=== PATIENT | male | born 1950 | race Caucasian/White ===

== ENCOUNTER → 2016-04-24 | Outpatient (CLI) | payer BC ==
[~2016-04-24] MED LIST: ACET-1257 PO; ASCO100061 PO; B-CO-25 PO; BACL1TAB PO; BACLOFEN PUMP SQ; CALC500C70 PO; CHOL1000 PO; DIME1CAP2 PO; DOCU100C PO; LEVO-366 PO; LRS10 PO; MISO200T PO; OMEG10007 PO; ONDA4TAB10 SL; SACC250C11 PO; SERT50TA PO; SODI1ENE RE; SULF800T23 PO
[2016-04-24 17:08] LABS: BASO % 0.9 %; BASO ABS # 0.08 K/uL (0-0.2); COMPLETE YES; EOS % 1.9 %; HEMATOCRIT 47.1 % (42-52); IG% 0.1 %; LYMPH % 24.4 %; LYMPH ABS # 2.23 K/uL (1.2-3.4); MEAN CELL VOLUME 92.7 fL (80-100); MEAN CORPUSCULAR HEMOGLOBIN 32.1 pg (25-34); MEAN CORPUSCULAR HGB CONC 34.6 g/dl (32-36); MEAN PLATELET VOLUME 11.2 fL (7.4-10.4); MONO % 8.5 %; NEUT % 64.2 %; PLATELET COUNT 341 K/uL (130-400); RED BLOOD COUNT 5.08 M/uL (4.7-6.1); WHITE BLOOD COUNT 9.15 K/uL (4.8-10.8)
[2016-04-24 17:16] LABS: ALT/SGPT 32 U/L (12-78); AST/SGOT 10 U/L (15-37); BLOOD UREA NITROGEN 18 mg/dl (7-18); BUN/CREATININE RATIO 24.8 (10-20); CALCIUM 9.3 mg/dl (8.5-10.1); CARBON DIOXIDE 29 mmol/L (21-32); CHLORIDE 99 mmol/L (98-107); CREATININE 0.72 mg/dl (0.60-1.40); GLUCOSE 82 mg/dl (70-99); POTASSIUM 4.2 mmol/L (3.5-5.1); SODIUM 138 mmol/L (136-145)
[2016-04-24 17:19] LABS: ALKALINE PHOSPHATASE 65 U/L (45-117)
== END | disposition home or self-care (01) ==
LOC: C.LABBC 12:41
PROVIDERS: ATTEND Psychiatry & Neurology Neurology
DX: G35 Multiple sclerosis (principal)

== ENCOUNTER → 2016-07-03 | Outpatient (CLI) | payer BC ==
[~2016-07-03] MED LIST changes: +AMX500 PO; +CIPR1TAB10 PO
[2016-07-03 11:33] LABS: ALT/SGPT 38 U/L (12-78); BLOOD UREA NITROGEN 11 mg/dl (7-18); BUN/CREATININE RATIO 13.8 (10-20); CALCIUM 9.5 mg/dl (8.5-10.1); CARBON DIOXIDE 34 mmol/L (21-32); CHLORIDE 101 mmol/L (98-107); GLUCOSE 91 mg/dl (70-99); POTASSIUM 4.5 mmol/L (3.5-5.1); SODIUM 139 mmol/L (136-145)
[2016-07-03 11:44] LABS: ALB/GLOB RATIO 0.9 (0.9-2); ALKALINE PHOSPHATASE 76 U/L (45-117); AST/SGOT 14 U/L (15-37)
[2016-07-06 20:01] LABS: JCV ANTIBODY POSITIVE; JCV INDEX 0.45
--- NOTE | 2016-07-09 08:38 | CODING QUERY MEDICAL NECESSITY ---
SUPPORTING DIAGNOSIS NEEDED Dr. Thomson, A supporting diagnosis is required for the test/procedure performed on this patient in order for us to be reimbursed by the patient's insurance. Please provide a supporting diagnosis for the following test/procedure listed below next to the test name along with your signature. *If there is no additional diagnosis for this patient that would support the following test/procedure please document that below next to the test/procedure. Test(s)/Procedure(s) that require a supporting diagnosis: * ([id number]) B12 VITAMIN LEVEL DIAGNOSIS: DATE OF SERVICE: 07/03/16 Provider Signature: Date: Thank you Mario Alberto Crouch [facility] Information Management Once completed, please kindly fax back to [phone] For questions please call [phone]
== END | disposition home or self-care (01) ==
LOC: C.LAB 09:16
PROVIDERS: ATTEND Psychiatry & Neurology Neurology
DX: G35 Multiple sclerosis (principal); E55.9 Vitamin D deficiency, unspecified; R41.3 Other amnesia

== ENCOUNTER → 2016-07-28 | Outpatient (CLI) | payer BC ==
[~2016-07-28] MED LIST changes: -LRS10 PO
[2016-07-28 15:00] LABS: URINE APPEARANCE CLEAR (CLEAR); URINE BILIRUBIN NEG (NEG); URINE COLOR YELLOW; URINE EPITHELIAL CELL AUTO >30 /lpf (0-5); URINE NITRITE NEG (NEG); URINE PH 6.5 (4.5-7.5); URINE SPECIFIC GRAVITY 1.008 (1.000-1.030); UROBILINOGEN NEG (NEG)
[2016-07-28 15:08] LABS: MANUAL MICROSCOPIC REQUIRED? NO; REVIEW REQ? YES
== END | disposition home or self-care (01) ==
LOC: C.LABSPEC 14:22
PROVIDERS: ATTEND Internal Medicine
DX: N39.0 Urinary tract infection, site not specified (principal)

== ENCOUNTER → 2016-07-30 | Outpatient (CLI) | payer BC | END | disposition home or self-care (01) | LOC: C.LABSPEC 12:24 | PROVIDERS: ATTEND Internal Medicine | DX: N39.0 Urinary tract infection, site not specified (principal) ==

== ENCOUNTER → 2016-08-01 | Outpatient (CLI) | payer BC ==
--- NOTE | 2016-08-01 14:47 | DIAGNOSTIC IMAGING REPORT ---
RENAL ULTRASOUND HISTORY: NEUROGENIC BLADDER COMPARISON: None. FINDINGS: Right kidney: Maximum dimension 9.2 cm. No evidence for hydronephrosis. Normal corticomedullary differentiation and cortical thickness. Left kidney: Maximum dimension 9.3 cm. No evidence for hydronephrosis. Normal corticomedullary differentiation and cortical thickness. Bladder: No bladder wall thickening. The bilateral ureteral jets were identified. IMPRESSION: Negative study Electronically signed by: Pelon Carballo M.D. 08/01/2016 2:46 PM Dictated Date/Time: 08/01/2016 2:45 PM
--- NOTE | 2016-08-01 15:08 | DIAGNOSTIC IMAGING REPORT ---
LUMBAR SPINE 2 OR 3 VIEWS CLINICAL HISTORY: NEUROGENIC BLADDER COMPARISON STUDY: 04/30/2010 FINDINGS: Bio stimulator and/or infusion catheter with the superior margin of proximal level of T9. There is been interval placement of an electrode in the left mid sacrum at approximately S2 level. No attached lead is identified. IMPRESSION: Electrode placed overlying the left S2 segment. Pre-existing intrathecal infusion device in the low thoracic region. Electronically signed by: Pelon Carballo M.D. 08/01/2016 3:06 PM Dictated Date/Time: 08/01/2016 3:02 PM
== END | disposition home or self-care (01) ==
LOC: C.ULTR 13:51
PROVIDERS: ATTEND Urology
DX: M79.5 Residual foreign body in soft tissue (principal); N31.9 Neuromuscular dysfunction of bladder, unspecified; R33.9 Retention of urine, unspecified

== ENCOUNTER → 2016-08-04 | Outpatient (CLI) | payer BC | END | disposition home or self-care (01) | LOC: C.LABSPEC 12:36 | PROVIDERS: ATTEND Internal Medicine | DX: N39.0 Urinary tract infection, site not specified (principal) ==

== ENCOUNTER → 2016-08-22 | Outpatient (CLI) | payer BC | LOC: C.LABSPEC 14:17 | PROVIDERS: ATTEND Internal Medicine | DX: N39.0 Urinary tract infection, site not specified (principal) ==

== ENCOUNTER 2016-09-02 09:28 | Day surgery (SDC) | payer BC ==
--- NOTE | 2016-06-30 09:08 | History and Physical ---
History & Physical Date of Service Jun 30, 2016. History & Physical Plan of care discussed with Dr. Solis CHIEF COMPLAINT: Chronic intractable lower extremity spasticity HISTORY OF PRESENT ILLNESS: Mr. Villegas is a 65 year old white male that is well known to the [facility] with a history of multiple sclerosis. Gradually throughout the disease he started to experience increased lower extremity spasticity which has caused the patient to remain wheelchair bound. Patient had the intrathecal Baclofen pump implanted in 2010 which does provide moderate improvement of the lower extremity spasticity. PAST MEDICAL HISTORY: 1. History of pressure ulcers 2. Multiple sclerosis 3. Gastroesophageal reflux disease 4. Neurogenic bladder PAST SURGICAL HISTORY: 1. Bladder stimulator implantation and removal, leads left in place 2. Intrathecal baclofen pump implantation 2010 3. Vasectomy SOCIAL HISTORY: Patient is . His is his primary branch service specialist. He does have 1 son from his previous marriage. No smoking, alcohol, or illicit substance abuse. ALLERGIES: No known drug allergies MEDICATIONS: 1. Tylenol 500 mg every 4 hours as needed 2. Ascorbic acid 1000 mg daily 3. Baclofen 5 mg PO as needed 4. Calcium/vitamin D 1 tablet every 2 days 5. Dimethyl fumarate 240 mg twice daily 6. Colace 400 mg daily 7. Fish oil 1 capsule daily 8. Sertraline 50 mg daily 9. Fleets enema typically 3 times weekly REVIEW OF SYSTEMS: Denies any constitutional, cardiac, pulmonary, neurological, GI, , extremity, endocrine, neuro, ENT, dermatological, or musculoskeletal complaints other than stated in HPI PHYSICAL EXAMINATION: VITAL SIGNS: Per admission GENERAL: Mr. Villegas is a 65 year old white male that appears older than his stated age. He appears frail. Speech and cognition is intact. Mood and affect is appropriate. HEAD: Normocephalic; atraumatic. EYES: Pupils are round, equal, and reactive to light; EOM intact. ENT: No external ear discharge or lesions. No rhinorrhea or epistaxis. No mucosal lesions. NECK: Full ROM; trachea is midline. CHEST: Regular chest respiration and excursion. ABDOMEN: Active bowel sounds throughout; non-tender to palpation. No peritoneal signs. Pump is located in the right lower quadrant. EXTREMITIES: There is atrophy of the bilateral lower extremities. There is moderate spasticity of the lower extremities. No ashlee spasms noted. BACK: No midline or facet tenderness. No SI joint tenderness. NEURO: CN II-XII grossly intact with no focal deficits noted. AAO x 3. SKIN: No lesions, erythema, or rashes noted. ASSESSMENT: Chronic intractable lower extremity spasticity secondary to multiple sclerosis TREATMENT: Mr. Villegas is a 65 year old white male that reports adequate lower extremity spasticity relief with the use of the intrathecal Baclofen pump. As the pump is estimated at 6 months, it is recommended that the intrathecal pump be replaced. Risks and benefits were reviewed with the patient. Procedure was explained and the patient would like to proceed with the pump replacement. The surgery is tentatively planned on 07/08/16.
[2016-07-03 09:43] VITALS: BMI 21.0
--- NOTE | 2016-07-03 10:28 | PAT Medication Instructions ---
Service Date Jul 03, 2016. Current Home Medication List Acetaminophen (Tylenol Extra Strength), 500 MG PO Q4H PRN for FEVER, PAIN Ascorbic Acid (Ascorbic Acid), 1,000 MG PO QAM B-Complex W/ Folic Acid (Super B Complex Maxi), 1 TAB PO QAM Baclofen (Lioresal), 0.5 TAB PO TID PRN for prn Calcium/Vitamin D (Os-Wild 500 Plus D), 1 TAB PO Q2D Cholecalciferol (Vitamin D3), 5,000 UNITS PO QAM Dimethyl Fumarate (Tecfidera), 240 MG PO BID Docusate Sodium (Stool Softener), 200 MG PO BID Fish Oil ([place]-3), 1 CAP PO BID Misoprostol (Cytotec), 100 MCG PO BID Saccharomyces Boulardii (Probiotic), 1 CAP PO QAM Sertraline (Zoloft), 1 TAB PO QAM Sodium Phosphates (Fleet Enema Six Pack), 1 RE THREE TIMES WEEKLY [Baclofen Pump], SQ CONTINOUS Medication Instructions For Your Scheduled Surgery Baclofen Pump SQ CONTINOUS (continue as usual) - Hold the following medications starting today (07/03/16) Fish Oil ([place]-3), 1 CAP PO BID - Hold the following medications the morning of surgery: Sodium Phosphates (Fleet Enema Six Pack), 1 RE THREE TIMES WEEKLY Saccharomyces Boulardii (Probiotic), 1 CAP PO QAM Docusate Sodium (Stool Softener), 200 MG PO BID Cholecalciferol (Vitamin D3), 5,000 UNITS PO QAM Calcium/Vitamin D (Os-Wild 500 Plus D), 1 TAB PO Q2D Baclofen (Lioresal), 0.5 TAB PO TID PRN for prn Ascorbic Acid (Ascorbic Acid), 1,000 MG PO QAM B-Complex W/ Folic Acid (Super B Complex Maxi), 1 TAB PO QAM Misoprostol (Cytotec), 100 MCG PO BID - Take the following medications the morning of surgery with a sip of water: Sertraline (Zoloft), 1 TAB PO QAM Dimethyl Fumarate (Tecfidera), 240 MG PO BID Acetaminophen (Tylenol Extra Strength), 500 MG PO Q4H PRN for FEVER, PAIN ( if needed) - Take the following medications as scheduled the night before surgery: Sodium Phosphates (Fleet Enema Six Pack), 1 RE THREE TIMES WEEKLY Docusate Sodium (Stool Softener), 200 MG PO BID Baclofen (Lioresal), 0.5 TAB PO TID PRN for prn Dimethyl Fumarate (Tecfidera), 240 MG PO BID Misoprostol (Cytotec), 100 MCG PO BID Acetaminophen (Tylenol Extra Strength), 500 MG PO Q4H PRN for FEVER, PAIN If you have any questions please call us at [phone] or [phone] ( Maira) or [phone]
[2016-07-03 11:26] LABS: BASO % 0.7 %; BASO ABS # 0.07 K/uL (0-0.2); COMPLETE YES; EOS % 1.6 %; HEMATOCRIT 46.1 % (42-52); IG% 0.1 %; LYMPH ABS # 1.75 K/uL (1.2-3.4); MEAN CELL VOLUME 92.4 fL (80-100); MEAN CORPUSCULAR HEMOGLOBIN 33.3 pg (25-34); MEAN PLATELET VOLUME 10.7 fL (7.4-10.4); MONO % 8.7 %; NEUT % 70.9 %; PLATELET COUNT 301 K/uL (130-400); RED BLOOD COUNT 4.99 M/uL (4.7-6.1); WHITE BLOOD COUNT 9.74 K/uL (4.8-10.8)
[2016-07-03 11:31] LABS: URINE APPEARANCE CLOUDY (CLEAR); URINE BILIRUBIN NEG (NEG); URINE COLOR YELLOW; URINE NITRITE POS (NEG); URINE PH 6.5 (4.5-7.5); URINE SPECIFIC GRAVITY 1.014 (1.000-1.030); UROBILINOGEN NEG (NEG)
[2016-07-03 11:39] LABS: MANUAL MICROSCOPIC REQUIRED? NO; REVIEW REQ? YES
[2016-07-03 11:40] LABS: URINE EPITHELIAL CELL AUTO 0-5 /lpf (0-5)
[~2016-09-02] VITALS: Ht 182.9 cm; Wt 70.5 kg
[~2016-09-02 09:28] MED LIST changes: -AMX500 PO; +CEFAZOLIN 2000 MG/60 ML D5W 50 ML IV SCH; +CEFAZOLIN 2000 MG/60 ML D5W IV SCH; -CIPR1TAB10 PO; +LACTATED RINGER'S 1000ML 1,000 ML IV SCH; -LEVO-366 PO; -ONDA4TAB10 SL; -SULF800T23 PO
[2016-09-02] MEDS ORDERED: MIDAZOLAM HCL 1 MG/ML 2ML VIAL ONE (09:40)
[2016-09-02] MEDS ORDERED: FENTANYL CITRATE INJ 50 MCG/1 ML 2 ML VIAL ONE (09:40)
[2016-09-02 10:15] VITALS: BP 122/60; PULSE 56; TEMP 36.7; O2SAT 99; Ht 182.9 cm; Wt 70.5 kg
[2016-09-02] MEDS ORDERED: LIDOCAINE HCL 2% 2 ML VIAL (20MG/ML) ONE (10:24)
[2016-09-02] MEDS ORDERED: PROPOFOL IV EMULSION 10 MG/ML 20 ML VIAL IV ONE ×2 (10:24→12:28)
--- NOTE | 2016-09-02 11:11 | History and Physical ---
History & Physical Date of Service Sep 02, 2016. History & Physical Plan of care discussed with Dr. Solis CHIEF COMPLAINT: Chronic intractable lower extremity spasticity HISTORY OF PRESENT ILLNESS: Mr. Villegas is a 66 year old white male that is well known to the [facility] with a history of multiple sclerosis. Gradually throughout the disease he started to experience increased lower extremity spasticity which has caused the patient to remain wheelchair bound. Patient had the intrathecal Baclofen pump implanted in 2010 which does provide moderate improvement of the lower extremity spasticity. PAST MEDICAL HISTORY: 1. History of pressure ulcers 2. Multiple sclerosis 3. Gastroesophageal reflux disease 4. Neurogenic bladder PAST SURGICAL HISTORY: 1. Bladder stimulator implantation and removal, leads left in place 2. Intrathecal baclofen pump implantation 2010 3. Vasectomy SOCIAL HISTORY: Patient is . His is his primary regional service manager. He does have 1 son from his previous marriage. No smoking, alcohol, or illicit substance abuse. ALLERGIES: No known drug allergies MEDICATIONS: 1. Tylenol 500 mg every 4 hours as needed 2. Ascorbic acid 1000 mg daily 3. Baclofen 5 mg PO as needed 4. Calcium/vitamin D 1 tablet every 2 days 5. Dimethyl fumarate 240 mg twice daily 6. Colace 400 mg daily 7. Fish oil 1 capsule daily 8. Sertraline 50 mg daily 9. Fleets enema typically 3 times weekly REVIEW OF SYSTEMS: Denies any constitutional, cardiac, pulmonary, neurological, GI, , extremity, endocrine, neuro, ENT, dermatological, or musculoskeletal complaints other than stated in HPI PHYSICAL EXAMINATION: VITAL SIGNS: Per admission GENERAL: Mr. Villegas is a 66 year old white male that appears older than his stated age. He appears frail. Speech and cognition is intact. Mood and affect is appropriate. HEAD: Normocephalic; atraumatic. EYES: Pupils are round, equal, and reactive to light; EOM intact. ENT: No external ear discharge or lesions. No rhinorrhea or epistaxis. No mucosal lesions. NECK: Full ROM; trachea is midline. CHEST: Regular chest respiration and excursion. ABDOMEN: Active bowel sounds throughout; non-tender to palpation. No peritoneal signs. Pump is located in the right lower quadrant. EXTREMITIES: There is atrophy of the bilateral lower extremities. There is moderate spasticity of the lower extremities. No ashlee spasms noted. BACK: No midline or facet tenderness. No SI joint tenderness. NEURO: CN II-XII grossly intact with no focal deficits noted. AAO x 3. SKIN: No lesions, erythema, or rashes noted. ASSESSMENT: Chronic intractable lower extremity spasticity secondary to multiple sclerosis TREATMENT: Mr. Villegas is a 66 year old white male that reports adequate lower extremity spasticity relief with the use of the intrathecal Baclofen pump. As the pump is about to , it is recommended that the intrathecal pump be replaced. Risks and benefits were reviewed with the patient. Procedure was explained and the patient would like to proceed with the pump replacement. The surgery is tentatively planned on 09/02/16
[2016-09-02] MEDS ORDERED: ONDANSETRON INJ 2 MG/ML 2 ML VIAL IV PRN (11:45)
[2016-09-02] MEDS ORDERED: HYDROCODONE/ACETAMOPHEN 5/325MG TAB PO PRN (11:45)
[2016-09-02] MEDS ORDERED: ATROPINE SULFATE 0.1 MG/ML 5ML SYR IV PRN (11:45)
[2016-09-02] MEDS ORDERED: LABETALOL HCL IV 5 MG/ML 20ML IV PRN (11:45)
[2016-09-02] MEDS ORDERED: LIDO 2%/EPINEPHRINE 1:100000 20 ML VIAL INFIL ONE (11:45)
[2016-09-02] MEDS ORDERED: BUPIVACAINE/EPINEPHRINE 0.25% 1:200,000 30 ML VIAL ONE (11:45)
[2016-09-02] MEDS ORDERED: HYDROmorphone INJ 2 MG/ML SYR/VIAL IV PRN (11:45)
[2016-09-02] MEDS ORDERED: BACITRACIN 50000 UNIT VIAL ONE (11:46)
--- NOTE | 2016-09-02 11:47 | Discharge Instructions ---
Discharge Instructions Date of Service Sep 02, 2016. Visit Reason for Visit: Multiple Sclerosis with Bilateral Lower Extremity Discharge Discharge Diagnosis / Problem: Spasticity Discharge Goals Goal(s): Decrease discomfort, Improve function Medications Stopped Medications Name(s): None Activity Recommendations Activity Recommendations: no repetitive bending, no repetitive reaching over head, no showers for 3 days Lifting Limitations: no more than 5 pounds Exercise/Sports Limitations: gradually increase as tolerated May Resume Sexual Activity: when tolerated Driving or Machine Use: resume 3 days after discharge Anesthesia . Post Anesthesia Instructions: If you have had General Anesthesia or IV Sedation: * Do not drive today. * Resume driving when surgeon permits. * Do not make important decisions or sign legal documents today. * Call surgeon for: * Temperature elevations greater than 101 degrees F. * Uncontrollable pain. * Excessive bleeding. * Persistent nausea and vomiting. * Medication intolerance (nausea, vomiting or rash). * For nausea and vomiting use only clear liquids such as: tea, soda, bouillon until nausea subsides, then gradually increase diet as tolerated. * If you have any concerns or questions, call your surgeon's office. If physician is unavailable and it is an emergency, call 911 or go to the nearest emergency room. . Instructions Instructions / Follow-Up . * Change dressings daily. Apply sterile dry gauze. * Call [facility] [phone] or go to the nearest emergency room if he experience high fevers, new back pain, new neurological symptoms such as numbness or weakness in the lower extremity or new bowel bladder incontinence. Also of call if he experience a headache that is positional. * Wear abdominal binder. * No showers for 3 days. * Resume normal activity. No repetitive bending, twisting or reaching overhead for 2 weeks. Do not lift more than 5 pounds for 2 weeks. . Follow-Up Follow-Up: 1 week in office for wound check Diet Recommendations Home Diet: resume previous diet Procedures Procedures Performed: Replacement intrathecal pump Pending Studies Studies pending at discharge: no Medical Emergencies . Who to Call and When: Medical Emergencies: If at any time you feel your situation is an emergency, please call 911 immediately. . Non-Emergent Contact Non-Emergency issues call your: Pain Management provider Call Non-Emergent contact if: temperature is above 101.5, your pain is not controlled, your pain is worsening, your pain is unusual for you, wound has increased drainage, wound has increased redness, wound has increased pain . . "Provider Documentation" section prepared by Ramon Solis. .
[2016-09-02] MEDS ORDERED: EpHEDrine SULFATE 50MG/5ML SYR ONE (12:28)
[2016-09-02] MEDS ORDERED: LARYING-O-JET KIT (LTA) ONE ×2 (12:28)
[2016-09-02] MEDS ORDERED: METOCLOPRAMIDE HCL INJ 5 MG/ML 2 ML VIAL ONE (12:28)
[2016-09-02] MEDS ORDERED: ONDANSETRON INJ 2 MG/ML 2 ML VIAL ONE (12:28)
--- NOTE | 2016-09-02 13:59 | [facility] Operative Report ---
Operative Report Operative Date Sep 02, 2016. Pre-Operative Diagnosis End of life intrathecal Baclofen pump Post-Operative Diagnosis same Surgeon Dr. Ramon Pardo Capacity Planning Manager Surgeon(s) Brenda Bright PA-c Estimated Blood Loss 10 ML Findings see below Specimens A: Explanted Intrathecal Baclofen pump Drains none Anesthesia General Complication(s) None Disposition Recovery Room / PACU Description of Procedure INTRATHECAL PUMP REPLACEMENT PROCEDURE PERFORMED: Intrathecal pump replacement PREOPERATIVE DIAGNOSIS: End of life intrathecal pump POSTOPERATIVE DIAGNOSIS: Same. COMPLICATIONS: None. SURGEON: Dr. Arvin Solis. ANESTHESIA: General. MATERIAL FORWARDED TO THE LAB: Explanted pump. EBL: 10 ml IMPLANTED PUMP SIZE: 20 mL. MEDICATIONS PLACED IN THE PUMP: Baclofen 1,500 mcg/ml INDICATIONS: The patient had an end of life pump with less than 1 month prior to system failure, thus requiring replacement. The patient was explained the risks, benefits, alternatives of the procedure and agreed to proceed as above. Informed consent was obtained and witnessed. A time out was performed after the patient was brought into the Operating Room. Antibiotics were given. The patient was then induced with general anesthesia without complications and was placed in the supine. The skin was prepped with drraprep and betadiene and draped in sterile fashion. The existing pump was identified and using a scalpel , electro cautery, and blunt dissection, the existing pump was exposed. The four retaining sutures were removed and the old pump was explanted. The catheter was disconnected from the old pump and free flowing CSF was noted. The new pump was opened and prepared according to [employer] standards and was filled with 20 mL of new medication of same type and concentration. The pump catheter was secured to the new pump and secured. The catheter access port was accessed and revealed free flowing CSF. Next, the pocket was irrigated with sterile normal saline with bacitracin. Hemostasis was checked. The new pump was placed into the pocket in the 12 O'clock position. The intrathecal pump was anchored in the pocket with 4-0 Prolene sutures. Both wounds were irrigated with bacitracin-containing normal saline. Both wounds were closed in similar fashion using continuous 0 V lock suture for deeper layer and running 3-0 V lock suture for subcuticular layer. Prineo to the skin. 4 x 4 gauze and pressure dressing was applied to both sites. Abdominal binder was placed. At the conclusion of the procedure, the pump was re-interrogated and reprogrammed to deliver baclofen 319.5 mcg per day. The patient was allowed to emerge from general anesthesia and transported to the recovery room in stable condition uneventfully. The patient will follow up at [facility] pain clinic within 7 days for a wound check and then plan to have the amee removed at day 14. I attest to the content of the Intraoperative Record and any orders documented therein. Any exceptions are noted below.
--- NOTE | 2016-09-02 14:15 | Anesthesiology Progress Note ---
Anesthesia Post Op Note Date & Time Sep 02, 2016 at 14:15 Vital Signs Pain Intensity: 0 Vital Signs Past 12 Hours Date Time Temp Pulse Resp B/P (MAP) Pulse Ox O2 Delivery O2 Flow Rate FiO2 09/02/16 13:39 36.5 86 16 114/70 96 Mask 10 09/02/16 10:15 36.7 56 18 122/60 (80) 99 Room Air Notes Mental Status: alert / awake / arousable, participated in evaluation Pt Amnestic to Procedure: Yes Nausea / Vomiting: adequately controlled Pain: adequately controlled Airway Patency, RR, SpO2: stable & adequate BP & HR: stable & adequate Hydration State: stable & adequate Anesthetic Complications: no major complications apparent
[2016-09-02 14:41] VITALS: BP 133/86; PULSE 87; TEMP 36.4; O2SAT 94
[2016-09-02 15:00] VITALS: BP 115/73; PULSE 80; O2SAT 96
[2016-09-02 15:30] VITALS: BP 117/70; PULSE 80; O2SAT 96
[2016-09-02 16:30] VITALS: BP 121/62; PULSE 76; TEMP 36.4; O2SAT 95
[2017-02-27] MEDS ORDERED: AMX500 PO (07:46)
[2017-02-27] MEDS ORDERED: CIPR1TAB10 PO (07:46)
== END 2016-09-02 16:50 | disposition home or self-care (01) ==
LOC: C.ACU 09:28
PROVIDERS: ATTEND Anesthesiology
DX: Z45.89 Encounter for adjustment and management of other implanted devices (principal); G35 Multiple sclerosis; K21.9 Gastro-esophageal reflux disease without esophagitis; N31.9 Neuromuscular dysfunction of bladder, unspecified; Z79.899 Other long term (current) drug therapy

== ENCOUNTER 2016-09-15 10:38 | Emergency (ER) | payer BC ==
[~2016-09-15] VITALS: Ht 182.9 cm; Wt 70.0 kg
[~2016-09-15 10:38] MED LIST changes: -CEFAZOLIN 2000 MG/60 ML D5W 50 ML IV SCH; -CEFAZOLIN 2000 MG/60 ML D5W IV SCH; -LACTATED RINGER'S 1000ML 1,000 ML IV SCH
[2016-09-15 11:04] VITALS: TEMP 36.5; Ht 182.9 cm; Wt 70.0 kg
[2016-09-15] MEDS ORDERED: SODIUM CHLORIDE 0.9% 1000ML 1,000 ML IV STA (12:08)
[2016-09-15] MEDS ORDERED: ONDANSETRON 8 MG/54 ML D5W IV STA (12:08)
[2016-09-15 12:28] LABS: BASO % 0.9 %; BASO ABS # 0.07 K/uL (0-0.2); COMPLETE YES; EOS % 2.3 %; HEMATOCRIT 47.5 % (42-52); IG% 0.2 %; LYMPH % 21.7 %; LYMPH ABS # 1.78 K/uL (1.2-3.4); MEAN CELL VOLUME 93.7 fL (80-100); MEAN CORPUSCULAR HEMOGLOBIN 32.3 pg (25-34); MEAN CORPUSCULAR HGB CONC 34.5 g/dl (32-36); MEAN PLATELET VOLUME 10.8 fL (7.4-10.4); MONO % 6.6 %; NEUT % 68.3 %; PLATELET COUNT 372 K/uL (130-400); RED BLOOD COUNT 5.07 M/uL (4.7-6.1); WHITE BLOOD COUNT 8.21 K/uL (4.8-10.8)
[2016-09-15 12:30] LABS: ALT/SGPT 30 U/L (12-78); AST/SGOT 13 U/L (15-37); BLOOD UREA NITROGEN 11 mg/dl (7-18); BUN/CREATININE RATIO 15.2 (10-20); CALCIUM 8.9 mg/dl (8.5-10.1); CARBON DIOXIDE 32 mmol/L (21-32); CHLORIDE 104 mmol/L (98-107); CREATININE 0.73 mg/dl (0.60-1.40); GLUCOSE 90 mg/dl (70-99); MAGNESIUM 2.4 mg/dl (1.8-2.4); POTASSIUM 4.6 mmol/L (3.5-5.1); SODIUM 141 mmol/L (136-145)
[2016-09-15 12:39] LABS: ALKALINE PHOSPHATASE 92 U/L (45-117); CKMB/CK RATIO 1.4 (0-3.0)
[2016-09-15 12:40] LABS: PARTIAL THROMBOPLASTIN RATIO 1.1; PROTHROMBIN TIME (PATIENT) 10.2 SECONDS (9.0-12.0)
--- NOTE | 2016-09-15 12:58 | DIAGNOSTIC IMAGING REPORT ---
CHEST ONE VIEW PORTABLE CLINICAL HISTORY: EVALUATE ALTERED MENTAL STATUS/WEAKNESS COMPARISON STUDY: 12/21/2014 FINDINGS: The bones soft tissues and hemidiaphragms are normal. The cardiomediastinal silhouette is normal. The lungs are clear. The pulmonary vasculature is normal. IMPRESSION: Negative chest. Electronically signed by: Pelon Carballo M.D. 09/15/2016 12:56 PM Dictated Date/Time: 09/15/2016 12:56 PM
[2016-09-15 14:10] LABS: URINE APPEARANCE CLOUDY (CLEAR); URINE BILIRUBIN NEG (NEG); URINE COLOR YELLOW; URINE NITRITE POS (NEG); URINE SPECIFIC GRAVITY 1.012 (1.000-1.030); UROBILINOGEN NEG (NEG); ZZURINE CULT IF INDIC CATH YES
[2016-09-15 14:11] LABS: MANUAL MICROSCOPIC REQUIRED? NO; REVIEW REQ? YES
[2016-09-15] MEDS ORDERED: CEFTRIAXONE SOD INJ 1 GM ADDVIAL IV STA (14:42)
[2016-09-15] MEDS ORDERED: LEVOFLOXACIN 250 MG TAB PO STA (15:46)
[2016-09-15] MEDS ORDERED: LEVO-366 PO (15:49)
--- NOTE | 2016-09-15 15:50 | EMERGENCY ROOM VISIT NOTE ---
History Report prepared by Orlando: Sundeep Martinez Under the Supervision of: Dr. Mario Flaherty D.O. First contact with patient: 12:07 Chief Complaint: NAUSEA Stated Complaint: NAUSEA, NOT DRINKING, LITTLE STOOL SURG. 09/02/16 Nursing Triage Summary: intermittent vomiting since has been nauseated. sees urologist for chronic uti. History of Present Illness The patient is a 66 year old male with a history of MS who presents to the Emergency Room with complaints of persistent nausea for the past four days. The patient has also experienced intermittent vomiting. The patient's nausea is better after he vomits but then worsens. He has also had a cough. The patient's believes that he has appeared to have increased confusion. An aid that helps take care of the patient told his that his scrotum appeared to be abnormally colored. The patient is treated for chronic UTIs and he follows up with Urology. He just finished two courses of antibiotics. The patient has a Baclofen pump for muscle spasms, which was replaced about two weeks ago. The notes that he has had some bleeding from the site of the pump. The patient has had MS for 29 years. Source of History: patient, spouse/significant other Onset: four days ago Position: other (GI) Quality: other (nausea) Timing: other (persistent) Modifying Factors (Relieving): other (vomiting) Associated Symptoms: + cough, + vomiting Review of Systems See HPI for pertinent positives & negatives. A total of 10 systems reviewed and were otherwise negative. Past Medical & Surgical Medical Problems: (1) MS (multiple sclerosis) Family History Cancer Lung disease Social History Smoking Status: Never Smoker Drug Use: none Marital Status: Occupation Status: retired, disabled Current/Historical Medications Scheduled Ascorbic Acid (Ascorbic Acid), 1,000 MG PO QAM B-Complex W/ Folic Acid (Super B Complex Maxi), 1 TAB PO QAM Calcium/Vitamin D (Os-Wild 500 Plus D), 1 TAB PO Q2D Cholecalciferol (Vitamin D3), 5,000 UNITS PO QAM Dimethyl Fumarate (Tecfidera), 240 MG PO BID Docusate Sodium (Stool Softener), 200 MG PO BID Fish Oil (Riley-3), 1 CAP PO BID Levofloxacin (Levaquin), 500 MG PO DAILY Misoprostol (Cytotec), 100 MCG PO BID Saccharomyces Boulardii (Probiotic), 1 CAP PO QAM Sertraline (Zoloft), 1 TAB PO QAM Sodium Phosphates (Fleet Enema Six Pack), 1 RE THREE TIMES WEEKLY [Baclofen Pump], SQ CONTINOUS Scheduled PRN Acetaminophen (Tylenol Extra Strength), 500 MG PO Q4H PRN for FEVER, PAIN Baclofen (Lioresal), 0.5 TAB PO TID PRN for prn Allergies Coded Allergies: No Known Allergies (Verified , 07/03/16) Physical Exam Vital Signs Date Time Temp Pulse Resp B/P (MAP) Pulse Ox O2 Delivery O2 Flow Rate FiO2 09/15/16 15:10 57 18 115/59 96 Room Air 09/15/16 14:09 54 16 113/58 96 Room Air 09/15/16 13:29 57 09/15/16 13:20 52 18 113/59 96 Room Air 09/15/16 12:21 53 18 105/58 96 Room Air 09/15/16 11:04 36.5 54 20 106/66 95 Room Air Physical Exam CONSTITUTIONAL/VITAL SIGNS: Reviewed / noted above. GENERAL: Chronic debility related to MS with extremity atrophy (wheelchair bound ) INTEGUMENTARY: Warm, dry, and [place]. HEAD: Normocephalic. EYES: without scleral icterus or trauma. ENT/OROPHARYNX: clear and moist. LYMPHADENOPATHY/NECK: Is supple without lymphadenopathy or meningismus. RESPIRATORY: Lungs clear and equal. CARDIOVASCULAR: Regular rate and rhythm. GI/ABDOMEN: Soft and nontender. No organomegaly or pulsatile mass. No rebound or guarding. Normal bowel sounds. EXTREMITIES: Warm and well perfused. BACK: No CVA tenderness. NEUROLOGICAL: Awake and alert. PSYCHIATRIC: normal affect. MUSCULOSKELETAL: Chronic debility related to MS with extremity atrophy ( wheelchair-bound). : [place] catheter with mild scrotal erythema. Medical Decision & Procedures ER Provider Diagnostic Interpretation: X ray results and stated below per my interpretation and radiology interpretation. CHEST ONE VIEW PORTABLE CLINICAL HISTORY: EVALUATE ALTERED MENTAL STATUS/WEAKNESS COMPARISON STUDY: 12/21/2014 FINDINGS: The bones soft tissues and hemidiaphragms are normal. The cardiomediastinal silhouette is normal. The lungs are clear. The pulmonary vasculature is normal. IMPRESSION: Negative chest. Electronically signed by: Pelon Carballo M.D. 09/15/2016 12:56 PM Dictated Date/Time: 09/15/2016 12:56 PM Laboratory Results 09/15/16 11:25 Red Blood Count 5.07, Mean Corpuscular Volume 93.7, Mean Corpuscular Hemoglobin 32.3, Mean Corpuscular Hemoglobin Concent 34.5, Mean Platelet Volume 10.8, Neutrophils (%) (Auto) 68.3, Lymphocytes (%) (Auto) 21.7, Monocytes (%) (Auto) 6.6, Eosinophils (%) (Auto) 2.3, Basophils (%) (Auto) 0.9, Neutrophils # (Auto) 5.61, Lymphocytes # (Auto) 1.78, Monocytes # (Auto) 0.54, Eosinophils # (Auto) 0.19, Basophils # (Auto) 0.07 09/15/16 11:25 Test 09/15/16 11:25 09/15/16 13:46 White Blood Count 8.21 K/uL (4.8-10.8) Red Blood Count 5.07 M/uL (4.7-6.1) Hemoglobin 16.4 g/dL (14.0-18.0) Hematocrit 47.5 % (42-52) Mean Corpuscular Volume 93.7 fL (80-100) Mean Corpuscular Hemoglobin 32.3 pg (25-34) Mean Corpuscular Hemoglobin Concent 34.5 g/dl (32-36) Platelet Count 372 K/uL (130-400) Mean Platelet Volume 10.8 fL (7.4-10.4) Neutrophils (%) (Auto) 68.3 % Lymphocytes (%) (Auto) 21.7 % Monocytes (%) (Auto) 6.6 % Eosinophils (%) (Auto) 2.3 % Basophils (%) (Auto) 0.9 % Neutrophils # (Auto) 5.61 K/uL (1.4-6.5) Lymphocytes # (Auto) 1.78 K/uL (1.2-3.4) Monocytes # (Auto) 0.54 K/uL (0.11-0.59) Eosinophils # (Auto) 0.19 K/uL (0-0.5) Basophils # (Auto) 0.07 K/uL (0-0.2) RDW Standard Deviation 47.3 fL (36.4-46.3) RDW Coefficient of Variation 13.9 % (11.5-14.5) Immature Granulocyte % (Auto) 0.2 % Immature Granulocyte # (Auto) 0.02 K/uL (0.00-0.02) Prothrombin Time 10.2 SECONDS (9.0-12.0) Prothromb Time International Ratio 1.0 (0.9-1.1) Activated Partial Thromboplast Time 27.7 SECONDS (21.0-31.0) Partial Thromboplastin Ratio 1.1 Anion Gap 5.0 mmol/L (3-11) Est Creatinine Clear Calc Drug Dose 101.2 ml/min Estimated GFR () 113.6 Estimated GFR (Non- 98.0 BUN/Creatinine Ratio 15.2 (10-20) Calcium Level 8.9 mg/dl (8.5-10.1) Magnesium Level 2.4 mg/dl (1.8-2.4) Total Bilirubin 0.4 mg/dl (0.2-1) Direct Bilirubin < 0.1 mg/dl (0-0.2) Aspartate Amino Transf (AST/SGOT) 13 U/L (15-37) Alanine Aminotransferase (ALT/SGPT) 30 U/L (12-78) Alkaline Phosphatase 92 U/L (45-117) Total Creatine Kinase 37 U/L (39-308) Creatine Kinase MB 0.5 ng/ml (0.5-3.6) Creatine Kinase MB Ratio 1.4 (0-3.0) Troponin I < 0.015 ng/ml (0-0.045) Total Protein 7.6 gm/dl (6.4-8.2) Albumin 3.7 gm/dl (3.4-5.0) Lipase 124 U/L (73-393) Thyroid Stimulating Hormone (TSH) 1.730 uIu/ml (0.300-4.500) Urine Color YELLOW Urine Appearance CLOUDY (CLEAR) Urine pH 8.0 (4.5-7.5) Urine Specific [place] 1.012 (1.000-1.030) Urine Protein NEG (NEG) Urine Glucose (UA) NEG (NEG) Urine Ketones NEG (NEG) Urine Occult Blood NEG (NEG) Urine Nitrite POS (NEG) Urine Bilirubin NEG (NEG) Urine Urobilinogen NEG (NEG) Urine Leukocyte Esterase LARGE (NEG) Urine WBC (Auto) 10-30 /hpf (0-5) Urine RBC (Auto) 0-4 /hpf (0-4) Urine Hyaline Casts (Auto) 1-5 /lpf (0-5) Urine Epithelial Cells (Auto) 5-10 /lpf (0-5) Urine Bacteria (Auto) 4+ (NEG) Urine Renal Epithelial Cells /lpf (0-5) Laboratory results as stated above per my review. Medications Administered Medications (Trade) Dose Ordered Sig/Yovana Route Start Time Stop Time Status Last Admin Dose Admin Sodium Chloride 1,000 ml @ 999 mls/hr Q1H1M STAT IV 09/15/16 12:08 09/15/16 13:08 DC 09/15/16 12:43 999 MLS/HR Ondansetron HCl (Zofran 8mg Iv) 8 mg NOW STAT IV 09/15/16 12:08 09/15/16 12:10 DC 09/15/16 12:43 8 MG Ceftriaxone Sodium (Rocephin Inj) 1 gm NOW STAT IV 09/15/16 14:42 09/15/16 14:43 DC 09/15/16 15:01 1 GM ECG Indication: nausea Rate (beats per minute): 53 Rhythm: sinus bradycardia Findings: no acute ischemic change, no ectopy ED Course 1208: Ordered Zofran 8 mg IV and NSS 1000 ml @ 999 mls/hr. 1235: Previous medical records were reviewed. The patient was evaluated in room A10. A complete history and physical examination was performed. 1442: Rocephin 1 gm IV. 1546: Levofloxacin 500 mg PO. 1550: Reassessed the patient. Discussed the findings. He verbalized understanding and agreement with the treatment plan. The patient is ready for discharge. Medical Decision Differential diagnosis: Etiologies such as metabolic, infection, hypo/hyperglycemia, electrolyte abnormalities, cardiac sources, intracerebral event, toxicologic, neurologic, as well as others were entertained. Medication Reconciliation: I attest that I have personally reviewed the patient' s current medication list. Blood pressure Screening: Patient was found to have normal blood pressure on screening and does not require follow-up. This is a 66-year-old male who presents to the ED with a chief complaint of nausea. The patient had a little bit of vomiting associated with nausea over the past 4 days. The patient has a history of MS. The family was concerned about urinary tract infection due to nausea and vomiting. He has had similar symptoms in the past. His vital signs are normal. His CBC and complete metabolic panel are normal. Troponin was negative. TSH is normal. Chest x- ray was negative for acute disease. EKG shows sinus bradycardia. Urine suggest infection. The patient was given IV Rocephin and by mouth Levaquin. He 'll be discharged on Levaquin. He is felt to be stable for discharge. Impression Primary Impression: UTI (urinary tract infection) Scribe Attestation The scribe's documentation has been prepared under my direction and personally reviewed by me in its entirety. I confirm that the note above accurately reflects all work, treatment, procedures, and medical decision making performed by me. Departure Information Dispostion Home / Self-Care Prescriptions Levofloxacin (Levaquin) 500 Mg Tab 500 MG PO DAILY for 7 Days, #7 TAB Prov: Mario Flaherty D.O. 09/15/16 Referrals Gato Robbins M.D. (PCP) Forms HOME CARE DOCUMENTATION FORM, IMPORTANT VISIT INFORMATION Patient Instructions My [facility] Additional Instructions Levaquin as prescribed for UTI. Follow-up with your doctor in 1-5 days if symptoms persist. Return for worsening or new concerns.
[2016-09-15 16:38] VITALS: BP 113/67; PULSE 58; O2SAT 96
--- NOTE | 2016-09-17 13:05 | Pharmacy Progress Note ---
ED Pharmacist Culture FollowUp Date of Service: Sep 17, 2016. Patient was sent home with a prescription for levofloxacin, which should cover the Citrobacter freundii growing from the patient's urine culture.
[2017-02-27] MEDS ORDERED: AMX500 PO (07:46)
[2017-02-27] MEDS ORDERED: CIPR1TAB10 PO (07:46)
== END 2016-09-15 17:01 | disposition home or self-care (01) ==
LOC: C.EDB 10:39 → C.EDA 17:01
DX: N39.0 Urinary tract infection, site not specified (principal); G35 Multiple sclerosis; Z80.9 Family history of malignant neoplasm, unspecified; Z83.6 Family history of other diseases of the respiratory system; Z79.899 Other long term (current) drug therapy

== ENCOUNTER 2016-09-23 12:23 | Emergency (ER) | payer BC ==
[~2016-09-23] VITALS: Ht 182.9 cm; Wt 70.0 kg
[~2016-09-23 12:23] MED LIST changes: +LEVO-366 PO
[2016-09-23 12:28] VITALS: TEMP 36.4; Ht 182.9 cm; Wt 70.0 kg
[2016-09-23] MEDS ORDERED: SODIUM CHLORIDE 0.9% 1000ML 1,000 ML IV STA (12:40)
[2016-09-23] MEDS ORDERED: KETOROLAC TROMETHAMINE 30 MG/ML VIAL IV STA (12:40)
[2016-09-23] MEDS ORDERED: PROMETHAZINE HCL INJ 25 MG in SODIUM CHLORIDE 0.9% 50ML 50 ML IV STA (12:40)
--- NOTE | 2016-09-23 12:46 | EMERGENCY ROOM VISIT NOTE ---
History Report prepared by Orlando: Lauryn Amlendarez Under the Supervision of: Dr. Mario David M.D. First contact with patient: 12:34 Chief Complaint: VOMITING Stated Complaint: VOMITING, MS, RECENT SURG Nursing Triage Summary: pt to the ED with vomitting and wound dehisance per since getting baclofen pump changed at pain clinic History of Present Illness The patient is a 66 year old male who presents to the Emergency Room with complaints of persistent vomiting since Thursday. Per the patient's , the patient recently had surgery to replace his pain pump. She states that the patient receives Baclofen for his muscle spasms. The patient's states that the patient was instructed to rest for a week after his surgery. She states that the patient saw Dr. Aguilar today and was instructed to come to the emergency department for further evaluation. The patient's states that the patient has been vomiting since Thursday and has not been able to keep anything down. She notes that the patient recently had a UTI. The patient's states that the patient has additionally been constipated. The patient denies any abdominal pain. Source of History: patient, spouse/significant other () Onset: Thursday Position: other (global) Quality: other (vomiting) Timing: other (persistent) Associated Symptoms: No abdominal pain Review of Systems See HPI for pertinent positives & negatives. A total of 10 systems reviewed and were otherwise negative. Past Medical & Surgical Medical Problems: (1) MS (multiple sclerosis) Family History Cancer Lung disease Social History Smoking Status: Never Smoker Drug Use: none Marital Status: Occupation Status: retired, disabled Current/Historical Medications Scheduled Ascorbic Acid (Ascorbic Acid), 1,000 MG PO QAM B-Complex W/ Folic Acid (Super B Complex Maxi), 1 TAB PO QAM Calcium/Vitamin D (Os-Wild 500 Plus D), 1 TAB PO Q2D Cholecalciferol (Vitamin D3), 5,000 UNITS PO QAM Dimethyl Fumarate (Tecfidera), 240 MG PO BID Docusate Sodium (Stool Softener), 200 MG PO BID Fish Oil (Gordon-3), 1 CAP PO BID Misoprostol (Cytotec), 100 MCG PO BID Ondasetron Odt (Zofran Odt), 4 MG SL Q6H Saccharomyces Boulardii (Probiotic), 1 CAP PO QAM Sertraline (Zoloft), 1 TAB PO QAM Sodium Phosphates (Fleet Enema Six Pack), 1 RE THREE TIMES WEEKLY Sulfamethoxazole-Trimethoprim (Bactrim Ds 800MG/160MG), 1 TAB PO BID [Baclofen Pump], SQ CONTINOUS Scheduled PRN Acetaminophen (Tylenol Extra Strength), 500 MG PO Q4H PRN for FEVER, PAIN Baclofen (Lioresal), 0.5 TAB PO TID PRN for prn Allergies Coded Allergies: No Known Allergies (Verified , 09/23/16) Physical Exam Vital Signs Date Time Temp Pulse Resp B/P (MAP) Pulse Ox O2 Delivery O2 Flow Rate FiO2 09/23/16 16:51 57 18 116/70 97 09/23/16 14:56 57 18 124/75 94 Room Air 09/23/16 12:57 61 09/23/16 12:28 36.4 Room Air Physical Exam GENERAL: Patient is a healthy-appearing well-nourished male, vomiting into bag. HEAD: Normocephalic atraumatic EYES: Ocular movements intact pupils equal and react to light OROPHARYNX mucous membranes are moist no exudates present no erythema or edema present NECK: Supple no nuchal rigidity CHEST: Good equal expansion LUNGS: Clear and equal to auscultation CARDIAC: Normal S1 and S2 ABDOMEN: Binder in place that was just checked by the clinic, does not want me to disturb the binder. Soft nontender no guarding BACK: No CVA tenderness EXTREMITIES: No pain upon palpation normal muscle strength in all groups no clubbing cyanosis or edema NEURO: Patient is following commands and answering questions appropriately. Alert and oriented x3 Cranial Nerves 2-12 grossly intact Medical Decision & Procedures ER Provider Diagnostic Interpretation: CT results as stated below per my review and radiologist interpretation: CT OF THE ABDOMEN AND PELVIS WITH CONTRAST CLINICAL HISTORY: Abdominal pain and vomiting. Multiple sclerosis. COMPARISON STUDY: Renal ultrasound August 01, [address] of the pelvis March 20, 2010. TECHNIQUE: Following IV administration of 94 mL of Optiray-320, axial images of the abdomen and pelvis were obtained from the lung bases to the proximal femurs. Images were reviewed in the axial, sagittal, and coronal planes. IV contrast was administered without complication. CT DOSE: 506.42 mGy.cm FINDINGS: Intrathecal catheter is incidentally noted. There is bilateral gynecomastia. There are gallstones within the gallbladder. The gallbladder is not distended. There is no pericholecystic infiltration. Numerous hepatic cysts are present. There are numerous subcentimeter hepatic lesions which are too small to characterize but likely reflect cysts as well. The spleen, adrenal glands, right kidney and pancreas are normal. There is a 3 mm calculus within the midpole of the left kidney. There are no ureteral calculi. There is no hydronephrosis. Hyperdensities within the bladder suggests bladder calculi. There is a [place]ch[place] balloon within the bladder. There is no evidence for a bowel obstruction. There is a moderate amount of stool within the colon. No lymphadenopathy is present. There are no suspicious skeletal lesions. There is extensive aortoiliac atherosclerosis. There is suspected moderate to severe stenosis of the distal right common iliac artery. IMPRESSION: 1. No acute process within the abdomen or pelvis. Normal appendix. 2. Moderate amount of stool within the colon. No bowel obstruction. 3. Bladder calculi and a 3 mm left renal calculus. No ureteral calculi or hydronephrosis. 4. Numerous suspected hepatic cysts. 5. Cholelithiasis. 6. Extensive aortoiliac atherosclerosis with suspected moderate to severe stenosis of the distal right common iliac artery. Electronically signed by: Horacio Angela M.D. 09/23/2016 3:09 PM Dictated Date/Time: 09/23/2016 2:57 PM Laboratory Results 09/23/16 13:40 Red Blood Count 5.17, Mean Corpuscular Volume 91.7, Mean Corpuscular Hemoglobin 33.5, Mean Corpuscular Hemoglobin Concent 36.5, Mean Platelet Volume 10.5, Neutrophils (%) (Auto) 78.2, Lymphocytes (%) (Auto) 12.9, Monocytes (%) (Auto) 7.8, Eosinophils (%) (Auto) 0.5, Basophils (%) (Auto) 0.3, Neutrophils # (Auto) 7.96, Lymphocytes # (Auto) 1.31, Monocytes # (Auto) 0.79, Eosinophils # (Auto) 0.05, Basophils # (Auto) 0.03 09/23/16 13:40 Test 09/23/16 13:40 09/23/16 13:45 09/23/16 14:30 White Blood Count 10.17 K/uL (4.8-10.8) Red Blood Count 5.17 M/uL (4.7-6.1) Hemoglobin 17.3 g/dL (14.0-18.0) Hematocrit 47.4 % (42-52) Mean Corpuscular Volume 91.7 fL (80-100) Mean Corpuscular Hemoglobin 33.5 pg (25-34) Mean Corpuscular Hemoglobin Concent 36.5 g/dl (32-36) Platelet Count 348 K/uL (130-400) Mean Platelet Volume 10.5 fL (7.4-10.4) Neutrophils (%) (Auto) 78.2 % Lymphocytes (%) (Auto) 12.9 % Monocytes (%) (Auto) 7.8 % Eosinophils (%) (Auto) 0.5 % Basophils (%) (Auto) 0.3 % Neutrophils # (Auto) 7.96 K/uL (1.4-6.5) Lymphocytes # (Auto) 1.31 K/uL (1.2-3.4) Monocytes # (Auto) 0.79 K/uL (0.11-0.59) Eosinophils # (Auto) 0.05 K/uL (0-0.5) Basophils # (Auto) 0.03 K/uL (0-0.2) RDW Standard Deviation 45.4 fL (36.4-46.3) RDW Coefficient of Variation 13.5 % (11.5-14.5) Immature Granulocyte % (Auto) 0.3 % Immature Granulocyte # (Auto) 0.03 K/uL (0.00-0.02) Est Creatinine Clear Calc Drug Dose 99.8 ml/min Estimated GFR () 113.0 Estimated GFR (Non- 97.5 BUN/Creatinine Ratio 15.9 (10-20) Calcium Level 9.2 mg/dl (8.5-10.1) Total Bilirubin 0.6 mg/dl (0.2-1) Direct Bilirubin 0.2 mg/dl (0-0.2) Aspartate Amino Transf (AST/SGOT) 14 U/L (15-37) Alanine Aminotransferase (ALT/SGPT) 34 U/L (12-78) Alkaline Phosphatase 92 U/L (45-117) Total Protein 8.0 gm/dl (6.4-8.2) Albumin 3.9 gm/dl (3.4-5.0) Lipase 113 U/L (73-393) Bedside Hemoglobin 17.3 g/dl (14.0-18.0) Bedside Hematocrit 51 % (42-52) Bedside Sodium 138 mEq/L (135-144) Bedside Potassium 4.1 mEq/L (3.3-5.0) Bedside Chloride 96 mEq/L (101-112) Bedside Total CO2 28 mEq/l (24-31) Anion Gap 19.0 mmol/L (16-25) Bedside Blood Urea Nitrogen 13 mg/dl (7-18) Bedside Creatinine 0.6 mg/dl (0.6-1.3) Bedside Glucose (other) 116 mg/dl (70-99) Bedside Ionized Calcium (Louise) 1.15 mmol/l (1.12-1.32) Urine Color DK YELLOW Urine Appearance TURBID (CLEAR) Urine pH 6.0 (4.5-7.5) Urine Specific [place] 1.017 (1.000-1.030) Urine Protein 2+ (NEG) Urine Glucose (UA) NEG (NEG) Urine Ketones NEG (NEG) Urine Occult Blood 3+ (NEG) Urine Nitrite POS (NEG) Urine Bilirubin NEG (NEG) Urine Urobilinogen NEG (NEG) Urine Leukocyte Esterase LARGE (NEG) Urine WBC (Auto) >30 /hpf (0-5) Urine RBC (Auto) 5-10 /hpf (0-4) Urine Hyaline Casts (Auto) 1-5 /lpf (0-5) Urine Epithelial Cells (Auto) >30 /lpf (0-5) Urine Bacteria (Auto) 4+ (NEG) Urine Renal Epithelial Cells /lpf (0-5) Urine Crystals CALCIUM OXALATE (NONE Urine Pathogenic Casts /lpf (0) Urine Yeast (Auto) (NONE PRSENT) Labs reviewed by ED physician. Medications Administered Medications (Trade) Dose Ordered Sig/Yovana Route Start Time Stop Time Status Last Admin Dose Admin Sodium Chloride 1,000 ml @ 999 mls/hr Q1H1M STAT IV 09/23/16 12:40 09/23/16 13:40 DC 09/23/16 13:44 999 MLS/HR Ketorolac Tromethamine (Toradol Inj) 30 mg NOW STAT IV 09/23/16 12:40 09/23/16 12:44 DC 09/23/16 13:50 30 MG Promethazine HCl 25 mg/Sodium Chloride 51 ml @ 204 mls/hr NOW STAT IV 09/23/16 12:40 09/23/16 12:54 DC 09/23/16 13:45 204 MLS/HR Trimethoprim/ Sulfamethoxazole (Septra Ds 800/ 160MG Tab) 1 tab NOW STAT PO 09/23/16 15:57 09/23/16 15:58 DC 09/23/16 16:03 1 TAB ED Course 1236: Past medical records reviewed. The patient was evaluated in room B12B. A complete history and physical examination was performed. 1240: Ordered Promethazine HCl 25 mg/Sodium Chloride 51 ml @ 204 mls/hr IV, Toradol Inj 30 mg IV, Sodium Chloride 1000 ml @ 999 mls/hr IV. 1555: Ordered Rocephin Inj 1 gm IV. 1557: Ordered Trimethoprim/Sulfamethoxazole 1 tab PO. 1615: I reevaluated the patient and he is resting comfortably. I discussed the exam findings with him and I discussed the treatment plan. He verbalized complete understanding and agreement. He is ready to go home. Medical Decision Differential diagnosis: Etiologies such as appendicitis, diverticulitis, PUD, biliary pathology, UTI, pancreatitis, obstruction, mesenteric ischemia, aortic pathology, infections, inflammatory bowel disease, renal colic, as well as others were entertained. Medication Reconciliation: I attest that I have personally reviewed the patient' s current medication list Blood Pressure Screening: Patient was found to have normal blood pressure on screening and does not require follow up. This is a 66-year-old male who presents emergency department complaining of vomiting. The patient has a soft benign abdominal examination however he reports he is not bowels since his surgery. For this reason he was sent for CAT scan of the abdomen and pelvis. In addition the patient was also given Zofran in the emergency department. His old urine cultures and medications were reviewed. I'm going to place the patient on Bactrim for what appears to be urinary tract infection. A [place]ch[place] catheter was placed as the patient appears to be retaining. This is most likely related to his constipation. For this reason he was given MiraLAX and told to add Gatorade. He was also given Zofran for home. The patient was able to tolerate oral Gatorade in the emergency department and I feel safe enough to be discharged home. Patient was in agreement with the treatment plan. Impression Primary Impression: UTI (urinary tract infection) Additional Impressions: Constipation Vomiting Scribe Attestation The scribe's documentation has been prepared under my direction and personally reviewed by me in its entirety. I confirm that the note above accurately reflects all work, treatment, procedures, and medical decision making performed by me. Departure Information Dispostion Home / Self-Care Prescriptions Ondasetron Odt (ZOFRAN ODT) 4 Mg Tab 4 MG SL Q6H for Nausea, #6 TAB Prov: Mario David MD 09/23/16 Sulfamethoxazole-Trimethoprim (Bactrim Ds 800MG/160MG) 1 Tab Tab 1 TAB PO BID for 14 Days, #28 TAB Prov: Mario David MD 09/23/16 Referrals Gato Robbins M.D. (PCP) Forms HOME CARE DOCUMENTATION FORM, IMPORTANT VISIT INFORMATION, School Instructions, Work Instructions Patient Instructions ED Catheter Care Co[place], ED Constipation, ED UTI Cystitis Male, My [facility] Additional Instructions Take 10 oz bottle of miralax; Add to 16 oz of gatorade Drink continuously until moving creamy stools Clear liquid diet for next 48 hours Return if you develop fevers or pain worsens Culture results are usually available in approx 48 hours You have been examined and treated today on an emergency basis only. This is not a substitute for, or an effort to provide, complete comprehensive medical care. It is impossible to recognize and treat all injuries or illnesses in a single emergency department visit. It is therefore important that you follow up closely with Dr Brian Stephens. Call as soon as possible for an appointment. Thank you for your time and consideration. I look forward to speaking with you again soon. Please don't hesitate to call us if you have any questions. Problem Qualifiers Primary Impression: UTI (urinary tract infection) Urinary tract infection type: acute cystitis Hematuria presence: without hematuria Qualified Codes: N30.00 - Acute cystitis without hematuria Additional Impressions: Constipation Constipation type: unspecified constipation type Qualified Codes: K59.00 - Constipation, unspecified Vomiting Vomiting type: unspecified Vomiting Intractability: unspecified Nausea presence: unspecified Qualified Codes: R11.10 - Vomiting, unspecified
[2016-09-23] MEDS ORDERED: OPTIRAY 320 IV PRN (13:00)
[2016-09-23 13:52] LABS: BASO % 0.3 %; BASO ABS # 0.03 K/uL (0-0.2); COMPLETE YES; EOS % 0.5 %; HEMATOCRIT 47.4 % (42-52); IG% 0.3 %; LYMPH % 12.9 %; LYMPH ABS # 1.31 K/uL (1.2-3.4); MEAN CELL VOLUME 91.7 fL (80-100); MEAN CORPUSCULAR HEMOGLOBIN 33.5 pg (25-34); MEAN CORPUSCULAR HGB CONC 36.5 g/dl (32-36); MEAN PLATELET VOLUME 10.5 fL (7.4-10.4); MONO % 7.8 %; NEUT % 78.2 %; PLATELET COUNT 348 K/uL (130-400); RED BLOOD COUNT 5.17 M/uL (4.7-6.1); WHITE BLOOD COUNT 10.17 K/uL (4.8-10.8)
[2016-09-23 14:00] LABS: ISTAT CREATININE 0.6 mg/dl (0.6-1.3); ISTAT HEMOGLOBIN 17.3 g/dl (14.0-18.0); ISTAT IONIZED CALCIUM 1.15 mmol/l (1.12-1.32)
[2016-09-23 14:06] LABS: BUN/CREATININE RATIO 15.9 (10-20); CALCIUM 9.2 mg/dl (8.5-10.1); CREATININE 0.74 mg/dl (0.60-1.40)
[2016-09-23 14:52] LABS: URINE APPEARANCE TURBID (CLEAR); URINE COLOR DK YELLOW; URINE EPITHELIAL CELL AUTO >30 /lpf (0-5); URINE NITRITE POS (NEG); URINE SPECIFIC GRAVITY 1.017 (1.000-1.030); UROBILINOGEN NEG (NEG); ZZURINE CULT IF INDIC CATH YES
[2016-09-23 15:02] LABS: REVIEW REQ? YES
[2016-09-23 15:03] LABS: MANUAL MICROSCOPIC REQUIRED? NO; URINE BILIRUBIN NEG (NEG)
--- NOTE | 2016-09-23 15:11 | DIAGNOSTIC IMAGING REPORT ---
CT OF THE ABDOMEN AND PELVIS WITH CONTRAST CLINICAL HISTORY: Abdominal pain and vomiting. Multiple sclerosis. COMPARISON STUDY: Renal ultrasound August 01, [address] of the pelvis March 20, 2010. TECHNIQUE: Following IV administration of 94 mL of Optiray-320, axial images of the abdomen and pelvis were obtained from the lung bases to the proximal femurs. Images were reviewed in the axial, sagittal, and coronal planes. IV contrast was administered without complication. CT DOSE: 506.42 mGy.cm FINDINGS: Intrathecal catheter is incidentally noted. There is bilateral gynecomastia. There are gallstones within the gallbladder. The gallbladder is not distended. There is no pericholecystic infiltration. Numerous hepatic cysts are present. There are numerous subcentimeter hepatic lesions which are too small to characterize but likely reflect cysts as well. The spleen, adrenal glands, right kidney and pancreas are normal. There is a 3 mm calculus within the midpole of the left kidney. There are no ureteral calculi. There is no hydronephrosis. Hyperdensities within the bladder suggests bladder calculi. There is a Cochran balloon within the bladder. There is no evidence for a bowel obstruction. There is a moderate amount of stool within the colon. No lymphadenopathy is present. There are no suspicious skeletal lesions. There is extensive aortoiliac atherosclerosis. There is suspected moderate to severe stenosis of the distal right common iliac artery. IMPRESSION: 1. No acute process within the abdomen or pelvis. Normal appendix. 2. Moderate amount of stool within the colon. No bowel obstruction. 3. Bladder calculi and a 3 mm left renal calculus. No ureteral calculi or hydronephrosis. 4. Numerous suspected hepatic cysts. 5. Cholelithiasis. 6. Extensive aortoiliac atherosclerosis with suspected moderate to severe stenosis of the distal right common iliac artery. Electronically signed by: Horacio Angela M.D. 09/23/2016 3:09 PM Dictated Date/Time: 09/23/2016 2:57 PM
[2016-09-23] MEDS ORDERED: CEFTRIAXONE SOD INJ 1 GM ADDVIAL IV STA (15:55)
[2016-09-23] MEDS ORDERED: SULFAMETHOXAZOLE/TRIMETHOPRIM DS 800/160MG TAB PO STA (15:57)
[2016-09-23] MEDS ORDERED: SULF800T23 PO (16:22)
[2016-09-23] MEDS ORDERED: ONDA4TAB10 SL (16:22)
[2016-09-23 16:51] VITALS: BP 116/70; PULSE 57; O2SAT 97
--- NOTE | 2016-09-26 15:53 | Pharmacy Progress Note ---
ED Pharmacist Culture FollowUp Date of Service: Sep 26, 2016. Urine cx (cath specimen) is growing enterococcus avium. This organism is not sensitive to the Bactrim that was prescribed for the patient when discharged from the ER. Reviewed cx results with Dr Carr and the decision was made to place the patient on Amoxil 500mg PO TID x 10 days. I contacted the patient's today ([phone]) and she stated Dr Peres 's office had already contacted her today and is prescribing a new ABX. I confirmed this with Dr Peres's office staff as they stated they had reviewed the same cx result today and changed ABX. I instructed the patient to follows Dr Peres's instructions. No further action required from ED standpoint.
== END 2016-09-23 16:53 | disposition home or self-care (01) ==
LOC: C.EDB 12:26
DX: N39.0 Urinary tract infection, site not specified (principal); K59.00 Constipation, unspecified; R33.9 Retention of urine, unspecified; R11.10 Vomiting, unspecified; G35 Multiple sclerosis; N20.0 Calculus of kidney; K80.20 Calculus of gallbladder without cholecystitis without obstruction; Z79.899 Other long term (current) drug therapy

== ENCOUNTER → 2016-11-03 | Outpatient (CLI) | payer BC ==
[~2016-11-03] MED LIST changes: -LEVO-366 PO; +ONDA4TAB10 SL
[2016-11-03 14:34] LABS: MEAN CELL VOLUME 94.4 fL (80-100); MEAN CORPUSCULAR HEMOGLOBIN 32.3 pg (25-34); MEAN CORPUSCULAR HGB CONC 34.3 g/dl (32-36); MEAN PLATELET VOLUME 11.3 fL (7.4-10.4); PLATELET COUNT 260 K/uL (130-400); RED BLOOD COUNT 4.98 M/uL (4.7-6.1); WHITE BLOOD COUNT 8.95 K/uL (4.8-10.8)
[2016-11-03 14:46] LABS: BLOOD UREA NITROGEN 19 mg/dl (7-18); BUN/CREATININE RATIO 20.4 (10-20); CALCIUM 9.3 mg/dl (8.5-10.1); CARBON DIOXIDE 30 mmol/L (21-32); CHLORIDE 100 mmol/L (98-107); CREATININE 0.92 mg/dl (0.60-1.40); GLUCOSE 138 mg/dl (70-99); SODIUM 137 mmol/L (136-145)
--- NOTE | 2016-11-11 09:38 | CODING QUERY MEDICAL NECESSITY ---
CQSUPPORTING DIAGNOSIS NEEDED A supporting diagnosis is required for the test/procedure performed on this patient in order for us to be reimbursed by the patient's insurance. Please provide a supporting diagnosis for the following test/procedure listed below next to the test name along with your signature. *If there is no additional diagnosis for this patient that would support the following test/procedure please document that below next to the test/procedure. Test(s)/Procedure(s) that require a supporting diagnosis: YANET 11/03/16 URINE CULTURE Provider Signature: Date: Thank you Nalini Aleman [employer] Once completed, please kindly fax back to [phone] For questions please call [phone]
== END | disposition home or self-care (01) ==
LOC: C.LABSPEC 12:35
PROVIDERS: ATTEND Psychiatry & Neurology Neurology
DX: G35 Multiple sclerosis (principal); Z96.0 Presence of urogenital implants; N39.0 Urinary tract infection, site not specified; N31.9 Neuromuscular dysfunction of bladder, unspecified

== ENCOUNTER → 2016-11-06 | Outpatient (CLI) | payer BC ==
[~2016-11-06] MED LIST changes: +GADAVIST IV PRN
--- NOTE | 2016-11-06 12:18 | DIAGNOSTIC IMAGING REPORT ---
KUB HISTORY: 66 years-old Male G35 Generalized multiple [id number] COMPARISON: CT abdomen and pelvis 09/23/2016 TECHNIQUE: K be radiograph FINDINGS: Right lower abdominal battery pack with intrathecal lead is incidentally noted entering the spinal canal at the T2-L3 level. Metallic density focus overlying the soft tissues at the level of the sacrum posteriorly is again seen. Moderate volume of formed stool is present throughout the transverse, descending and sigmoid colon. Nonobstructive bowel gas pattern. No definite urolithiasis. The previously noted 3 mm calculus of the left kidney is not definitely seen. There is no gross pneumoperitoneum. Cholelithiasis redemonstrated. There is convex right curvature of the lower thoracic spine. No fracture. Moderate changes involving bilateral hips. IMPRESSION: 1. Suggested constipation without evidence of bowel obstruction. 2. Previously noted 3 mm left renal calculus is not definitely seen. 3. Cholelithiasis. The above report was generated using voice recognition software. It may contain grammatical, syntax or spelling errors. Electronically signed by: Durga Case M.D. 11/06/2016 12:17 PM Dictated Date/Time: 11/06/2016 12:13 PM
--- NOTE | 2016-11-06 14:05 | DIAGNOSTIC IMAGING REPORT ---
Brain MRI WITH AND WITHOUT CONTRAST HISTORY: G35 arm weakness. Multiple [id number] TECHNIQUE: Multiplanar multisequence MRI of the brain was performed both before and after the intravenous administration of contrast. COMPARISON STUDY: Head CT 04/11/2008. Brain MRI 02/27/2006. FINDINGS: No areas of restricted diffusion to suggest acute infarction. Foci of increased signal within the brain on the DWI sequences likely represents T2 shine through. The midline structures are intact. The paranasal sinuses and mastoid air cells are clear. Ventricular prominence favors atrophic changes. The orbits are unremarkable. There is no mass, hematoma, or midline shift. The major vascular flow-voids at the skull base are well-maintained. Small T2 hyperintense focus within the left thalamus may be due to an old lacunar infarct. Patchy and multiple scattered foci of T2 hyperintensity within the periventricular and subcortical white matter of the supratentorial brain. There are also multiple T2 hyperintense foci within the sophia, middle cerebral peduncles, and cerebellar hemispheres. No abnormal enhancement. IMPRESSION: Multiple white matter plaques seen throughout the supratentorial and infratentorial brain consistent with the patient's history of multiple sclerosis. Overall, this is slightly progressed compared to the 2005 examination. No abnormal enhancement to suggest active demyelination. Electronically signed by: Michael Haque M.D. 11/06/2016 2:04 PM Dictated Date/Time: 11/06/2016 1:55 PM
--- NOTE | 2016-11-06 14:34 | DIAGNOSTIC IMAGING REPORT ---
MRI OF THE CERVICAL SPINE WITH AND WITHOUT CONTRAST CLINICAL HISTORY: Generalized multiple sclerosis. Bilateral arm weakness. Cognitive decline. COMPARISON: None. TECHNIQUE: Utilizing a 1.5 Shoshana magnet and dedicated coil, multiplanar, multiecho imaging of the cervical spine was performed before and after intravenous administration of 7 of Gadavist. FINDINGS: Alignment of the cervical spine is anatomic. Vertebral body heights are maintained. There is no suspicious marrow replacement. There is no intracanalicular mass or fluid collection. Paravertebral soft tissues are unremarkable. The MRI of the brain will be reported separately. There is a hemangioma within the T1 vertebral body. There are multiple foci of increased T2 signal within the cervical cord, including a 1.4 cm lesion at the C5 level. There are additional lesions at C2, C3 and C6-C7 levels. There is no cord enhancement to suggest active demyelination. C2-C3: The central canal and neural foramen are patent. C3-C4: The central canal and neural foramen are patent. C4-C5: The central canal is patent. There is mild narrowing of both neural foramen. C5-C6: Central canal is patent. There is minimal neural foraminal narrowing bilaterally. C6-C7: The central canal is patent. There is mild narrowing of the right neural foramen. C7-T1: Central canal and neural foramen are patent. IMPRESSION: 1. Multiple foci of cervical cord signal abnormality consistent with demyelination given the clinical history of multiple sclerosis. No evidence for active demyelination by MRI. 2. Mild multilevel degenerative changes of the cervical spine. Electronically signed by: Horacio Angela M.D. 11/06/2016 2:32 PM Dictated Date/Time: 11/06/2016 2:23 PM
== END | disposition home or self-care (01) ==
LOC: C.MRI 11:27
PROVIDERS: ATTEND Psychiatry & Neurology Neurology
DX: G35 Multiple sclerosis (principal); N20.0 Calculus of kidney; K80.20 Calculus of gallbladder without cholecystitis without obstruction

== ENCOUNTER → 2017-02-04 | Outpatient (CLI) | payer BC ==
[~2017-02-04] MED LIST changes: -GADAVIST IV PRN
[2017-02-04 13:30] LABS: BASO % 1.1 %; BASO ABS # 0.08 K/uL (0-0.2); COMPLETE YES; EOS % 2.8 %; HEMATOCRIT 44.3 % (42-52); IG% 0.3 %; LYMPH % 22.9 %; MEAN CELL VOLUME 91.9 fL (80-100); MEAN CORPUSCULAR HEMOGLOBIN 31.3 pg (25-34); MEAN CORPUSCULAR HGB CONC 34.1 g/dl (32-36); MEAN PLATELET VOLUME 10.6 fL (7.4-10.4); MONO % 8.9 %; PLATELET COUNT 299 K/uL (130-400); RED BLOOD COUNT 4.82 M/uL (4.7-6.1); WHITE BLOOD COUNT 7.42 K/uL (4.8-10.8)
[2017-02-04 13:55] LABS: ALT/SGPT 21 U/L (12-78); BLOOD UREA NITROGEN 15 mg/dl (7-18); BUN/CREATININE RATIO 21.3 (10-20); CALCIUM 8.9 mg/dl (8.5-10.1); CARBON DIOXIDE 30 mmol/L (21-32); CHLORIDE 104 mmol/L (98-107); CREATININE 0.72 mg/dl (0.60-1.40); GLUCOSE 91 mg/dl (70-99); POTASSIUM 4.2 mmol/L (3.5-5.1); SODIUM 141 mmol/L (136-145)
[2017-02-04 14:00] LABS: ALB/GLOB RATIO 0.8 (0.9-2); ALKALINE PHOSPHATASE 97 U/L (45-117); AST/SGOT 10 U/L (15-37)
== END | disposition home or self-care (01) ==
LOC: C.LABBC 11:07
PROVIDERS: ATTEND Urology
DX: G35 Multiple sclerosis (principal); E55.9 Vitamin D deficiency, unspecified; R32 Unspecified urinary incontinence; R33.9 Retention of urine, unspecified

== ENCOUNTER → 2017-04-21 | Outpatient (CLI) | payer BC ==
[~2017-04-21] MED LIST changes: +AMX500 PO; -DIME1CAP2 PO; -ONDA4TAB10 SL
--- NOTE | 2017-04-21 15:05 | DIAGNOSTIC IMAGING REPORT ---
LEFT FEMUR 3 VIEWS CLINICAL HISTORY: Left leg pain. FINDINGS: AP, frog-leg, and crosstable lateral views of the left femur are obtained. No prior studies are available for comparison at the time of dictation. The skeletal structures are osteopenic. There is no radiographic evidence of left femoral fracture. The visualized left hemipelvis appears intact. Moderate arthritic change is present in the left hip. The left knee joint appears preserved. The overlying soft tissues are within normal limits. Atherosclerotic calcification is noted in the femoral and popliteal arteries. An electronic lead is noted in the left hemipelvis. IMPRESSION: Osteopenia and arthritic change as above. No acute left femoral abnormality is identified. Electronically signed by: Aldair Yeager M.D. 04/21/2017 3:04 PM Dictated Date/Time: 04/21/2017 3:02 PM
== END | disposition home or self-care (01) ==
LOC: C.RADBC 13:55
PROVIDERS: ATTEND Physician Assistant
DX: M79.605 Pain in left leg (principal); M85.852 Other specified disorders of bone density and structure, left thigh

== ENCOUNTER 2017-05-14 10:59 | Observation (INO) | payer BC ==
[~2017-05-14] VITALS: Ht 182.9 cm; Wt 75.0 kg
[~2017-05-14 10:59] MED LIST changes: -AMX500 PO
[2017-05-14] MEDS ORDERED: SODIUM CHLORIDE 0.9% 1000ML 1,000 ML IV STA (12:00)
--- NOTE | 2017-05-14 12:27 | EMERGENCY ROOM VISIT NOTE ---
History First contact with patient: 11:46 Chief Complaint: DEHYDRATION Stated Complaint: WEAKNESS,PRESSURE SORE,CANT DRINK History of Present Illness The patient is a 66 year old male who presents to the Emergency Room with complaints of weakness, pressure sores, and possible urinary tract infection. The patient has a history of multiple sclerosis and is wheelchair-bound. He has been having increased pain from multiple pressure sores which are on his bottom for the past several days. Last weekend, the patient had approximately 8 episodes of diarrhea in 24 hours. He has been having difficulty keeping fluids down and this morning he was feeling very weak and dehydrated. He states he was having difficulty positioning himself in bed last night, and could not drink any water. He states this morning, he was feeling slightly better, however his symptoms are ongoing and he is concerned because the last time he had similar symptoms, he had a urinary tract infection and needed admitted to the hospital. Patient denies any abdominal pain, nausea, vomiting, fever, chills, chest pain, dyspnea, or other associated symptoms. He does have an indwelling urinary catheter, and his states there has been decreased urine output and the urine does appear very dark in color. The patient's states the patient has had a mild cough, worse after eating, however has been coughing since he has been here in the ED. She is concerned for pneumonia and would like this evaluated as well. The patient is scheduled to have a speech therapist come address the coughing after eating this week. Review of Systems A complete 10 point review of systems was reviewed with the patient with pertinent positives and negatives as per history of present illness. All else were negative. Past Medical/Surgical History Medical Problems: (1) MS (multiple sclerosis) (2) UTI,MULTIPLE SCLEROSIS,VOMITING Family History Cancer Lung disease Social History Smoking Status: Never Smoker Drug Use: none Marital Status: Occupation Status: retired, disabled Current/Historical Medications Scheduled Ascorbic Acid (Ascorbic Acid), 1,000 MG PO QAM B-Complex W/ Folic Acid (Super B Complex Maxi), 1 TAB PO QAM Calcium/Vitamin D (Os-Wild 500 Plus D), 1 TAB PO Q2D Cholecalciferol (Vitamin D3), 5,000 UNITS PO QAM Docusate Sodium (Stool Softener), 200 MG PO BID Fish Oil (Ambia-3), 1 CAP PO BID Misoprostol (Cytotec), 100 MCG PO BID Naproxen (Aleve), 220 MG PO UD Ocrelizumab (Ocrevus), 1 DOSE IV Q6MO Saccharomyces Boulardii (Probiotic), 1 CAP PO QAM Sertraline (Zoloft), 100 MG PO QAM Sodium Phosphates (Fleet Enema Six Pack), 1 RE THREE TIMES WEEKLY [Baclofen Pump], SQ CONTINOUS Scheduled PRN Acetaminophen (Tylenol), 500 MG PO Q4H PRN for Pain or Fever Baclofen (Lioresal), 0.5 TAB PO DAILY PRN for Muscle Spasms Physical Exam Vital Signs Date Time Temp Pulse Resp B/P (MAP) Pulse Ox O2 Delivery O2 Flow Rate FiO2 05/14/17 15:54 Room Air 05/14/17 15:43 98 16 127/76 96 Room Air 05/14/17 13:23 73 20 133/80 96 05/14/17 11:12 36.8 112 20 98/66 96 Room Air Physical Exam VITALS: Vitals are noted on the nurse's note and reviewed by myself. Vital signs stable. GENERAL: This is a 66-year-old white male, in no acute distress, nondiaphoretic , well-developed well-nourished. SKIN: 2 small pressure sores on the left buttock. These are approximately 1-2 cm in diameter. There are no obvious ulcerations or drainage from the source at this time. There is cream overlying the sores. The skin was otherwise without rashes, erythema, edema, or bruising. There is no tenting of the skin. Capillary reflex less than 2 seconds. HEAD: Normocephalic atraumatic. EARS: External auditory canals clear, tympanic membranes pearly cardona without erythema or effusion bilaterally. EYES: Pupils equal round and reactive to light and accommodation. Conjunctivae without injection, sclerae without icterus. Extraocular movements intact. NOSE: Patent, turbinates without inflammation or discharge. No sinus tenderness. MOUTH: Mucous membranes moist. Tonsils are not enlarged. Pharynx without erythema or exudate. Uvula midline. Airway patent. Tongue does not deviate. NECK: Supple without nuchal rigidity. No lymphadenopathy. No thyromegaly. Cervical spine is nontender. No JVD. HEART: Regular rate and rhythm without murmurs gallops or rubs. LUNGS: Clear to auscultation bilaterally without wheezes, rales or rhonchi. No dullness to percussion. No retractions or accessory muscle use. ABDOMEN: Positive bowel sounds x 4. Normal tympanic percussion. Soft, nontender, without masses or organomegaly. Ignacio sign negative. No guarding or rebound tenderness. MUSCULOSKELETAL: No muscle atrophy, erythema, or edema noted. Full range of motion without joint tenderness in all extremities. No tenderness to palpation. The patient is non-ambulatory. Strength decreased throughout due to MS. NEURO: Patient was alert and oriented to person place and time. Normal sensation to light and sharp touch. Deep tendon reflexes 2+ throughout. No focal neurological deficits. Medical Decision & Procedures ER Provider Diagnostic Interpretation: CHEST ONE VIEW PORTABLE HISTORY: 66 years-old Male cough acute cough COMPARISON: Chest radiograph 02/23/2017 TECHNIQUE: Portable AP view of the chest FINDINGS: Cardiomediastinal and hilar silhouettes are within normal limits. Atherosclerosis of the aorta. There is no pneumothorax, pleural effusion, focal airspace consolidation or overt pulmonary edema. Degenerative changes are seen within the shoulders and spine. IMPRESSION: No acute process. The above report was generated using voice recognition software. It may contain grammatical, syntax or spelling errors. Electronically signed by: Durga Case M.D. 05/14/2017 1:56 PM Dictated Date/Time: 05/14/2017 1:54 PM Laboratory Results 05/14/17 12:20 Red Blood Count 5.01, Mean Corpuscular Volume 92.4, Mean Corpuscular Hemoglobin 32.3, Mean Corpuscular Hemoglobin Concent 35.0, Mean Platelet Volume 10.9, Neutrophils (%) (Auto) 86.8, Lymphocytes (%) (Auto) 4.8, Monocytes (%) (Auto) 7.5, Eosinophils (%) (Auto) 0.4, Basophils (%) (Auto) 0.2, Neutrophils # (Auto) 12.79, Lymphocytes # (Auto) 0.70, Monocytes # (Auto) 1.10, Eosinophils # (Auto) 0.06, Basophils # (Auto) 0.03 05/14/17 12:20 Test 05/14/17 12:20 05/14/17 13:00 White Blood Count 14.73 K/uL (4.8-10.8) Red Blood Count 5.01 M/uL (4.7-6.1) Hemoglobin 16.2 g/dL (14.0-18.0) Hematocrit 46.3 % (42-52) Mean Corpuscular Volume 92.4 fL (80-100) Mean Corpuscular Hemoglobin 32.3 pg (25-34) Mean Corpuscular Hemoglobin Concent 35.0 g/dl (32-36) Platelet Count 272 K/uL (130-400) Mean Platelet Volume 10.9 fL (7.4-10.4) Neutrophils (%) (Auto) 86.8 % Lymphocytes (%) (Auto) 4.8 % Monocytes (%) (Auto) 7.5 % Eosinophils (%) (Auto) 0.4 % Basophils (%) (Auto) 0.2 % Neutrophils # (Auto) 12.79 K/uL (1.4-6.5) Lymphocytes # (Auto) 0.70 K/uL (1.2-3.4) Monocytes # (Auto) 1.10 K/uL (0.11-0.59) Eosinophils # (Auto) 0.06 K/uL (0-0.5) Basophils # (Auto) 0.03 K/uL (0-0.2) RDW Standard Deviation 47.7 fL (36.4-46.3) RDW Coefficient of Variation 14.3 % (11.5-14.5) Immature Granulocyte % (Auto) 0.3 % Immature Granulocyte # (Auto) 0.05 K/uL (0.00-0.02) Prothrombin Time 9.9 SECONDS (9.0-12.0) Prothromb Time International Ratio 0.9 (0.9-1.1) Activated Partial Thromboplast Time 28.6 SECONDS (21.0-31.0) Partial Thromboplastin Ratio 1.1 Anion Gap 7.0 mmol/L (3-11) Est Creatinine Clear Calc Drug Dose 94.2 ml/min Estimated GFR () 107.2 Estimated GFR (Non- 92.5 BUN/Creatinine Ratio 18.6 (10-20) Calcium Level 9.5 mg/dl (8.5-10.1) Total Bilirubin 0.6 mg/dl (0.2-1) Aspartate Amino Transf (AST/SGOT) 9 U/L (15-37) Alanine Aminotransferase (ALT/SGPT) 22 U/L (12-78) Alkaline Phosphatase 94 U/L (45-117) Total Protein 7.9 gm/dl (6.4-8.2) Albumin 3.5 gm/dl (3.4-5.0) Globulin 4.4 gm/dl (2.5-4.0) Albumin/Globulin Ratio 0.8 (0.9-2) Urine Color YELLOW Urine Appearance TURBID (CLEAR) Urine pH 6.5 (4.5-7.5) Urine Specific Hinckley 1.022 (1.000-1.030) Urine Protein 1+ (NEG) Urine Glucose (UA) NEG (NEG) Urine Ketones NEG (NEG) Urine Occult Blood 2+ (NEG) Urine Nitrite POS (NEG) Urine Bilirubin NEG (NEG) Urine Urobilinogen NEG (NEG) Urine Leukocyte Esterase LARGE (NEG) Urine WBC (Auto) >30 /hpf (0-5) Urine RBC (Auto) 5-10 /hpf (0-4) Urine Hyaline Casts (Auto) 1-5 /lpf (0-5) Urine Epithelial Cells (Auto) >30 /lpf (0-5) Urine Bacteria (Auto) 4+ (NEG) Urine Crystals CALCIUM OXALATE (NONE Urine Pathogenic Casts /lpf (0) Urine Yeast (Auto) (NONE PRSENT) Medications Administered Medications (Trade) Dose Ordered Sig/Yovana Route Start Time Stop Time Status Last Admin Dose Admin Sodium Chloride 1,000 ml @ 999 mls/hr Q1H1M STAT IV 05/14/17 12:00 05/14/17 13:01 DC 05/14/17 12:48 999 MLS/HR Ciprofloxacin/ Dextrose (Cipro / D5W) 400 mg NOW STAT IV 05/14/17 15:08 05/14/17 15:09 DC 05/14/17 16:26 400 MG Ampicillin Sodium 2000 mg/Sodium Chloride 100 ml @ 200 mls/hr NOW STAT IV 05/14/17 15:08 05/14/17 15:37 DC 05/14/17 15:08 200 MLS/HR ED Course The patient was seen and evaluated as above. The patient was moved from the wheelchair to the bed via nursing staff. IV access obtained, labs drawn. Urine was obtained from the catheter. Chest x-ray performed and reviewed by myself and radiologist as above. I reviewed the results of testing, and discussed them with Dr. Crar. I discussed the case with the [facility] hospitalist. The patient will be evaluated for admission. Please see hospitalist dictation regarding further management and care. The patient was started on IV Cipro and IV Ampicillin as requested by the hospitalist. Medical Decision This is a 66-year-old male patient with a past medical history of MS who is wheelchair-bound with an indwelling Cochran catheter. Patient presents today due to weakness and dark urine with decreased ability to tolerate p.o. fluids or foods. The patient's workup here in the emergency department did show signs of infection. His white count was over 14,000. His urinalysis did show positive nitrates, blood, and leukocyte esterase. He does have calcium oxalate crystals and 4+ bacteria. The patient's electrolytes, renal, and hepatic function were overall normal. Chest x-ray did not show any signs of pneumonia or acute abnormalities. With the patient's symptoms and history, he will be evaluated by the hospitalist for possible admission. Etiologies such as renal colic, appendicitis, diverticulitis, mesenteric ischemia, aortic pathology, infections, inflammatory bowel disease, PUD, biliary pathology, UTI, pneumonia, bronchitis, influenza, dehydration, as well as others were entertained. Medication Reconcilliation Current Medication List: was personally reviewed by me Blood Pressure Screening Patient's blood pressure: Normal blood pressure Impression Primary Impression: UTI (urinary tract infection) Departure Information Dispostion Being Evaluated By Hospitalist Condition GOOD Referrals Gato Robbins M.D. (PCP) Patient Instructions My [facility] Health Problem Qualifiers Primary Impression: UTI (urinary tract infection) Urinary tract infection type: acute cystitis Hematuria presence: with hematuria Qualified Codes: N30.01 - Acute cystitis with hematuria
[2017-05-14] MEDS ORDERED: OCRE300I IV (13:18)
[2017-05-14] MEDS ORDERED: SERT-234 PO (13:24)
[2017-05-14] MEDS ORDERED: NAPR1TAB9 PO (13:24)
[2017-05-14] MEDS ORDERED: ACET-1256 PO (13:29)
--- NOTE | 2017-05-14 13:57 | DIAGNOSTIC IMAGING REPORT ---
CHEST ONE VIEW PORTABLE HISTORY: 66 years-old Male cough acute cough COMPARISON: Chest radiograph 02/23/2017 TECHNIQUE: Portable AP view of the chest FINDINGS: Cardiomediastinal and hilar silhouettes are within normal limits. Atherosclerosis of the aorta. There is no pneumothorax, pleural effusion, focal airspace consolidation or overt pulmonary edema. Degenerative changes are seen within the shoulders and spine. IMPRESSION: No acute process. The above report was generated using voice recognition software. It may contain grammatical, syntax or spelling errors. Electronically signed by: Durga Case M.D. 05/14/2017 1:56 PM Dictated Date/Time: 05/14/2017 1:54 PM
--- NOTE | 2017-05-14 14:03 | EMERGENCY ROOM VISIT NOTE ---
ED Visit Note First contact with patient: 14:02 I did evaluate and examine this patient myself. I did guide management for the patient. I agree with the PA's assessment as discussed. Please see the PAs dictation for further details. I did independently review the x-rays and blood work. He does have a UTI. He was given IV antibiotics and the hospitalist was consulted.
[2017-05-14 14:08] LABS: BASO % 0.2 %; BASO ABS # 0.03 K/uL (0-0.2); EOS % 0.4 %; EOS ABS # 0.06 K/uL (0-0.5); HEMATOCRIT 46.3 % (42-52); HEMOGLOBIN 16.2 g/dL (14.0-18.0); IG# 0.05 K/uL (0.00-0.02); LYMPH % 4.8 %; MEAN CELL VOLUME 92.4 fL (80-100); MEAN CORPUSCULAR HEMOGLOBIN 32.3 pg (25-34); MEAN PLATELET VOLUME 10.9 fL (7.4-10.4); MONO % 7.5 %; NEUT % 86.8 %; NEUT ABS # 12.79 K/uL (1.4-6.5); PLATELET COUNT 272 K/uL (130-400); RED CELL DISTRIBUTION WIDTH CV 14.3 % (11.5-14.5); RED CELL DISTRIBUTION WIDTH SD 47.7 fL (36.4-46.3); WHITE BLOOD COUNT 14.73 K/uL (4.8-10.8)
[2017-05-14 14:17] LABS: ALBUMIN 3.5 gm/dl (3.4-5.0); CALCIUM 9.5 mg/dl (8.5-10.1); CREATININE 0.84 mg/dl (0.60-1.40)
[2017-05-14 14:20] LABS: TOTAL PROTEIN 7.9 gm/dl (6.4-8.2)
[2017-05-14] MEDS ORDERED: CIPROFLOXACIN 400MG / 200ML D5W IV STA (15:08)
[2017-05-14] MEDS ORDERED: AMPICILLIN IV 2,000 MG in SODIUM CHLOR 0.9% AD-VAN 100ML 100 ML IV STA (15:08)
[2017-05-14 15:54] VITALS: Ht 182.9 cm; Wt 75.0 kg
[2017-05-14] MEDS ORDERED: ALUMINUM/MAGNESIUM/SIMETH (MAALOX MAX) 30 ML UDC PO PRN (16:30)
[2017-05-14] MEDS ORDERED: ACETAMINOPHEN 325 MG TAB PO PRN (16:30)
[2017-05-14] MEDS ORDERED: MAGNESIUM HYDROXIDE SUSP 30 ML UDC PO PRN (16:30)
[2017-05-14] MEDS ORDERED: ONDANSETRON INJ 2 MG/ML 2 ML VIAL IV PRN (16:30)
--- NOTE | 2017-05-14 16:55 | History and Physical ---
History & Physical Date & Time of Service: May 14, 2017 at 16:41 Chief Complaint: Weakness,Pressure Sore,Cant Drink Primary Care Physician: Gato Robbins M.D. History of Present Illness Source: patient, clinic records, hospital records This is a 66 y/o male with a history of MS, cognitive disorder, depression, neurogenic bladder and neurogenic bowel who presented to the ED on 05/14 with weakness. The patient has an indwelling catheter with history of frequent urinary tract infections. The patient states his catheter has not been changed in about a month. The patient reportedly has had increased weakness recently and dehydration. He complains of a cough that is sometimes productive and sometimes occurs after eating. The patient is wheelchair bound due to his MS and has developed pressure ulcers, although he currently denies any pain from them during my exam. Currently, the patient denies any complaints to me besides his cough. The patient denies fevers, chills, sweats, chest pain, palpitations, claudication, wheezing, shortness of breath, nausea, vomiting, abdominal pain, dysuria, hematuria, urinary retention, paralysis, weakness, numbness and tingling. Past Medical/Surgical History Medical Problems: (1) MS (multiple sclerosis) Status: Chronic Cognitive disorder Depression Neurogenic bladder and bowel Family History Cancer (lung, pancreatic) Lung disease Social History Smoking Status: Never Smoker Smokeless Tobacco Use: No Alcohol Use: none Drug Use: none Marital Status: Housing status: lives with significant other (has home health) Occupational Status: retired, disabled Immunizations History of Influenza Vaccine: Yes Influenza Vaccine Date: May 02, 2010 History of Tetanus Vaccine?: Unknown History of Pneumococcal: No History of Hepatitis B Vaccine: Unknown Multi-Drug Resistant Organisms History of MDRO: No Allergies Coded Allergies: No Known Allergies (Verified , 05/14/17) Home Medications Scheduled Ascorbic Acid (Ascorbic Acid), 1,000 MG PO QAM B-Complex W/ Folic Acid (Super B Complex Maxi), 1 TAB PO QAM Calcium/Vitamin D (Os-Wild 500 Plus D), 1 TAB PO Q2D Cholecalciferol (Vitamin D3), 5,000 UNITS PO QAM Docusate Sodium (Stool Softener), 200 MG PO BID Fish Oil ([place]-3), 1 CAP PO BID Misoprostol (Cytotec), 100 MCG PO BID Naproxen (Aleve), 220 MG PO UD Ocrelizumab (Ocrevus), 1 DOSE IV Q6MO Saccharomyces Boulardii (Probiotic), 1 CAP PO QAM Sertraline (Zoloft), 100 MG PO QAM Sodium Phosphates (Fleet Enema Six Pack), 1 RE THREE TIMES WEEKLY [Baclofen Pump], SQ CONTINOUS Scheduled PRN Acetaminophen (Tylenol), 500 MG PO Q4H PRN for Pain or Fever Baclofen (Lioresal), 0.5 TAB PO DAILY PRN for Muscle Spasms Review of Systems Constitutional: +Weakness. No fever, No chills, No sweats Eyes: No worsening of vision, No eye pain, No diplopia ENT: No hearing loss, No nasal symptoms, No trouble swallowing Respiratory: +Cough at times productive. No wheezing, No shortness of breath Cardiovascular: No chest pain, No claudication, No palpitations Abdomen: No pain, No nausea, No vomiting Musculoskeletal: No joint pain, No muscle pain, No swelling Genitourinary - Male: +Chronic Salazar. No dysuria, No urinary retention, No hematuria Neurologic: No paralysis, No weakness, No numbness/tingling Integumentary: +Pressure ulcers. No rash, No itch, No color change Physical Exam Vital Signs Date Time Temp Pulse Resp B/P (MAP) Pulse Ox O2 Delivery O2 Flow Rate FiO2 05/14/17 15:54 Room Air 05/14/17 15:43 98 16 127/76 96 Room Air 05/14/17 13:23 73 20 133/80 96 05/14/17 11:12 36.8 112 20 98/66 96 Room Air General appearance: Well-developed, well-nourished, no apparent distress Head: Normocephalic, atraumatic Eyes: Normal inspection, PERRL, EOMI ENT: Normal ENT inspection, hearing grossly normal, pharynx normal Neck: Supple, no JVD, trachea midline Respiratory/Chest: Lungs clear to auscultation, normal breath sounds, no respiratory distress Cardiovascular: Regular rate & rhythm, no gallop, no murmur Abdomen/GI: +Palpable baclofen pump. Normal bowel sounds, non-tender, soft Extremities/Musculoskeletal: Normal inspection, no calf tenderness, no pedal edema Neurological/Psych: Alert, normal mood/affect, oriented x 3 Skin: +Small pressure ulcers buttock. Normal color, warm/dry, no rash Diagnostics Laboratory Results Results Past 24 Hours Test 05/14/17 12:20 05/14/17 13:00 Range/Units White Blood Count 14.73 4.8-10.8 K/uL Red Blood Count 5.01 4.7-6.1 M/uL Hemoglobin 16.2 14.0-18.0 g/dL Hematocrit 46.3 42-52 % Mean Corpuscular Volume 92.4 80-100 fL Mean Corpuscular Hemoglobin 32.3 25-34 pg Mean Corpuscular Hemoglobin Concent 35.0 32-36 g/dl Platelet Count 272 130-400 K/uL Mean Platelet Volume 10.9 7.4-10.4 fL Neutrophils (%) (Auto) 86.8 % Lymphocytes (%) (Auto) 4.8 % Monocytes (%) (Auto) 7.5 % Eosinophils (%) (Auto) 0.4 % Basophils (%) (Auto) 0.2 % Neutrophils # (Auto) 12.79 1.4-6.5 K/uL Lymphocytes # (Auto) 0.70 1.2-3.4 K/uL Monocytes # (Auto) 1.10 0.11-0.59 K/uL Eosinophils # (Auto) 0.06 0-0.5 K/uL Basophils # (Auto) 0.03 0-0.2 K/uL RDW Standard Deviation 47.7 36.4-46.3 fL RDW Coefficient of Variation 14.3 11.5-14.5 % Immature Granulocyte % (Auto) 0.3 % Immature Granulocyte # (Auto) 0.05 0.00-0.02 K/uL Sodium Level 138 136-145 mmol/L Potassium Level 4.0 3.5-5.1 mmol/L Chloride Level 102 98-107 mmol/L Carbon Dioxide Level 30 21-32 mmol/L Anion Gap 7.0 3-11 mmol/L Blood Urea Nitrogen 16 7-18 mg/dl Creatinine 0.84 0.60-1.40 mg/dl Est Creatinine Clear Calc Drug Dose 94.2 ml/min Estimated GFR () 107.2 Estimated GFR (Non- 92.5 BUN/Creatinine Ratio 18.6 10-20 Random Glucose 108 70-99 mg/dl Calcium Level 9.5 8.5-10.1 mg/dl Total Bilirubin 0.6 0.2-1 mg/dl Aspartate Amino Transf (AST/SGOT) 9 15-37 U/L Alanine Aminotransferase (ALT/SGPT) 22 12-78 U/L Alkaline Phosphatase 94 45-117 U/L Total Protein 7.9 6.4-8.2 gm/dl Albumin 3.5 3.4-5.0 gm/dl Globulin 4.4 2.5-4.0 gm/dl Albumin/Globulin Ratio 0.8 0.9-2 Urine Color YELLOW Urine Appearance TURBID CLEAR Urine pH 6.5 4.5-7.5 Urine Specific [place] 1.022 1.000-1.030 Urine Protein 1+ NEG Urine Glucose (UA) NEG NEG Urine Ketones NEG NEG Urine Occult Blood 2+ NEG Urine Nitrite POS NEG Urine Bilirubin NEG NEG Urine Urobilinogen NEG NEG Urine Leukocyte Esterase LARGE NEG Urine WBC (Auto) >30 0-5 /hpf Urine RBC (Auto) 5-10 0-4 /hpf Urine Hyaline Casts (Auto) 1-5 0-5 /lpf Urine Epithelial Cells (Auto) >30 0-5 /lpf Urine Bacteria (Auto) 4+ NEG Urine Crystals CALCIUM OXALATE NONE PRSENT Urine Pathogenic Casts 0 /lpf Urine Yeast (Auto) NONE PRSENT Microbiology Results 05/14/17 Urine Culture, Received Pending Diagnostic Radiology Reviewed the following studies and agree with interpretation as follows: CHEST ONE VIEW PORTABLE HISTORY: 66 years-old Male cough acute cough COMPARISON: Chest radiograph 02/23/2017 TECHNIQUE: Portable AP view of the chest FINDINGS: Cardiomediastinal and hilar silhouettes are within normal limits. Atherosclerosis of the aorta. There is no pneumothorax, pleural effusion, focal airspace consolidation or overt pulmonary edema. Degenerative changes are seen within the shoulders and spine. IMPRESSION: No acute process. Impression Assessment and Plan 66 y/o male with a history of MS, cognitive disorder, depression, neurogenic bladder and neurogenic bowel who presented to the ED on 05/14 with weakness. Pt tachycardic with HR 112 and mildly hypotensive with BP 98/66 on arrival. HR and BP now improved after receiving 1L NSS bolus in ED. WBC 14.73. UA positive with 4+ bacteria. Mild sepsis secondary to urinary tract infection, chronic Salazar catheter, neurogenic bladder--tachycardia and hypotension now resolved -Admit to med/surg as vitals now stable -Urine culture pending. H/o enterococcus and pseudomonas -Change Salazar -Continue Cipro 400 mg IV q12h and ampicillin 2 gm IV q6h for now pending C&S -Continue probiotic -Received 1L NSS, will hold off on further IVF for now MS--stable -Continue baclofen pump, Cytotec 100 mcg PO BID -Possible aspiration, will consult speech therapy. Aspiration precautions Pressure ulcer -Consult wound care nurse Depression -Continue Zoloft 100 mg PO qd DVT prophylaxis -Enoxaparin 40 mg SC q24h -PAUL hose and SCDs Code Status -Level I, FULL RESUSCITATION STATUS I personally interviewed and examined the patient. I agree with history of present illness and physical exam mentioned above, I also performed my own history taking and examination. Past medical history and review of system has been obtained by myself I reviewed all pertinent labs and studies Reviewed current medications I discussed and formulated of the assessment and plan mentioned above. Please refer to the Summary mentioned below. 70 years old man w MS, functional quadriplegia and indwelling salazar cath p/w leukocytosis and change in urine color. last admission he had a uti , cx grew PCN sen enterococcus and pseudomonas (2 species ) will empirically treat with PCN/cipro change salazar in few days into Abx General Appearance: not in acute distress Eyes: normal Sclerae, extraocular muscle intact ENT: hearing grossly normal Neck: supple Respiratory/Chest: normal air entry bilateral ,no respiratory distress, no accessory muscle use Cardiovascular: regular rate, rhythm, no murmur Abdomen: non tender, soft, no masses Extremities: no edema Neurologic/Psychiatric: Awake alert oriented times place, cranial nerves II-12 appear to be intact, muscle wasting from disuse atrophy Skin: normal color, warm/dry, no rash Jay[facility] Hoskins [facility], [facility] Level of Care Med/Surg Advanced Directives Existing Living Will: Yes Existing Power of Desk Pen Set Assembler: Yes Resuscitation Status FULL RESUSCITATION VTE Prophylaxis VTE Risk Assessment Done? Y/N: Yes Risk Level: Moderate Given or contraindicated: Enoxaparin (Lovenox)SQ, T.E.D. Stockings, SCD's
[2017-05-14] MEDS ORDERED: POLYETHYLENE (MIRALAX) 17 GM PACK PO PRN (17:00)
[2017-05-14 17:27] LABS: INR 0.9 (0.9-1.1); PTT PATIENT 28.6 SECONDS (21.0-31.0)
[2017-05-14 18:30] VITALS: BP 124/76; PULSE 78; TEMP 37.1; O2SAT 92
[2017-05-14] MEDS ORDERED: IV FLUIDS COMPLETED PRN (19:00)
[2017-05-14] MEDS: ENOXAPARIN 40 MG/0.4 ML SYR SQ SCH (20:29)
[2017-05-14] MEDS: DOCUSATE SODIUM 100 MG CAP PO SCH (20:30)
[2017-05-14] MEDS: OMEGA-3 (PURIFIED FISH OIL) 1 GM CAP PO SCH (20:30)
[2017-05-14] MEDS: MISOPROSTOL 200 MCG TAB PO SCH (20:31)
[2017-05-14] MEDS: AMPICILLIN IV 2,000 MG in SODIUM CHLOR 0.9% AD-VAN 100ML 100 ML IV SCH (21:06)
[2017-05-14 23:07] VITALS: BP 105/63; PULSE 67; TEMP 37.3; O2SAT 95
[2017-05-15] MEDS: AMPICILLIN IV 2,000 MG in SODIUM CHLOR 0.9% AD-VAN 100ML 100 ML IV SCH ×4 (02:58→20:39)
[2017-05-15] MEDS: CIPROFLOXACIN / D5W 400 MG in PREMIXED IN D5W 200 ML IV SCH ×2 (04:58→16:02)
[2017-05-15 05:48] LABS: HEMATOCRIT 41.9 % (42-52); HEMOGLOBIN 14.4 g/dL (14.0-18.0); MEAN CELL VOLUME 91.3 fL (80-100); MEAN CORPUSCULAR HEMOGLOBIN 31.4 pg (25-34); MEAN CORPUSCULAR HGB CONC 34.4 g/dl (32-36); MEAN PLATELET VOLUME 10.4 fL (7.4-10.4); PLATELET COUNT 235 K/uL (130-400); RED CELL DISTRIBUTION WIDTH CV 14.2 % (11.5-14.5); RED CELL DISTRIBUTION WIDTH SD 47.5 fL (36.4-46.3)
[2017-05-15 06:16] LABS: CALCIUM 8.5 mg/dl (8.5-10.1); CREATININE 0.78 mg/dl (0.60-1.40); POTASSIUM 3.9 mmol/L (3.5-5.1)
[2017-05-15] MEDS: MISOPROSTOL 200 MCG TAB PO SCH (07:49)
[2017-05-15] MEDS: CHOLECALCIFEROL 1000 INTER.UNIT TAB PO SCH (07:49)
[2017-05-15] MEDS: SACCHAROMYCES BOUL (FLORASTOR) 250 MG CAP PO SCH (07:49)
[2017-05-15] MEDS: OMEGA-3 (PURIFIED FISH OIL) 1 GM CAP PO SCH ×2 (07:49→19:55)
[2017-05-15] MEDS: DOCUSATE SODIUM 100 MG CAP PO SCH ×2 (07:49→19:54)
[2017-05-15] MEDS: SOD PHOSPHATE/SOD BIPHOSPHATE ENEMA 132 ML BTL PR SCH (07:55)
[2017-05-15 08:14] VITALS: BP 112/72; PULSE 58; TEMP 37; O2SAT 94
[2017-05-15] MEDS: SERTRALINE HCL 100 MG TAB PO SCH (08:16)
[2017-05-15 11:59] VITALS: O2SAT 94
[2017-05-15 15:00] VITALS: BP 125/72; PULSE 63; TEMP 36.9; O2SAT 97
[2017-05-15] MEDS: MISOPROSTOL 100 MCG TAB PO SCH (19:56)
--- NOTE | 2017-05-15 19:58 | Family Medicine Progress Note ---
Progress Note Date of Service May 15, 2017. Subjective Pt evaluation today including: conversation w/ patient, physical exam, chart review, lab review, review of studies Pain: No pain reported this morning Voiding: salazar catheter in place Patient is resting comfortably in bed this morning with no acute complaints. The patient states that he was unable to eat breakfast due to nausea but that has since resolved and refuses any anti-emetics at this time. Patient states that he is feeling more alert this morning and denies any acute confusion, fever , chills, shortness of breath, dysuria, back pain, or any other acute complaints. Constitutional: + fatigue, No fever, No chills, No sweats Respiratory: No cough, No wheezing, No shortness of breath Cardiovascular: No chest pain, No palpitations Breast: No change in shape, No nipple discharge, No breast pain, No problem reported Abdomen: No pain, No nausea, No vomiting, No diarrhea Medications Current Inpatient Medications Medications (Trade) Dose Ordered Sig/Yovana Route Start Time Stop Time Status Last Admin Dose Admin Enoxaparin Sodium (Lovenox Inj) 40 mg Q24H SQ 05/14/17 21:00 06/13/17 20:59 05/14/17 20:29 40 MG Acetaminophen (Tylenol Tab) 650 mg Q4H PRN PO 05/14/17 16:30 06/13/17 16:29 Al Hydrox/Mg Hydrox/Simethicone (Maalox Max Susp) 15 ml Q4H PRN PO 05/14/17 16:30 06/13/17 16:29 Magnesium Hydroxide (Milk Of Magnesia Susp) 30 ml Q6H PRN PO 05/14/17 16:30 06/13/17 16:29 Polyethylene (Miralax Powder Packet) 17 gm DAILY PRN PO 05/14/17 17:00 06/13/17 16:59 Ondansetron HCl (Zofran Inj) 4 mg Q6H PRN IV 05/14/17 16:30 06/13/17 16:29 Ciprofloxacin/ Dextrose 400 mg/ Prmx 200 ml @ 100 mls/hr Q12@0500,1700 IV 05/15/17 05:00 05/24/17 06:59 05/15/17 16:02 100 MLS/HR Ampicillin Sodium 2000 mg/Sodium Chloride 100 ml @ 200 mls/hr Q6H IV 05/14/17 21:00 05/24/17 09:29 05/15/17 15:14 200 MLS/HR Calcium/Vitamin D (Caltrate Plus Tab) 1 tab Q2D@0900 PO 05/16/17 09:00 06/15/17 08:59 Cholecalciferol (Vitamin D Tab) 1,000 inter.unit QAM PO 05/15/17 08:00 06/14/17 08:59 05/15/17 07:49 1,000 INTER.UNIT Docusate Sodium (coLACE CAP) 200 mg BID PO 05/14/17 20:00 06/13/17 20:59 05/15/17 07:49 200 MG Fish Oil ([place]-3 (Purified Fish Oil) Cap) 1 gm BID PO 05/14/17 20:00 06/13/17 20:59 05/15/17 07:49 1 GM Saccharomyces Boulardii (Florastor Cap) 250 mg QAM PO 05/15/17 08:00 06/14/17 08:59 05/15/17 07:49 250 MG Sertraline HCl (Zoloft Tab) 100 mg QAM PO 05/15/17 08:00 06/14/17 08:59 05/15/17 08:16 100 MG Sodium Biphosphate/ Sodium Phosphate (Fleet Enema) 132 ml TuWeFr@0900 IA 05/15/17 09:00 06/14/17 08:59 Miscellaneous (Iv Fluids Completed) 1 ea PRN PRN N/A 05/14/17 19:00 05/14/18 18:59 Misoprostol (Cytotec Tab) 100 mcg BID PO 05/15/17 20:00 06/14/17 19:59 Objective Vital Signs Date Time Temp Pulse Resp B/P (MAP) Pulse Ox O2 Delivery O2 Flow Rate FiO2 05/15/17 18:06 Room Air 05/15/17 15:00 36.9 63 20 125/72 (89) 97 05/15/17 11:59 94 Room Air 05/15/17 09:10 Room Air 05/15/17 08:14 37.0 58 20 112/72 (85) 94 Room Air 05/15/17 00:30 Room Air 05/14/17 23:07 37.3 67 18 105/63 (77) 95 Room Air Physical Exam General Appearance: WD/WN, no apparent distress Eyes: normal inspection, sclerae normal Respiratory/Chest: chest non-tender, lungs clear, normal breath sounds Cardiovascular: regular rate, rhythm, no edema, no gallop Abdomen: normal bowel sounds, non tender, soft, + pertinent finding (Baclofen pump over lower abdomen) Neurologic/Psychiatric: alert, normal mood/affect, oriented x 3 Skin: + pertinent finding (7x6cm stage 3 ulcer over left buttox\) Laboratory Results Results Past 24 Hours Test 05/15/17 05:16 Range/Units White Blood Count 7.90 4.8-10.8 K/uL Red Blood Count 4.59 4.7-6.1 M/uL Hemoglobin 14.4 14.0-18.0 g/dL Hematocrit 41.9 42-52 % Mean Corpuscular Volume 91.3 80-100 fL Mean Corpuscular Hemoglobin 31.4 25-34 pg Mean Corpuscular Hemoglobin Concent 34.4 32-36 g/dl RDW Standard Deviation 47.5 36.4-46.3 fL RDW Coefficient of Variation 14.2 11.5-14.5 % Platelet Count 235 130-400 K/uL Mean Platelet Volume 10.4 7.4-10.4 fL Sodium Level 138 136-145 mmol/L Potassium Level 3.9 3.5-5.1 mmol/L Chloride Level 104 98-107 mmol/L Carbon Dioxide Level 27 21-32 mmol/L Anion Gap 7.0 3-11 mmol/L Blood Urea Nitrogen 16 7-18 mg/dl Creatinine 0.78 0.60-1.40 mg/dl Est Creatinine Clear Calc Drug Dose 101.5 ml/min Estimated GFR () 110.6 Estimated GFR (Non- 95.4 BUN/Creatinine Ratio 20.9 10-20 Random Glucose 91 70-99 mg/dl Calcium Level 8.5 8.5-10.1 mg/dl Assessment and Plan 66 y/o male with a history of MS and neurogenic bladder with chronic salazar catheter who presents with weakness secondary to UTI Sepsis 2/2 UTI - History of neurogenic bladder (Multiple Sclerosis) with chronic salazar - UA: 2+ Blood, 4+ bacteria, + Nit, Large Leuk Est - Salazar changed in the ED - Antibiotic Coverage with Ciprofloxacin and Ampicillin --> Previous UTI was penicillin sensitive enterococcus and pseudomonas - Urine culture pending - Med/Surg Multiple Sclerosis - Baclofen pump - Continue home Cytotec - Swallow evaluation ordered to work up possible aspiration - CXR- no acute process Stage 3 Pressure Ulcer Left Buttox - Wound Care following Depression - Continue home Zoloft DVT prophylaxis - Lovenox - SCDs Code Status - Full Resuscitation Resident Tracking Resident Involvement: Resident Care Provided Care Provided: Adult Hospital Medicine
[2017-05-15] MEDS: ENOXAPARIN 40 MG/0.4 ML SYR SQ SCH (20:40)
[2017-05-15 23:38] VITALS: BP 104/66; PULSE 61; TEMP 37; O2SAT 92
[2017-05-16] MEDS: AMPICILLIN IV 2,000 MG in SODIUM CHLOR 0.9% AD-VAN 100ML 100 ML IV SCH ×2 (03:19→08:39)
[2017-05-16] MEDS: CIPROFLOXACIN / D5W 400 MG in PREMIXED IN D5W 200 ML IV SCH (04:50)
[2017-05-16 06:14] LABS: HEMATOCRIT 41.5 % (42-52); HEMOGLOBIN 14.2 g/dL (14.0-18.0); MEAN CELL VOLUME 90.2 fL (80-100); MEAN CORPUSCULAR HEMOGLOBIN 30.9 pg (25-34); MEAN CORPUSCULAR HGB CONC 34.2 g/dl (32-36); MEAN PLATELET VOLUME 9.9 fL (7.4-10.4); PLATELET COUNT 233 K/uL (130-400); RED CELL DISTRIBUTION WIDTH CV 14.1 % (11.5-14.5); RED CELL DISTRIBUTION WIDTH SD 46.5 fL (36.4-46.3); WHITE BLOOD COUNT 5.57 K/uL (4.8-10.8)
[2017-05-16 07:04] LABS: CALCIUM 8.4 mg/dl (8.5-10.1); CREATININE 0.62 mg/dl (0.60-1.40); POTASSIUM 3.5 mmol/L (3.5-5.1)
[2017-05-16 07:31] VITALS: BP 115/67; PULSE 55; TEMP 37.1; O2SAT 97
[2017-05-16] MEDS: SERTRALINE HCL 100 MG TAB PO SCH (08:39)
[2017-05-16] MEDS: SACCHAROMYCES BOUL (FLORASTOR) 250 MG CAP PO SCH (08:39)
[2017-05-16] MEDS: MISOPROSTOL 100 MCG TAB PO SCH ×2 (08:40→19:44)
[2017-05-16] MEDS: CHOLECALCIFEROL 1000 INTER.UNIT TAB PO SCH (08:40)
[2017-05-16] MEDS: DOCUSATE SODIUM 100 MG CAP PO SCH ×2 (08:40→19:44)
[2017-05-16] MEDS: OMEGA-3 (PURIFIED FISH OIL) 1 GM CAP PO SCH ×2 (08:40→19:43)
[2017-05-16] MEDS ORDERED: CALCIUM 600MG + VIT D 400 IU TAB PO SCH (09:00)
--- NOTE | 2017-05-16 13:04 | Family Medicine Progress Note ---
Progress Note Date of Service May 16, 2017. Subjective Pt evaluation today including: conversation w/ patient Pain: none Voiding: salazar catheter in place Constitutional: No fever, No chills Eyes: No worsening of vision ENT: No hearing loss Respiratory: No cough, No sputum, No wheezing, No shortness of breath, No dyspnea on exertion Cardiovascular: No chest pain Abdomen: No pain, No nausea, No diarrhea Medications Medications (Trade) Dose Ordered Sig/Yovana Route Start Time Stop Time Status Last Admin Dose Admin Calcium/Vitamin D (Caltrate Plus Tab) 1 tab Q2D@0900 PO 05/16/17 09:00 06/15/17 08:59 05/16/17 08:40 1 TAB Misoprostol (Cytotec Tab) 100 mcg BID PO 05/15/17 20:00 06/14/17 19:59 05/16/17 08:40 100 MCG Objective Vital Signs Date Time Temp Pulse Resp B/P (MAP) Pulse Ox O2 Delivery O2 Flow Rate FiO2 05/16/17 09:38 Room Air 05/16/17 07:31 37.1 55 20 115/67 (83) 97 05/16/17 00:00 Room Air 05/15/17 23:38 37.0 61 20 104/66 (79) 92 Room Air 05/15/17 20:00 Room Air 05/15/17 18:06 Room Air 05/15/17 15:00 36.9 63 20 125/72 (89) 97 Physical Exam General Appearance: no apparent distress Eyes: PERRL, EOMI ENT: hearing grossly normal Respiratory/Chest: lungs clear, normal breath sounds, no respiratory distress, no accessory muscle use Cardiovascular: regular rate, rhythm, no murmur Abdomen: normal bowel sounds, soft Laboratory Results Last 24 Hours Test 05/16/17 05:57 White Blood Count 5.57 K/uL Red Blood Count 4.60 M/uL Hemoglobin 14.2 g/dL Hematocrit 41.5 % Mean Corpuscular Volume 90.2 fL Mean Corpuscular Hemoglobin 30.9 pg Mean Corpuscular Hemoglobin Concent 34.2 g/dl RDW Standard Deviation 46.5 fL RDW Coefficient of Variation 14.1 % Platelet Count 233 K/uL Mean Platelet Volume 9.9 fL Sodium Level 138 mmol/L Potassium Level 3.5 mmol/L Chloride Level 105 mmol/L Carbon Dioxide Level 27 mmol/L Anion Gap 6.0 mmol/L Blood Urea Nitrogen 10 mg/dl Creatinine 0.62 mg/dl Est Creatinine Clear Calc Drug Dose 127.7 ml/min Estimated GFR () 121.5 Estimated GFR (Non- 104.8 BUN/Creatinine Ratio 16.6 Random Glucose 109 mg/dl Calcium Level 8.4 mg/dl Assessment and Plan 66 y/o male with a history of MS and neurogenic bladder with chronic Salazar catheter who presents with weakness secondary to UTI Sepsis 2/2 UTI - History of neurogenic bladder (Multiple Sclerosis) with chronic Salazar - UA: 2+ Blood, 4+ bacteria, + Nit, Large Leuk Est - Salazar changed in the ED - IV --> Augmentin PO and Cipro PO, Previous UTI was penicillin sensitive enterococcus and pseudomonas - Urine culture with more than 3 organisms in large quantities- likely not contaminant Multiple Sclerosis - Baclofen pump - Continue home Cytotec - Swallow evaluation to be done outpatient. - CXR- no acute process Stage 3 Pressure Ulcer Left Buttocks - Wound Care following Depression - Continue home Zoloft DVT prophylaxis - Lovenox - SCDs Code Status - Full Resuscitation Attending Resident Physician Supervision Note: I personally interviewed and examined the patient with resident Dr. Almanzar I agree with progress note and physical exam mentioned above, I also performed my own encounter and examination. I reviewed all pertinent labs and studies Reviewed current medications I discussed and formulated of the assessment and plan with resident as mentioned above. Please refer to the Summary mentioned below: 66 y/o male with a history of multiple sclerosis and neurogenic bladder with chronic salazar catheter admitted because of UTI associated with with weakness History of enterococcus and pseudomonas, continue with Ciprofloxacin and Ampicillin, Urine culture showed possible contamination, however patient is general condition improved, will continue oral antibiotics for total 7 days, Multiple Sclerosis, stable continue current care, planning to discharge home tomorrow, speech therapist recommend a video studies will need to be done as outpatient Stage 3 Pressure Ulcer Left Buttox, the central area of stage III, continue wound care Continued [facility] stay due to: home environment unsafe for pt Discharge planning: home
[2017-05-16] MEDS ORDERED: DICLOFENAC SOD 1% GEL 100 GM TUBE EXT PRN (13:15)
--- NOTE | 2017-05-16 14:28 | DIAGNOSTIC IMAGING REPORT ---
CERVICAL SPINE 5 VIEWS HISTORY: injury with wheelchair - prior to admission COMPARISON: None. FINDINGS: The cervical spine is visualized from C1 through the superior endplate of C7. The majority of C7 and T1 are clear but the patient's overlapping shoulders. There is mild reversal the normal lordotic curvature. No fracture or subluxation. Disc spaces are preserved. Prevertebral soft tissues and the atlantodens interval are intact. IMPRESSION: 1. No fracture or subluxation within the visualized cervical spine. 2. The cervical spine is visualized from C1 through the super endplate of C7. Electronically signed by: Michael Haque M.D. 05/16/2017 2:26 PM Dictated Date/Time: 05/16/2017 2:25 PM
[2017-05-16 15:32] VITALS: BP 110/67; PULSE 56; TEMP 36.5; O2SAT 95
[2017-05-16] MEDS: AMOXICILLIN/CLAVULANATE TAB 875 MG TAB PO SCH (17:45)
[2017-05-16] MEDS: CIPROFLOXACIN 500 MG TAB PO SCH (19:42)
[2017-05-16] MEDS: ENOXAPARIN 40 MG/0.4 ML SYR SQ SCH (20:46)
[2017-05-16 23:15] VITALS: BP 120/72; PULSE 70; TEMP 36.8; O2SAT 94
[2017-05-17] VITALS: O2SAT 94
[2017-05-17 06:45] LABS: HEMATOCRIT 41.1 % (42-52); HEMOGLOBIN 14.4 g/dL (14.0-18.0); MEAN CELL VOLUME 90.5 fL (80-100); MEAN CORPUSCULAR HEMOGLOBIN 31.7 pg (25-34); MEAN PLATELET VOLUME 10.2 fL (7.4-10.4); PLATELET COUNT 260 K/uL (130-400); RED CELL DISTRIBUTION WIDTH SD 46.3 fL (36.4-46.3); WHITE BLOOD COUNT 5.73 K/uL (4.8-10.8)
[2017-05-17 07:13] LABS: CALCIUM 8.6 mg/dl (8.5-10.1); CREATININE 0.63 mg/dl (0.60-1.40); POTASSIUM 3.8 mmol/L (3.5-5.1)
[2017-05-17] MEDS: SERTRALINE HCL 100 MG TAB PO SCH (08:08)
[2017-05-17] MEDS: CIPROFLOXACIN 500 MG TAB PO SCH (08:09)
[2017-05-17] MEDS: MISOPROSTOL 100 MCG TAB PO SCH (08:09)
[2017-05-17] MEDS: OMEGA-3 (PURIFIED FISH OIL) 1 GM CAP PO SCH (08:09)
[2017-05-17] MEDS: SACCHAROMYCES BOUL (FLORASTOR) 250 MG CAP PO SCH (08:09)
[2017-05-17] MEDS: DOCUSATE SODIUM 100 MG CAP PO SCH (08:09)
[2017-05-17] MEDS: CHOLECALCIFEROL 1000 INTER.UNIT TAB PO SCH (08:09)
[2017-05-17] MEDS: AMOXICILLIN/CLAVULANATE TAB 875 MG TAB PO SCH (08:09)
[2017-05-17 08:16] VITALS: BP 108/61; PULSE 49; TEMP 36.8; O2SAT 95
[2017-05-17] MEDS ORDERED: CPR500 PO (10:11)
[2017-05-17] MEDS ORDERED: AMOX1TAB43 PO (10:11)
--- NOTE | 2017-05-17 10:15 | Discharge Instructions ---
Discharge Instructions Date of Service May 17, 2017. Admission Reason for Admission: Uti (Urinary Tract Infection) Discharge Discharge Diagnosis / Problem: Urinary Tract infection Discharge Goals Goal(s): Decrease discomfort, Diagnostic testing, Therapeutic intervention, Prevent Disease Progression Activity Recommendations Activity Limitations: as noted below Lifting Limitations: gradually increase as tolerated Exercise/Sports Limitations: gradually increase as tolerated May Resume Sexual Activity: when tolerated Shower/Bathe: no limitations . Instructions / Follow-Up Instructions / Follow-Up Mr. Villegas You were admitted due to weakness that was attributed to a urinary tract infection You were treated with IV antibiotics and your symptoms improved Please complete the course of antibiotics as prescribed. We also recommend continued wound care for your ulcer. Follow up with your PCP within 3-5 days If you have any concerns or new symptoms (chest pain, weakness, shortness of breath etc), please call your PCP or come back to the ER. Current Hospital Diet Patient's current hospital diet: Regular Diet Discharge Diet Recommended Diet: Regular Diet Pending Studies Studies pending at discharge: no Medical Emergencies . Who to Call and When: Medical Emergencies: If at any time you feel your situation is an emergency, please call 911 immediately. . Non-Emergent Contact Non-Emergency issues call your: Primary Care Provider, Bottle Capper Call Non-Emergent contact if: you have a fever, your pain is worsening . . "Provider Documentation" section prepared by Nevin Duval. . VTE Core Measure Inpt VTE Proph given/why not?: Enoxaparin (Lovenox)SCOTT, T.E.Jeancarlos Stockings, SCD's
--- NOTE | 2017-05-17 10:18 | Discharge Summary ---
Discharge Summary Date of Service May 17, 2017. Discharge Summary Admission Date: May 14, 2017 at 16:36 Discharge Date: May 17, 2017 Discharge Disposition: Home Principal Diagnosis: Sepsis 2/2 Complicated UTI (chronic Salazar) Problems/Secondary Diagnoses: Sepsis UTI Multiple Sclerosis Stage 3 pressure ulcer Left buttocks Neck pain Immunizations: Have You Had Influenza Vaccine: Yes Influenza Vaccine Date: May 02, 2010 History of Tetanus Vaccine?: Unknown History of Pneumococcal: No History of Hepatitis B Vaccine: Unknown Consultations: none Medication Reconciliation New Medications: Amoxicillin & Pot Clavulanate (Amoxicillin/Clavulanate P) 1 Tab Tab 875 MG PO BIDM for 7 Days, #14 TAB Ciprofloxacin (Ciprofloxacin HCl) 500 Mg Tab 500 MG PO BID for 5 Days, #10 TAB Continued Medications: Acetaminophen (Tylenol) 500 Mg Tab 500 MG PO Q4H PRN for Pain or Fever Ascorbic Acid (Ascorbic Acid) 1,000 Mg Tab 1000 MG PO QAM B-Complex W/ Folic Acid (Super B Complex Maxi) 1 Tab Tab 1 TAB PO QAM Baclofen (Lioresal) 10 Mg Tab 0.5 TAB PO DAILY PRN for Muscle Spasms Calcium/Vitamin D (Os-Wild 500 Plus D) Tab 1 TAB PO Q2D Cholecalciferol (Vitamin D3) 1,000 Unit Tab 5000 UNITS PO QAM Docusate Sodium (Stool Softener) 100 Mg Cap 200 MG PO BID Fish Oil ([place]-3) 1 Ea Cap 1 CAP PO BID Misoprostol (Cytotec) 200 Mcg Tab 100 MCG PO BID Naproxen (Aleve) 220 Mg Tab 220 MG PO UD Ocrelizumab (Ocrevus) 300 Mg/10 Ml Inj 1 DOSE IV Q6MO Saccharomyces Boulardii (Probiotic) 250 Mg Cap 1 CAP PO QAM Sertraline (Zoloft) 100 Mg Tab 100 MG PO QAM Sodium Phosphates (Fleet Enema Six Pack) 1 Bisi Bisi 1 RE THREE TIMES WEEKLY Thursday, Thursday, Thursday [Baclofen Pump] () SQ CONTINOUS Discharge Exam This is a 66 y/o M with a history of MS, neurogenic bladder with chronic salazar who presented with weakness secondary to UTI. His salazar was exchanged in the ED. He was started on IV Ampicilin and Cipro based on previous culture results ( Enterococci and pseudomonas). His current urin culture had 3 organisms in high quantities without any further specifications. He was switched to oral Augmentin and Cipro and discharged home at his baseline. He did have some neck pain as a result of a wheelchair injury that happened at home prior to admission. a C-Spine xray was negative for fractures/dislocations. His symptoms improved with voltaren gel and heading pad. He does also have a stage 3 pressure ulcer on his left buttock that was managed by wound care. The patient was discharged home and has home health services. Review of Systems: Constitutional: No fever, No chills Eyes: No worsening of vision ENT: No hearing loss Respiratory: No cough, No sputum, No wheezing, No shortness of breath, No dyspnea on exertion, No dyspnea at rest Cardiovascular: No chest pain Abdomen: No pain, No nausea, No vomiting, No diarrhea Neurologic: + paralysis, + weakness, + numbness/tingling Physical Exam: General Appearance: no apparent distress Eyes: PERRL, EOMI ENT: hearing grossly normal Neck: supple, no JVD Respiratory/Chest: lungs clear, normal breath sounds, no respiratory distress, no accessory muscle use Cardiovascular: regular rate, rhythm, no murmur Abdomen / GI: normal bowel sounds, non tender, soft, + pertinent finding ( baclofen pump in place) Extremities: no calf tenderness, no pedal edema Neurologic/Psychiatric: alert, + depressed affect Skin: + pertinent finding (ulcer on left buttock, improving slightly) Hospital Course Attending Resident Physician Supervision Note: I personally interviewed and examined the patient with resident Dr. Almanzar I agree with progress note and physical exam mentioned above, I also performed my own encounter and examination. I reviewed all pertinent labs and studies Reviewed current medications I discussed and formulated of the assessment and plan with resident as mentioned above. Please refer to the Summary mentioned below: 66 y/o male with a history of multiple sclerosis and neurogenic bladder with chronic salazar catheter admitted because of UTI associated with with weakness History of enterococcus and pseudomonas, continue with Ciprofloxacin and Ampicillin, Urine culture showed possible contamination, however patient is general condition improved, will continue oral antibiotics cipro and Augmentin for total 7 days, Multiple Sclerosis, stable continue current care, planning to discharge home, speech therapist recommend a video studies will need to be done as outpatient, pcp please follow up. Stage 3 Pressure Ulcer Left [place]tox, the central area of stage III, continue wound care Total Time Spent: Greater than 30 minutes This includes examination of the patient, discharge planning, medication reconciliation, and communication with other providers. Discharge Instructions Please refer to the electronic Patient Visit Report (Discharge Instructions) for additional information. Follow-Up PCP, 3-5 days from discharge Additional Copies To Gato Robbins M.D.
[2017-05-17] MEDS: SOD PHOSPHATE/SOD BIPHOSPHATE ENEMA 132 ML BTL PR SCH (10:33)
[2017-05-17 13:34] VITALS: BP 108/61; PULSE 49; TEMP 36.8; O2SAT 95
--- NOTE | 2017-05-20 08:09 | EDITING REQUIRED CODING QUERY ---
CODING CLARIFICATION Please clarify below if the cause of the urinary tract infection is known: (x ) Caused by indwelling salazar catheter ( ) Cause of urinary tract infection is not known ( ) Other cause of urinary tract infection, please clarify: Thank you for your assistance, Rain Lopez - Coding Specilaist
== END 2017-05-17 14:59 | disposition home health service (06) ==
LOC: C.EDB 11:00 → INTOOBSV 16:36 → C.4E 16:36 → EDBEDREQ 17:06 → ENRESERV 17:58
PROVIDERS: ADMIT Internal Medicine; ATTEND Hospitalist
DX: A41.9 Sepsis, unspecified organism (principal); T83.518A Infection and inflammatory reaction due to other urinary catheter, initial encounter; N39.0 Urinary tract infection, site not specified; Y84.6 Urinary catheterization as the cause of abnormal reaction of the patient, or of later complication, without mention of misadventure at the time of the procedure; G35 Multiple sclerosis; R53.2 Functional quadriplegia; I95.9 Hypotension, unspecified; L89.323 Pressure ulcer of left buttock, stage 3; M54.2 Cervicalgia; N31.9 Neuromuscular dysfunction of bladder, unspecified; K59.2 Neurogenic bowel, not elsewhere classified; B95.2 Enterococcus as the cause of diseases classified elsewhere; B96.5 Pseudomonas (aeruginosa) (mallei) (pseudomallei) as the cause of diseases classified elsewhere; Z83.6 Family history of other diseases of the respiratory system

== ENCOUNTER → 2017-05-29 | Outpatient (CLI) | payer BC ==
[~2017-05-29] MED LIST changes: +ACET-1256 PO; -ACET-1257 PO; +AMOX1TAB43 PO; +CPR500 PO; +NAPR1TAB9 PO; +OCRE300I IV; +SERT-234 PO; -SERT50TA PO
[2017-05-29 12:42] LABS: BASO % 0.9 %; BASO ABS # 0.06 K/uL (0-0.2); EOS % 2.7 %; EOS ABS # 0.19 K/uL (0-0.5); HEMATOCRIT 47.6 % (42-52); HEMOGLOBIN 16.8 g/dL (14.0-18.0); IG# 0.02 K/uL (0.00-0.02); LYMPH % 24.7 %; LYMPH ABS # 1.72 K/uL (1.2-3.4); MEAN CELL VOLUME 89.8 fL (80-100); MEAN CORPUSCULAR HEMOGLOBIN 31.7 pg (25-34); MEAN CORPUSCULAR HGB CONC 35.3 g/dl (32-36); MEAN PLATELET VOLUME 10.4 fL (7.4-10.4); MONO % 9.2 %; MONO ABS # 0.64 K/uL (0.11-0.59); NEUT % 62.2 %; NEUT ABS # 4.33 K/uL (1.4-6.5); PLATELET COUNT 355 K/uL (130-400); RED CELL DISTRIBUTION WIDTH CV 14.3 % (11.5-14.5); RED CELL DISTRIBUTION WIDTH SD 46.8 fL (36.4-46.3); WHITE BLOOD COUNT 6.96 K/uL (4.8-10.8)
--- NOTE | 2017-06-03 14:23 | CODING QUERY NO DIAGNOSIS ---
: 1950 TREATMENT RENDERED WITHOUT A DIAGNOSIS To promote full compliance with coding requirements relating to patient care, physician participation is requested in all cases of simplex printer installer uncertainty. Please assist us with providing a diagnosis/symptom for the test(s) below: A diagnosis/symptom was not documented on your Order. A valid diagnosis/symptom is required to bill all insurances. Please remember that we are unable to code a diagnosis of rule out, probable, possible, questionable, or suspected. Tests that require a diagnosis: DOS: 05/29/17 * CBC WITH AUTO DIFFERENTIAL DIAGNOSIS: * FECAL OCCULT BLOOD DIAGNOSIS: Provider Signature: Date: Thank you Concepcion Britt Health Information Management Once completed, please kindly fax back to [phone] For questions please call [phone]
== END | disposition home or self-care (01) ==
LOC: C.LABSPEC 12:08
PROVIDERS: ATTEND Internal Medicine
DX: K92.1 Melena (principal)

== ENCOUNTER → 2017-06-11 | Outpatient (CLI) | payer BC | END | disposition home or self-care (01) | LOC: C.LABBFT 10:29 | PROVIDERS: ATTEND Internal Medicine | DX: R19.7 Diarrhea, unspecified (principal) ==

== ENCOUNTER 2017-07-10 10:13 | Inpatient (IN) | payer BC, OTHER ==
[~2017-07-10] VITALS: Ht 180.3 cm; Wt 76.6 kg
[~2017-07-10 10:13] MED LIST changes: -AMOX1TAB43 PO
[2017-07-10] MEDS ORDERED: OPTIRAY 320 IV PRN (11:00)
[2017-07-10 11:19] LABS: BASO % 0.1 %; BASO ABS # 0.02 K/uL (0-0.2); EOS % 0.1 %; EOS ABS # 0.01 K/uL (0-0.5); HEMATOCRIT 46.7 % (42-52); HEMOGLOBIN 16.5 g/dL (14.0-18.0); IG# 0.07 K/uL (0.00-0.02); MEAN CELL VOLUME 89.6 fL (80-100); MEAN CORPUSCULAR HEMOGLOBIN 31.7 pg (25-34); MEAN CORPUSCULAR HGB CONC 35.3 g/dl (32-36); MEAN PLATELET VOLUME 10.4 fL (7.4-10.4); MONO % 8.5 %; MONO ABS # 1.66 K/uL (0.11-0.59); NEUT % 88.9 %; NEUT ABS # 17.36 K/uL (1.4-6.5); PLATELET COUNT 235 K/uL (130-400); RED CELL DISTRIBUTION WIDTH CV 14.7 % (11.5-14.5); RED CELL DISTRIBUTION WIDTH SD 48.3 fL (36.4-46.3); WHITE BLOOD COUNT 19.52 K/uL (4.8-10.8)
[2017-07-10 11:27] LABS: PTT PATIENT 28.3 SECONDS (21.0-31.0)
[2017-07-10 11:34] LABS: ALBUMIN 3.3 gm/dl (3.4-5.0); ALT/SGPT 29 U/L (12-78); AST/SGOT 17 U/L (15-37); BLOOD UREA NITROGEN 23 mg/dl (7-18); CALCIUM 9.2 mg/dl (8.5-10.1); CARBON DIOXIDE 29 mmol/L (21-32); CREATININE 1.41 mg/dl (0.60-1.40); GLUCOSE 124 mg/dl (70-99); POTASSIUM 4.2 mmol/L (3.5-5.1); SODIUM 136 mmol/L (136-145)
--- NOTE | 2017-07-10 11:38 | DIAGNOSTIC IMAGING REPORT ---
SINGLE VIEW CHEST CLINICAL HISTORY: Change in mental status. FINDINGS: An AP, portable, upright chest radiograph is compared to study dated 05/14/2017. Correlation is made with chest CT dated 12/21/2014. The examination is degraded by portable technique and patient rotation. The heart is enlarged. The pulmonary vasculature is noncongested. The lungs and pleural spaces are clear. No pneumothorax is seen. The skeletal structures are osteopenic. The bony thorax is grossly intact. IMPRESSION: Cardiomegaly with no acute cardiopulmonary abnormality. Electronically signed by: Aldair Yeager M.D. 07/10/2017 11:37 AM Dictated Date/Time: 07/10/2017 11:36 AM
[2017-07-10 11:39] LABS: ALKALINE PHOSPHATASE 100 U/L (45-117); TOTAL PROTEIN 7.7 gm/dl (6.4-8.2)
--- NOTE | 2017-07-10 13:31 | DIAGNOSTIC IMAGING REPORT ---
ABDOMEN AND PELVIS CT WITH IV CONTRAST CT DOSE: 535.67 mGy.cm HISTORY: Vomiting with acute generalized abdominal pain vomiting and abd pain TECHNIQUE: Multiaxial CT images of the abdomen and pelvis were performed following the use of intravenous contrast. A dose lowering technique was utilized adhering to the principles of ALARA. COMPARISON STUDY: CT 09/23/2016. FINDINGS: Mild dependent subsegmental bibasilar atelectasis. No pneumatosis or pneumoperitoneum. Imaged inferior cardiac chambers are unremarkable without pericardial effusion. Cholelithiasis within a irregularly contracted gallbladder, unchanged. Multiple hepatic cysts redemonstrated measuring up to 2.1 cm within the left hepatic lobe. Spleen, pancreas and adrenal glands are unremarkable. There is mild bilateral perinephric stranding with urothelial enhancement of the bilateral ureters. There is patchy enhancement of the bilateral kidneys, left greater than right. No renal calculi or obstructive uropathy. There is bladder wall thickening with moderate perivesicular inflammatory stranding. Cochran catheter is present within the mid urinary bladder along with nondependent urinary bladder air. Additionally, there is a 4 mm calcification of the dependent bladder. Previously noted nonobstructing calculus of the inferior pole left kidney is no longer identified. Punctate calculus of the interpolar left kidney. Moderate atherosclerosis of the aorta Vasculature with suspected high-grade luminal narrowing again seen within the region of the distal right common iliac artery. No bulky adenopathy. Duodenal diverticulum. No bowel structure or focal bowel wall thickening. Normal appendix. Battery pack of the right lower anterior abdominal wall with single stimulator lead entering the central canal terminating at the level the midthoracic spine. Bones appear mildly demineralized and appear intact. IMPRESSION: 1. Bilateral perinephric stranding with patchy enhancement of the bilateral kidneys and bilateral urothelial enhancement of the ureters suggest pyelonephritis with ascending infectious ureteritis. 2. Wall thickening of the bladder with perivesicular inflammatory stranding suggests cystitis. 4 mm calculus of the dependent urinary bladder. 3. Punctate calculus of the interpolar left kidney with previously noted nonobstructing 3 mm left renal calculus no longer identified, likely passed in the interval 4. Cholelithiasis. 5. Additional findings as above. Electronically signed by: Durga Case M.D. 07/10/2017 1:29 PM Dictated Date/Time: 07/10/2017 1:21 PM
[2017-07-10] MEDS ORDERED: CEFTRIAXONE SOD INJ 1 GM ADDVIAL IV STA (14:23)
[2017-07-10] MEDS ORDERED: SODIUM CHLORIDE 0.9% 1000ML 2,000 ML IV STA (14:28)
[2017-07-10] MEDS ORDERED: LEVAQUIN 500MG / 100ML D5W IV ONE (14:30)
[2017-07-10] MEDS ORDERED: PIPERACILLIN/TAZOBACTAM 4.5 GM/100ML D5W IV STA (14:40)
[2017-07-10] MEDS ORDERED: ACETAMINOPHEN 325 MG TAB PO PRN (15:00)
[2017-07-10] MEDS ORDERED: BACLOFEN 10 MG TAB PO PRN (15:00)
[2017-07-10] MEDS ORDERED: ONDANSETRON INJ 2 MG/ML 2 ML VIAL IV PRN (15:00)
[2017-07-10] MEDS ORDERED: ALUMINUM/MAGNESIUM/SIMETH (MAALOX MAX) 30 ML UDC PO PRN (15:00)
[2017-07-10] MEDS ORDERED: MAGNESIUM HYDROXIDE SUSP 30 ML UDC PO PRN (15:00)
[2017-07-10] MEDS ORDERED: POLYETHYLENE (MIRALAX) 17 GM PACK PO PRN (15:00)
--- NOTE | 2017-07-10 15:01 | History and Physical ---
History & Physical Date & Time of Service: Jul 10, 2017 at 15:00 Chief Complaint: Illness Primary Care Physician: Gato Robbins M.D. History of Present Illness Source: patient, family ( at bedside), clinic records, hospital records This is a 66 y/o male with a history of MS, cognitive disorder, depression, neurogenic bladder and neurogenic bowel who presented to the ED due to nausea/ vomiting and low grade fever x1 day. The patient has an indwelling catheter with history of frequent urinary tract infections. His Salazar gets changed monthly- last change on 07/07. Per , he started to experience diarrhea a few days ago- resolved, last BM 2 nights ago. Yesterday, he started to experience nausea and vomiting. He also had a low-grade temperature last evening- she gave him Tylenol. According to patient, he just feels generally unwell. +chills, N/ V. Patient denies any sweats, lightheadedness, dizziness, vision changes, CP, palpitations, edema, SOB, wheezing, cough, abdominal pain, diarrhea, urinary symptoms, melena, numbness/tingling, weakness, muscle/joint pain, anxiety/ depression, active bleeding, or new skin discoloration/changes. Past Medical/Surgical History Medical Problems: MS cognitive disorder depression neurogenic bladder neurogenic bowel Family History Cancer (lung, pancreatic) Lung disease Social History Smoking Status: Never Smoker Drug Use: none Marital Status: Housing status: lives with significant other Occupational Status: retired, disabled Immunizations History of Influenza Vaccine: Yes Influenza Vaccine Date: May 02, 2010 History of Tetanus Vaccine?: Unknown History of Pneumococcal: No History of Hepatitis B Vaccine: Unknown Allergies Coded Allergies: No Known Allergies (Verified , 07/10/17) Home Medications Scheduled Ascorbic Acid (Ascorbic Acid), 1,000 MG PO QAM B-Complex W/ Folic Acid (Super B Complex Maxi), 1 TAB PO QAM Calcium/Vitamin D (Os-Wild 500 Plus D), 1 TAB PO Q2D Cholecalciferol (Vitamin D3), 5,000 UNITS PO QAM Docusate Sodium (Stool Softener), 200 MG PO BID Fish Oil ([place]-3), 1 CAP PO BID Misoprostol (Cytotec), 100 MCG PO BID Naproxen (Aleve), 220 MG PO UD Ocrelizumab (Ocrevus), 1 DOSE IV Q6MO Saccharomyces Boulardii (Probiotic), 1 CAP PO QAM Sertraline (Zoloft), 100 MG PO QAM Sodium Phosphates (Fleet Enema Six Pack), 1 RE THREE TIMES WEEKLY [Baclofen Pump], SQ CONTINOUS Scheduled PRN Acetaminophen (Tylenol), 500 MG PO Q4H PRN for Pain or Fever Baclofen (Lioresal), 0.5 TAB PO DAILY PRN for Muscle Spasms Physical Exam Vital Signs Date Time Temp Pulse Resp B/P (MAP) Pulse Ox O2 Delivery O2 Flow Rate FiO2 07/10/17 14:27 111 24 153/82 96 Room Air 07/10/17 13:10 94 20 125/66 95 Room Air 07/10/17 12:50 88 07/10/17 11:51 85 16 118/68 95 Room Air 07/10/17 11:02 82 17 149/82 95 Room Air 07/10/17 10:27 36.9 83 17 132/80 95 Room Air 07/10/17 10:22 94 General Appearance: no apparent distress Head: normocephalic, atraumatic Eyes: normal inspection, PERRL ENT: hearing grossly normal Neck: supple Respiratory/Chest: lungs clear, no respiratory distress, no accessory muscle use Cardiovascular: regular rate, rhythm Abdomen/GI: normal bowel sounds, non tender, soft Back: normal inspection Extremities/Musculoskelatal: no calf tenderness, no pedal edema Neurologic/Psych: alert, oriented x 3 Skin: normal color, no rash, + pertinent finding (Skin warm to touch ) Diagnostics Laboratory Results Results Past 24 Hours Test 07/10/17 11:05 07/10/17 11:45 07/10/17 13:46 Range/Units White Blood Count 19.52 4.8-10.8 K/uL Red Blood Count 5.21 4.7-6.1 M/uL Hemoglobin 16.5 14.0-18.0 g/dL Hematocrit 46.7 42-52 % Mean Corpuscular Volume 89.6 80-100 fL Mean Corpuscular Hemoglobin 31.7 25-34 pg Mean Corpuscular Hemoglobin Concent 35.3 32-36 g/dl Platelet Count 235 130-400 K/uL Mean Platelet Volume 10.4 7.4-10.4 fL Neutrophils (%) (Auto) 88.9 % Lymphocytes (%) (Auto) 2.0 % Monocytes (%) (Auto) 8.5 % Eosinophils (%) (Auto) 0.1 % Basophils (%) (Auto) 0.1 % Neutrophils # (Auto) 17.36 1.4-6.5 K/uL Lymphocytes # (Auto) 0.40 1.2-3.4 K/uL Monocytes # (Auto) 1.66 0.11-0.59 K/uL Eosinophils # (Auto) 0.01 0-0.5 K/uL Basophils # (Auto) 0.02 0-0.2 K/uL RDW Standard Deviation 48.3 36.4-46.3 fL RDW Coefficient of Variation 14.7 11.5-14.5 % Immature Granulocyte % (Auto) 0.4 % Immature Granulocyte # (Auto) 0.07 0.00-0.02 K/uL Prothrombin Time 10.9 9.0-12.0 SECONDS Prothromb Time International Ratio 1.0 0.9-1.1 Activated Partial Thromboplast Time 28.3 21.0-31.0 SECONDS Partial Thromboplastin Ratio 1.1 Sodium Level 136 136-145 mmol/L Potassium Level 4.2 3.5-5.1 mmol/L Chloride Level 104 98-107 mmol/L Carbon Dioxide Level 29 21-32 mmol/L Anion Gap 3.0 3-11 mmol/L Blood Urea Nitrogen 23 7-18 mg/dl Creatinine 1.41 0.60-1.40 mg/dl Est Creatinine Clear Calc Drug Dose 57.3 ml/min Estimated GFR () 60.6 Estimated GFR (Non- 52.3 BUN/Creatinine Ratio 16.7 10-20 Random Glucose 124 70-99 mg/dl Calcium Level 9.2 8.5-10.1 mg/dl Total Bilirubin 1.3 0.2-1 mg/dl Direct Bilirubin 0.3 0-0.2 mg/dl Aspartate Amino Transf (AST/SGOT) 17 15-37 U/L Alanine Aminotransferase (ALT/SGPT) 29 12-78 U/L Alkaline Phosphatase 100 45-117 U/L Troponin I < 0.015 0-0.045 ng/ml Total Protein 7.7 6.4-8.2 gm/dl Albumin 3.3 3.4-5.0 gm/dl Urine Color DK YELLOW Urine Appearance TURBID CLEAR Urine pH 6.5 4.5-7.5 Urine Specific [place] 1.018 1.000-1.030 Urine Protein 3+ NEG Urine Glucose (UA) NEG NEG Urine Ketones TRACE NEG Urine Occult Blood 3+ NEG Urine Nitrite POS NEG Urine Bilirubin NEG NEG Urine Urobilinogen NEG NEG Urine Leukocyte Esterase LARGE NEG Urine WBC (Auto) >30 0-5 /hpf Urine RBC (Auto) 10-30 0-4 /hpf Urine Hyaline Casts (Auto) 5-10 0-5 /lpf Urine Epithelial Cells (Auto) 10-20 0-5 /lpf Urine Bacteria (Auto) 4+ NEG Urine Crystals CALCIUM OXALATE NONE PRSENT Urine Pathogenic Casts 0 /lpf Urine Yeast (Auto) NONE PRSENT Lactic Acid Level 2.0 0.4-2.0 mmol/L Microbiology Results 07/10/17 Urine Culture, Received Pending Diagnostic Radiology SINGLE VIEW CHEST CLINICAL HISTORY: Change in mental status. FINDINGS: An AP, portable, upright chest radiograph is compared to study dated 05/14/2017. Correlation is made with chest CT dated 12/21/2014. The examination is degraded by portable technique and patient rotation. The heart is enlarged. The pulmonary vasculature is noncongested. The lungs and pleural spaces are clear. No pneumothorax is seen. The skeletal structures are osteopenic. The bony thorax is grossly intact. IMPRESSION: Cardiomegaly with no acute cardiopulmonary abnormality. Electronically signed by: Aldair Yeager M.D. 07/10/2017 11:37 AM Dictated Date/Time: 07/10/2017 11:36 AM The status of this report is Signed. Draft = Not yet reviewed or approved by Radiologist. Signed = Reviewed and approved by Radiologist. ABDOMEN AND PELVIS CT WITH IV CONTRAST CT DOSE: 535.67 mGy.cm HISTORY: Vomiting with acute generalized abdominal pain vomiting and abd pain TECHNIQUE: Multiaxial CT images of the abdomen and pelvis were performed following the use of intravenous contrast. A dose lowering technique was utilized adhering to the principles of ALARA. COMPARISON STUDY: CT 09/23/2016. FINDINGS: Mild dependent subsegmental bibasilar atelectasis. No pneumatosis or pneumoperitoneum. Imaged inferior cardiac chambers are unremarkable without pericardial effusion. Cholelithiasis within a irregularly contracted gallbladder, unchanged. Multiple hepatic cysts redemonstrated measuring up to 2.1 cm within the left hepatic lobe. Spleen, pancreas and adrenal glands are unremarkable. There is mild bilateral perinephric stranding with urothelial enhancement of the bilateral ureters. There is patchy enhancement of the bilateral kidneys, left greater than right. No renal calculi or obstructive uropathy. There is bladder wall thickening with moderate perivesicular inflammatory stranding. Salazar catheter is present within the mid urinary bladder along with nondependent urinary bladder air. Additionally, there is a 4 mm calcification of the dependent bladder. Previously noted nonobstructing calculus of the inferior pole left kidney is no longer identified. Punctate calculus of the interpolar left kidney. Moderate atherosclerosis of the aorta Vasculature with suspected high-grade luminal narrowing again seen within the region of the distal right common iliac artery. No bulky adenopathy. Duodenal diverticulum. No bowel structure or focal bowel wall thickening. Normal appendix. Battery pack of the right lower anterior abdominal wall with single stimulator lead entering the central canal terminating at the level the midthoracic spine. Bones appear mildly demineralized and appear intact. IMPRESSION: 1. Bilateral perinephric stranding with patchy enhancement of the bilateral kidneys and bilateral urothelial enhancement of the ureters suggest pyelonephritis with ascending infectious ureteritis. 2. Wall thickening of the bladder with perivesicular inflammatory stranding suggests cystitis. 4 mm calculus of the dependent urinary bladder. 3. Punctate calculus of the interpolar left kidney with previously noted nonobstructing 3 mm left renal calculus no longer identified, likely passed in the interval 4. Cholelithiasis. 5. Additional findings as above. Electronically signed by: Durga Case M.D. 07/10/2017 1:29 PM Dictated Date/Time: 07/10/2017 1:21 PM The status of this report is Signed. Draft = Not yet reviewed or approved by Radiologist. Signed = Reviewed and approved by Radiologist Impression Assessment and Plan This is a 66 y/o male with a history of MS, cognitive disorder, depression, neurogenic bladder and neurogenic bowel who presented to the ED due to nausea/ vomiting and low grade fever x1 day. UTI POA w/ chronic indwelling Salazar, bilateral pyelonephritis: - Admit to med/surg - IV Rocephin daily - Tylenol PRN for pain/fever - IV NSS @ 100 ml/hr - Continue Probiotic - UCx pending -- UCx in 01/2017- Enterococcus faecalis and Pseudomonas aeruginosa- sensitive to penicillins/cephalosporins - Abdominal CT- w/ bilateral pyelo, no obstruction noted, 4 mm calculus of urinary bladder - CXR w/out acute cardiopulmonary process - Follow CBC and PRP ARACELI secondary to dehydration/pyelo: IVF as above, follow PRP MS- STABLE: - Continue Baclofen pump, Cytotec 100 mcg PO BID - Aspiration precautions Depression: Continue Zoloft 100 mg daily DVT prophylaxis: Lovenox SQ daily Code status: LEVEL I, FULL Dispo: From home, lives w/ - CM consulted i personally examined pt and verified all cardona points w T [place] PAC biggest complaint right now is weakness vitals noted nad fatigued breathing unlabored b/l pyelonephritis with sepsis present on admission related to chronic indwelling salazar -abx, supportive care -change salazar prior to discharge otherwise as above Resuscitation Status LEVEL I, FULL VTE Prophylaxis Will order VTE Prophylaxis: Yes
--- NOTE | 2017-07-10 16:24 | EMERGENCY ROOM VISIT NOTE ---
History Report prepared by [place]: Mojgan James Under the Supervision of: Dr. Da Garcia D.O. First contact with patient: 10:26 Chief Complaint: ILLNESS Stated Complaint: ILLNESS History of Present Illness The patient is a 66 year old male who presents to the Emergency Room with complaints of episodes of vomiting beginning last night. The patient's home nurse said there was blood in his vomit this morning. Two nights ago, the patient had diarrhea which has since resolved. Vomiting has been persistent. No exacerbating or remitting factors. The patient has a history of MS and UTIs. The patient has a baclofen pump. The patient has a Cochran catheter. His catheter was last changed on Thursday. He denies any problems or pain with his catheter. Pt denies headache, change in vision, fevers, chest pain, shortness of breath, diarrhea, pain with urination, and melena. Source of History: patient Onset: last night Position: other (generalized) Quality: other (vomiting) Timing: other (episodes) Associated Symptoms: + nausea, + vomiting, No fevers, No headache, No chest pain, No SOB, No diarrhea, No urinary symptoms Review of Systems See HPI for pertinent positives & negatives. A total of 10 systems reviewed and were otherwise negative. Past Medical & Surgical Medical Problems: (1) MS (multiple sclerosis) (2) Pyelonephritis (3) UTI,MULTIPLE SCLEROSIS,VOMITING Family History Cancer (lung, pancreatic) Lung disease Social History Smoking Status: Never Smoker Drug Use: none Marital Status: Occupation Status: retired, disabled Current/Historical Medications Scheduled Ascorbic Acid (Ascorbic Acid), 1,000 MG PO QAM B-Complex W/ Folic Acid (Super B Complex Maxi), 1 TAB PO QAM Calcium/Vitamin D (Os-Wild 500 Plus D), 1 TAB PO Q2D Cholecalciferol (Vitamin D3), 5,000 UNITS PO QAM Docusate Sodium (Stool Softener), 200 MG PO BID Fish Oil (Coleman-3), 1 CAP PO BID Misoprostol (Cytotec), 100 MCG PO BID Naproxen (Aleve), 220 MG PO UD Ocrelizumab (Ocrevus), 1 DOSE IV Q6MO Saccharomyces Boulardii (Probiotic), 1 CAP PO QAM Sertraline (Zoloft), 100 MG PO QAM Sodium Phosphates (Fleet Enema Six Pack), 1 RE THREE TIMES WEEKLY [Baclofen Pump], SQ CONTINOUS Scheduled PRN Acetaminophen (Tylenol), 500 MG PO Q4H PRN for Pain or Fever Baclofen (Lioresal), 0.5 TAB PO DAILY PRN for Muscle Spasms Allergies Coded Allergies: No Known Allergies (Verified , 07/10/17) Physical Exam Vital Signs Date Time Temp Pulse Resp B/P (MAP) Pulse Ox O2 Delivery O2 Flow Rate FiO2 07/10/17 16:00 93 20 108/51 96 Nasal Cannula 2.0 07/10/17 15:33 93 Nasal Cannula 2.0 07/10/17 15:30 97 16 106/58 89 Room Air 07/10/17 14:27 111 24 153/82 96 Room Air 07/10/17 13:10 94 20 125/66 95 Room Air 07/10/17 12:50 88 07/10/17 11:51 85 16 118/68 95 Room Air 07/10/17 11:02 82 17 149/82 95 Room Air 07/10/17 10:27 36.9 83 17 132/80 95 Room Air 07/10/17 10:22 94 Physical Exam GENERAL: Laying up in bed, alert, chronically ill, disheveled appearing, well nourished, no distress, non-toxic EYE EXAM: normal conjunctiva. OROPHARYNX: no exudate, no erythema, lips, buccal mucosa, and tongue normal and mucous membranes are moist NECK: supple, no nuchal rigidity, no adenopathy, non-tender LUNGS: Clear to auscultation. Normal chest wall mechanics HEART: no murmurs, S1 normal and S2 normal ABDOMEN: Old abdominal incisions with firm metallic foreign body in right lower quadrant. abdomen soft, non-tender, normo-active bowel sounds, no masses, no rebound or guarding. BACK: Back is symmetrical on inspection and there is no deformity, no midline tenderness, no CVA tenderness. SKIN: no rashes and no bruising UPPER EXTREMITIES: upper extremities are grossly normal. LOWER EXTREMITIES: No pitting edema. NEURO EXAM: Awake, alert, following commands, neurologic at baseline. Medical Decision & Procedures ER Provider Diagnostic Interpretation: Radiology results as stated below per my review and the radiologist's interpretation: ABDOMEN AND PELVIS CT WITH IV CONTRAST COMPARISON STUDY: CT 09/23/2016. FINDINGS: Mild dependent subsegmental bibasilar atelectasis. No pneumatosis or pneumoperitoneum. Imaged inferior cardiac chambers are unremarkable without pericardial effusion. Cholelithiasis within a irregularly contracted gallbladder, unchanged. Multiple hepatic cysts redemonstrated measuring up to 2.1 cm within the left hepatic lobe. Spleen, pancreas and adrenal glands are unremarkable. There is mild bilateral perinephric stranding with urothelial enhancement of the bilateral ureters. There is patchy enhancement of the bilateral kidneys, left greater than right. No renal calculi or obstructive uropathy. There is bladder wall thickening with moderate perivesicular inflammatory stranding. Cochran catheter is present within the mid urinary bladder along with nondependent urinary bladder air. Additionally, there is a 4 mm calcification of the dependent bladder. Previously noted nonobstructing calculus of the inferior pole left kidney is no longer identified. Punctate calculus of the interpolar left kidney. Moderate atherosclerosis of the aorta Vasculature with suspected high-grade luminal narrowing again seen within the region of the distal right common iliac artery. No bulky adenopathy. Duodenal diverticulum. No bowel structure or focal bowel wall thickening. Normal appendix. Battery pack of the right lower anterior abdominal wall with single stimulator lead entering the central canal terminating at the level the midthoracic spine. Bones appear mildly demineralized and appear intact. IMPRESSION: 1. Bilateral perinephric stranding with patchy enhancement of the bilateral kidneys and bilateral urothelial enhancement of the ureters suggest pyelonephritis with ascending infectious ureteritis. 2. Wall thickening of the bladder with perivesicular inflammatory stranding suggests cystitis. 4 mm calculus of the dependent urinary bladder. 3. Punctate calculus of the interpolar left kidney with previously noted nonobstructing 3 mm left renal calculus no longer identified, likely passed in the interval 4. Cholelithiasis. 5. Additional findings as above. Electronically signed by: Durga Case M.D. SINGLE VIEW CHEST CLINICAL HISTORY: Change in mental status. FINDINGS: An AP, portable, upright chest radiograph is compared to study dated 05/14/2017. Correlation is made with chest CT dated 12/21/2014. The examination is degraded by portable technique and patient rotation. The heart is enlarged. The pulmonary vasculature is noncongested. The lungs and pleural spaces are clear. No pneumothorax is seen. The skeletal structures are osteopenic. The bony thorax is grossly intact. IMPRESSION: Cardiomegaly with no acute cardiopulmonary abnormality. Electronically signed by: Aldair Yeager M.D. Laboratory Results 07/10/17 11:05 Red Blood Count 5.21, Mean Corpuscular Volume 89.6, Mean Corpuscular Hemoglobin 31.7, Mean Corpuscular Hemoglobin Concent 35.3, Mean Platelet Volume 10.4, Neutrophils (%) (Auto) 88.9, Lymphocytes (%) (Auto) 2.0, Monocytes (%) (Auto) 8.5, Eosinophils (%) (Auto) 0.1, Basophils (%) (Auto) 0.1, Neutrophils # (Auto) 17.36, Lymphocytes # (Auto) 0.40, Monocytes # (Auto) 1.66, Eosinophils # (Auto) 0.01, Basophils # (Auto) 0.02 07/10/17 11:05 Test 07/10/17 11:05 07/10/17 11:45 07/10/17 13:46 White Blood Count 19.52 K/uL (4.8-10.8) Red Blood Count 5.21 M/uL (4.7-6.1) Hemoglobin 16.5 g/dL (14.0-18.0) Hematocrit 46.7 % (42-52) Mean Corpuscular Volume 89.6 fL (80-100) Mean Corpuscular Hemoglobin 31.7 pg (25-34) Mean Corpuscular Hemoglobin Concent 35.3 g/dl (32-36) Platelet Count 235 K/uL (130-400) Mean Platelet Volume 10.4 fL (7.4-10.4) Neutrophils (%) (Auto) 88.9 % Lymphocytes (%) (Auto) 2.0 % Monocytes (%) (Auto) 8.5 % Eosinophils (%) (Auto) 0.1 % Basophils (%) (Auto) 0.1 % Neutrophils # (Auto) 17.36 K/uL (1.4-6.5) Lymphocytes # (Auto) 0.40 K/uL (1.2-3.4) Monocytes # (Auto) 1.66 K/uL (0.11-0.59) Eosinophils # (Auto) 0.01 K/uL (0-0.5) Basophils # (Auto) 0.02 K/uL (0-0.2) RDW Standard Deviation 48.3 fL (36.4-46.3) RDW Coefficient of Variation 14.7 % (11.5-14.5) Immature Granulocyte % (Auto) 0.4 % Immature Granulocyte # (Auto) 0.07 K/uL (0.00-0.02) Prothrombin Time 10.9 SECONDS (9.0-12.0) Prothromb Time International Ratio 1.0 (0.9-1.1) Activated Partial Thromboplast Time 28.3 SECONDS (21.0-31.0) Partial Thromboplastin Ratio 1.1 Anion Gap 3.0 mmol/L (3-11) Est Creatinine Clear Calc Drug Dose 57.3 ml/min Estimated GFR () 60.6 Estimated GFR (Non- 52.3 BUN/Creatinine Ratio 16.7 (10-20) Calcium Level 9.2 mg/dl (8.5-10.1) Total Bilirubin 1.3 mg/dl (0.2-1) Direct Bilirubin 0.3 mg/dl (0-0.2) Aspartate Amino Transf (AST/SGOT) 17 U/L (15-37) Alanine Aminotransferase (ALT/SGPT) 29 U/L (12-78) Alkaline Phosphatase 100 U/L (45-117) Troponin I < 0.015 ng/ml (0-0.045) Total Protein 7.7 gm/dl (6.4-8.2) Albumin 3.3 gm/dl (3.4-5.0) Urine Color DK YELLOW Urine Appearance TURBID (CLEAR) Urine pH 6.5 (4.5-7.5) Urine Specific [place] 1.018 (1.000-1.030) Urine Protein 3+ (NEG) Urine Glucose (UA) NEG (NEG) Urine Ketones TRACE (NEG) Urine Occult Blood 3+ (NEG) Urine Nitrite POS (NEG) Urine Bilirubin NEG (NEG) Urine Urobilinogen NEG (NEG) Urine Leukocyte Esterase LARGE (NEG) Urine WBC (Auto) >30 /hpf (0-5) Urine RBC (Auto) 10-30 /hpf (0-4) Urine Hyaline Casts (Auto) 5-10 /lpf (0-5) Urine Epithelial Cells (Auto) 10-20 /lpf (0-5) Urine Bacteria (Auto) 4+ (NEG) Urine Crystals CALCIUM OXALATE (NONE Urine Pathogenic Casts /lpf (0) Urine Yeast (Auto) (NONE PRSENT) Lactic Acid Level 2.0 mmol/L (0.4-2.0) Laboratory results per my review. Medications Administered Medications (Trade) Dose Ordered Sig/Yovana Route Start Time Stop Time Status Last Admin Dose Admin Ceftriaxone Sodium (Rocephin Inj) 1 gm NOW STAT IV 07/10/17 14:23 07/10/17 14:41 DC 07/10/17 14:41 1 GM Sodium Chloride 2,000 ml @ 999 mls/hr Q2H1M STAT IV 07/10/17 14:28 07/10/17 16:28 07/10/17 14:41 999 MLS/HR Levofloxacin (Levaquin / D5W) 500 mg NOW ONCE IV 07/10/17 14:30 07/10/17 14:31 DC 07/10/17 16:06 500 MG Piperacillin Sod/ Tazobactam Sod (Zosyn Iv) 4.5 gm NOW STAT IV 07/10/17 14:40 07/10/17 14:41 DC 07/10/17 15:29 4.5 GM ED Course ED COURSE: Vital signs were reviewed and showed normal The patients medical record was reviewed The above diagnostic studies were performed and reviewed. ED treatments and interventions as stated above. 1034: The patient was evaluated in room A10. A complete history and physical examination was performed. 1423: Ordered Rocephin Inj 1 gm IV. 1427: I updated the patient on his test results. 1428: Ordered Sodium Chloride 2000 ml @ 999 mls/hr IV. 1430: Ordered Levofloxacin 500 mg IV. 1440: Ordered Zosyn Iv 4.5 gm IV. 1447: I [facility] [place] He will evaluate the patient for further management. 1451: Upon reevaluation, the patient is resting comfortably.I discussed my findings with the patient and he understands and agrees with the treatment plan. Based on the patients age, coexisting illnesses, exam and lab findings the decision to treat as an inpatient was made. The patient remained stable while under my care. The patient will be evaluated for further management. Medical Decision Differential diagnoses includes but is not limited to gastritis, peptic ulcer disease, GERD, gallbladder disease, pancreatitis, small bowel obstruction, acute coronary syndrome, pericarditis, ischemic bowel, irritable bowel disease, irritable bowel syndrome, appendicitis, diverticulitis, malignancy, hernia, urinary tract infection, torsion, perforation, trauma, infectious. Patient is a 66-year-old male with a past medical history of MS who presents the ER with persistent vomiting since last night. Labs show a leukocytosis of 20,000. Creatinine at 1.4. T bili slightly elevated. LFTs, troponin were unremarkable. Lactic acid was 2. UA shows infection. CT shows bilateral pyelonephritis. Patient was given IV Zosyn and Levaquin with his previous cultures. He was given 2 L normal saline. He was updated at bedside. He was admitted to internal medicine with pyelonephritis. Medication Reconcilliation Current Medication List: was personally reviewed by me Blood Pressure Screening Patient's blood pressure: Normal blood pressure Consults Time Called: 1440 Consulting Physician: Dr. Perez Returned Call: 1447 I reviewed the patient's case with Dr. Perez. He will evaluate the patient for further management. Impression Primary Impression: Sepsis Additional Impression: UTI (urinary tract infection) Scribe Attestation The scribe's documentation has been prepared under my direction and personally reviewed by me in its entirety. I confirm that the note above accurately reflects all work, treatment, procedures, and medical decision making performed by me. Departure Information Dispostion Being Evaluated By Surgeon Referrals Gato Robbins M.D. (PCP) Patient Instructions My [facility] Problem Qualifiers Primary Impression: Sepsis Sepsis type: sepsis due to unspecified organism Qualified Codes: A41.9 - Sepsis, unspecified organism Additional Impression: UTI (urinary tract infection) Urinary tract infection type: acute pyelonephritis Qualified Codes: N10 - Acute pyelonephritis
[2017-07-10 16:45] VITALS: BP 120/68; PULSE 100; TEMP 36.8; O2SAT 91; Ht 180.3 cm; Wt 76.6 kg
[2017-07-10] MEDS: SODIUM CHLORIDE 0.9% 1000ML 1,000 ML IV SCH (17:05)
[2017-07-10] MEDS: MISOPROSTOL 100 MCG TAB PO SCH (20:40)
[2017-07-10] MEDS: DOCUSATE SODIUM 100 MG CAP PO SCH (20:55)
[2017-07-10] MEDS: ENOXAPARIN 40 MG/0.4 ML SYR SQ SCH (20:55)
[2017-07-10] MEDS: OMEGA-3 (PURIFIED FISH OIL) 1 GM CAP PO SCH (20:56)
[2017-07-10 23:56] VITALS: BP 98/63; PULSE 81; TEMP 37; O2SAT 92
[2017-07-11] MEDS: SODIUM CHLORIDE 0.9% 1000ML 1,000 ML IV SCH ×3 (02:38→22:18)
[2017-07-11 07:45] VITALS: BP 104/64; PULSE 75; TEMP 36.7; O2SAT 93
[2017-07-11 08:07] LABS: HEMOGLOBIN 12.9 g/dL (14.0-18.0); MEAN CELL VOLUME 88.5 fL (80-100); MEAN CORPUSCULAR HEMOGLOBIN 30.9 pg (25-34); MEAN CORPUSCULAR HGB CONC 34.9 g/dl (32-36); MEAN PLATELET VOLUME 10.3 fL (7.4-10.4); PLATELET COUNT 193 K/uL (130-400); RED CELL DISTRIBUTION WIDTH CV 15.2 % (11.5-14.5); RED CELL DISTRIBUTION WIDTH SD 49.1 fL (36.4-46.3)
[2017-07-11 08:10] VITALS: O2SAT 93
[2017-07-11] MEDS: CHOLECALCIFEROL 1000 INTER.UNIT TAB PO SCH (08:45)
[2017-07-11] MEDS: SACCHAROMYCES BOUL (FLORASTOR) 250 MG CAP PO SCH (08:45)
[2017-07-11] MEDS: CALCIUM 600MG + VIT D 400 IU TAB PO SCH (08:45)
[2017-07-11] MEDS: MISOPROSTOL 100 MCG TAB PO SCH ×2 (08:45→20:50)
[2017-07-11] MEDS: SERTRALINE HCL 100 MG TAB PO SCH (08:45)
[2017-07-11] MEDS: OMEGA-3 (PURIFIED FISH OIL) 1 GM CAP PO SCH ×2 (08:45→20:44)
[2017-07-11] MEDS: DOCUSATE SODIUM 100 MG CAP PO SCH ×2 (08:45→20:44)
[2017-07-11 08:50] LABS: CALCIUM 7.8 mg/dl (8.5-10.1); CREATININE 1.11 mg/dl (0.60-1.40); POTASSIUM 3.4 mmol/L (3.5-5.1)
[2017-07-11] MEDS ORDERED: POTASSIUM CHLORIDE 20 MEQ TABCR PO STA (12:10)
[2017-07-11] MEDS: CEFTRIAXONE SOD INJ 1 GM in DEXTROSE 5% ADD-VANTAGE 50ML 50 ML IV SCH (12:11)
--- NOTE | 2017-07-11 14:53 | Progress Note ---
Subjective Date of Service: Jul 11, 2017. Subjective Pt evaluation today including: conversation w/ patient, physical exam, chart review, lab review, review of studies, review of inpatient medication list Voiding: salazar catheter in place Feeling generalized weakness, decreased appetite and tired, eating is very poor , report lower back skin possible has blister which is not new Problem List Medical Problems: (1) Constipation Status: Acute (2) Sepsis Status: Acute (3) UTI (urinary tract infection) Status: Acute (4) Vomiting Status: Acute Review of Systems Constitutional: + weakness, + fatigue, No fever, No chills, No sweats, No weight loss, No problem reported Eyes: No worsening of vision, No eye pain, No redness, No discharge, No diplopia ENT: No hearing loss, No unusual epistaxis, No nasal symptoms, No sore throat, No tinnitus, No dental problems, No trouble swallowing Respiratory: No cough, No sputum, No wheezing, No shortness of breath, No dyspnea on exertion, No dyspnea at rest, No hemoptysis Cardiac: No chest pain, No orthopnea, No PND, No edema, No claudication, No palpitations Abdomen: No pain, No nausea, No vomiting, No diarrhea, No constipation Musculoskeletal: No joint pain, No muscle pain, No swelling, No calf pain Male : No dysuria, No urinary frequency, No incontinence, No nocturia more than once/night, No slowing stream, No hematuria Neurologic: + problem reported (Bilateral lower extremity paralyzed, has been bedridden to admission because of multiple sclerosis) Psychiatric: No depression symptoms, No anhedonism, No anxiety, No insomnia, No substance abuse Heme: No abnormal bleeding/bruising, No clotting problems, No swollen lymph nodes, No night sweats Endo: No fatigue, No excessive thirst, No excessive urination Skin: No rash, No itch, No new/changing skin lesions, No color change, No bleeding Objective Vital Signs Date Time Temp Pulse Resp B/P (MAP) Pulse Ox O2 Delivery O2 Flow Rate FiO2 07/11/17 07:45 36.7 75 18 104/64 (77) 93 Room Air 07/11/17 00:20 Room Air 07/10/17 23:56 37.0 81 18 98/63 (75) 92 Room Air 07/10/17 19:45 Room Air 07/10/17 16:45 36.8 100 18 120/68 91 Room Air 07/10/17 16:00 93 20 108/51 96 Nasal Cannula 2.0 07/10/17 15:33 93 Nasal Cannula 2.0 07/10/17 15:30 97 16 106/58 89 Room Air Physical Exam General Appearance: WD/WN, no apparent distress, + pertinent finding (Frail, chronically ill looking, very weak ) Eyes: normal inspection, PERRL, EOMI, sclerae normal ENT: normal ENT inspection, hearing grossly normal, pharynx normal Neck: supple, no adenopathy, thyroid normal, no JVD, no carotid bruits, trachea midline Respiratory/Chest: chest non-tender, normal breath sounds, no respiratory distress, no accessory muscle use, + decreased breath sounds Cardiovascular: regular rate, rhythm, no edema, no gallop, no JVD, no murmur Abdomen: normal bowel sounds, non tender, soft, no organomegaly, no pulsatile mass Extremities: normal range of motion, non-tender, normal inspection, no calf tenderness, normal capillary refill, pelvis stable, + pedal edema Neurologic/Psychiatric: alert, normal mood/affect, oriented x 3, + pertinent finding (No facial droop, bilateral lower extremities paralyzed) Skin: normal color, warm/dry, no rash Lymphatic: no adenopathy Laboratory Results Last 24 Hours Test 07/11/17 07:38 White Blood Count 18.40 K/uL Red Blood Count 4.18 M/uL Hemoglobin 12.9 g/dL Hematocrit 37.0 % Mean Corpuscular Volume 88.5 fL Mean Corpuscular Hemoglobin 30.9 pg Mean Corpuscular Hemoglobin Concent 34.9 g/dl RDW Standard Deviation 49.1 fL RDW Coefficient of Variation 15.2 % Platelet Count 193 K/uL Mean Platelet Volume 10.3 fL Sodium Level 140 mmol/L Potassium Level 3.4 mmol/L Chloride Level 109 mmol/L Carbon Dioxide Level 23 mmol/L Anion Gap 8.0 mmol/L Blood Urea Nitrogen 27 mg/dl Creatinine 1.11 mg/dl Est Creatinine Clear Calc Drug Dose 71.6 ml/min Estimated GFR () 80.9 Estimated GFR (Non- 69.8 BUN/Creatinine Ratio 24.1 Random Glucose 98 mg/dl Calcium Level 7.8 mg/dl Assessment and Plan 66 y/o male with a history of MS, cognitive disorder, depression, neurogenic bladder and neurogenic bowel admitted on July 10, 2017, because of UTI and pyelonephritis, UTI pyelonephritis, POA w/ chronic indwelling Salazar, bilateral pyelonephritis: Possible mild sepsis upon admission - Abdominal CT- w/ bilateral pyelo, no obstruction noted, 4 mm calculus of urinary bladder - CXR w/out acute cardiopulmonary process ARACELI upon admission secondary to dehydration/pyelo: IVF, is improved Multiple sclerosis, STABLE: Continue IV Rocephin daily, and supportive care, continue IV fluid, continue probiotic, follow-up urine culture and sensitivities, Per medical record UCx in 01/2017- Enterococcus faecalis and Pseudomonas aeruginosa- sensitive to penicillins/cephalosporins Continue Baclofen pump, Cytotec 100 mcg PO BID Continue aspiration precautions Follow-up tomorrow morning lab DVT prophylaxis: Lovenox SQ daily Code status: LEVEL I, FULL Dispo: From home, lives w/ Continued [facility] stay due to: multiple IV medications needed Discharge planning: home
[2017-07-11 15:22] VITALS: BP 112/64; PULSE 84; TEMP 38.2; O2SAT 97
[2017-07-11 16:22] VITALS: O2SAT 93
[2017-07-11] MEDS: ENOXAPARIN 40 MG/0.4 ML SYR SQ SCH (20:44)
[2017-07-11 23:05] VITALS: BP 115/66; PULSE 72; TEMP 37.2; O2SAT 95
[2017-07-12 07:07] LABS: HEMOGLOBIN 12.9 g/dL (14.0-18.0); MEAN CELL VOLUME 87.7 fL (80-100); MEAN CORPUSCULAR HEMOGLOBIN 30.6 pg (25-34); MEAN CORPUSCULAR HGB CONC 34.9 g/dl (32-36); MEAN PLATELET VOLUME 10.3 fL (7.4-10.4); PLATELET COUNT 179 K/uL (130-400); RED CELL DISTRIBUTION WIDTH CV 15.2 % (11.5-14.5); WHITE BLOOD COUNT 11.19 K/uL (4.8-10.8)
[2017-07-12 07:24] VITALS: BP 133/70; PULSE 68; TEMP 36.9; O2SAT 95
[2017-07-12 07:39] LABS: CALCIUM 8.1 mg/dl (8.5-10.1); CREATININE 1.06 mg/dl (0.60-1.40); POTASSIUM 3.3 mmol/L (3.5-5.1)
[2017-07-12] MEDS ORDERED: POTASSIUM CHLORIDE 20 MEQ TABCR PO STA (07:46)
[2017-07-12] MEDS: SODIUM CHLORIDE 0.9% 1000ML 1,000 ML IV SCH (08:22)
[2017-07-12] MEDS: CHOLECALCIFEROL 1000 INTER.UNIT TAB PO SCH (08:23)
[2017-07-12] MEDS: MISOPROSTOL 100 MCG TAB PO SCH ×2 (08:23→21:01)
[2017-07-12] MEDS: SERTRALINE HCL 100 MG TAB PO SCH (08:23)
[2017-07-12] MEDS: OMEGA-3 (PURIFIED FISH OIL) 1 GM CAP PO SCH ×2 (08:23→21:01)
[2017-07-12] MEDS: SACCHAROMYCES BOUL (FLORASTOR) 250 MG CAP PO SCH (08:23)
[2017-07-12] MEDS: DOCUSATE SODIUM 100 MG CAP PO SCH ×2 (08:24→21:02)
[2017-07-12] MEDS: CEFTRIAXONE SOD INJ 1 GM in DEXTROSE 5% ADD-VANTAGE 50ML 50 ML IV SCH (13:38)
[2017-07-12 15:47] VITALS: BP 117/70; PULSE 61; TEMP 37.3; O2SAT 90
--- NOTE | 2017-07-12 16:03 | Progress Note ---
Subjective Date of Service: Jul 12, 2017. Subjective Pt evaluation today including: conversation w/ patient, physical exam, chart review, lab review, review of studies, conversation w/ independent crop consultant, review of inpatient medication list Doing the same, no more spiking fever, decreased appetite, however eating fair, no other complaint Problem List Medical Problems: (1) Constipation Status: Acute (2) Sepsis Status: Acute (3) UTI (urinary tract infection) Status: Acute (4) Vomiting Status: Acute Review of Systems Constitutional: + weakness, + fatigue, No fever, No chills, No sweats, No weight loss, No problem reported Eyes: No worsening of vision, No eye pain, No redness, No discharge, No diplopia ENT: No hearing loss, No unusual epistaxis, No nasal symptoms, No sore throat, No tinnitus, No dental problems, No trouble swallowing Respiratory: No cough, No sputum, No wheezing, No shortness of breath, No dyspnea on exertion, No dyspnea at rest, No hemoptysis Cardiac: No chest pain, No orthopnea, No PND, No edema, No claudication, No palpitations Abdomen: No pain, No nausea, No vomiting, No diarrhea, No constipation Musculoskeletal: + joint pain, No muscle pain, No swelling, No calf pain Male : No dysuria, No urinary frequency, No incontinence, No nocturia more than once/night, No hematuria Psychiatric: No depression symptoms, No anhedonism, No anxiety, No insomnia, No substance abuse Heme: No abnormal bleeding/bruising, No clotting problems, No swollen lymph nodes, No night sweats Endo: + fatigue, No excessive thirst, No excessive urination Skin: + problem reported (Blister in lower back), No rash, No itch, No new/ changing skin lesions, No color change, No bleeding Objective Vital Signs Date Time Temp Pulse Resp B/P (MAP) Pulse Ox O2 Delivery O2 Flow Rate FiO2 07/12/17 15:47 37.3 61 20 117/70 (86) 90 Room Air 07/12/17 08:45 Room Air 07/12/17 07:24 36.9 68 18 133/70 (91) 95 Room Air 07/12/17 00:10 Room Air 07/11/17 23:05 37.2 72 18 115/66 (82) 95 Room Air 07/11/17 20:27 Room Air 07/11/17 16:22 93 Room Air Physical Exam General Appearance: WD/WN, no apparent distress, + pertinent finding (Frail chronically ill looking,) Eyes: normal inspection, PERRL, EOMI, sclerae normal ENT: normal ENT inspection, hearing grossly normal, pharynx normal Neck: supple, no adenopathy, thyroid normal, no JVD, no carotid bruits, trachea midline Respiratory/Chest: chest non-tender, normal breath sounds, no respiratory distress, no accessory muscle use, + decreased breath sounds Cardiovascular: regular rate, rhythm, no edema, no gallop, no JVD, no murmur Abdomen: normal bowel sounds, non tender, soft, no organomegaly, no pulsatile mass, + pertinent finding (Cochran catheter in place with clear urine) Extremities: non-tender, normal inspection, no pedal edema, no calf tenderness , normal capillary refill, pelvis stable Neurologic/Psychiatric: science liaison II-XII nml as tested, normal mood/affect, + pertinent finding (Bilateral lower extremity paralyzed) Skin: normal color, warm/dry, no rash, + pertinent finding (lower back has blisters but there was no open wound) Lymphatic: no adenopathy Laboratory Results Last 24 Hours Test 07/12/17 06:49 White Blood Count 11.19 K/uL Red Blood Count 4.22 M/uL Hemoglobin 12.9 g/dL Hematocrit 37.0 % Mean Corpuscular Volume 87.7 fL Mean Corpuscular Hemoglobin 30.6 pg Mean Corpuscular Hemoglobin Concent 34.9 g/dl RDW Standard Deviation 49.0 fL RDW Coefficient of Variation 15.2 % Platelet Count 179 K/uL Mean Platelet Volume 10.3 fL Sodium Level 138 mmol/L Potassium Level 3.3 mmol/L Chloride Level 110 mmol/L Carbon Dioxide Level 24 mmol/L Anion Gap 4.0 mmol/L Blood Urea Nitrogen 25 mg/dl Creatinine 1.06 mg/dl Est Creatinine Clear Calc Drug Dose 74.9 ml/min Estimated GFR () 85.5 Estimated GFR (Non- 73.8 BUN/Creatinine Ratio 23.5 Random Glucose 92 mg/dl Calcium Level 8.1 mg/dl Assessment and Plan 66 y/o male with a history of multiple sclerosis, cognitive disorder, depression , neurogenic bladder and neurogenic bowel admitted on July 10, 2017, because of UTI and pyelonephritis, E. coli UTI pyelonephritis, POA w/ chronic indwelling Cochran, bilateral pyelonephritis: Possible mild sepsis upon admission Was having a spiking fever at 38.2 in the first day of admission, no more spiking fever Stable improving - Abdominal CT- w/ bilateral pyelo, no obstruction noted, 4 mm calculus of urinary bladder - CXR w/out acute cardiopulmonary process ARACELI upon admission secondary to dehydration/pyelo: IVF, resolved, will discontinue IV fluid Multiple sclerosis, STABLE: Has been on IV Rocephin daily, was switched to oral Ceftin per sensitivities of the E. coli UTI Pyelo, this is day 2 of antibiotics, will recommend about 10-14 days of total antibiotic. Continue Baclofen pump, Cytotec 100 mcg PO BID Continue aspiration precautions Follow-up tomorrow morning lab DVT prophylaxis: Lovenox SQ daily Code status: LEVEL I, FULL Dispo: From home, lives w/ , possible can be discharged tomorrow if continue to be stable Continued [facility] stay due to: multiple IV medications needed Discharge planning: home
[2017-07-12] MEDS: CEFUROXIME AXETIL 500 MG TAB PO SCH (21:01)
[2017-07-12] MEDS: ENOXAPARIN 40 MG/0.4 ML SYR SQ SCH (21:02)
[2017-07-12 23:10] VITALS: BP 137/67; PULSE 62; TEMP 37.1; O2SAT 92
[2017-07-13 07:29] VITALS: BP 137/72; PULSE 55; TEMP 36.9; O2SAT 91
[2017-07-13 07:45] LABS: HEMATOCRIT 36.5 % (42-52); HEMOGLOBIN 12.7 g/dL (14.0-18.0); MEAN CELL VOLUME 88.2 fL (80-100); MEAN CORPUSCULAR HEMOGLOBIN 30.7 pg (25-34); MEAN CORPUSCULAR HGB CONC 34.8 g/dl (32-36); MEAN PLATELET VOLUME 10.4 fL (7.4-10.4); PLATELET COUNT 187 K/uL (130-400); RED CELL DISTRIBUTION WIDTH CV 15.1 % (11.5-14.5); RED CELL DISTRIBUTION WIDTH SD 48.9 fL (36.4-46.3); WHITE BLOOD COUNT 8.76 K/uL (4.8-10.8)
[2017-07-13 08:20] LABS: CALCIUM 8.1 mg/dl (8.5-10.1); CREATININE 0.89 mg/dl (0.60-1.40); POTASSIUM 3.3 mmol/L (3.5-5.1)
[2017-07-13] MEDS: DOCUSATE SODIUM 100 MG CAP PO SCH (08:23)
[2017-07-13] MEDS: CHOLECALCIFEROL 1000 INTER.UNIT TAB PO SCH (08:23)
[2017-07-13] MEDS: MISOPROSTOL 100 MCG TAB PO SCH (08:23)
[2017-07-13] MEDS: OMEGA-3 (PURIFIED FISH OIL) 1 GM CAP PO SCH (08:23)
[2017-07-13] MEDS: SACCHAROMYCES BOUL (FLORASTOR) 250 MG CAP PO SCH (08:23)
[2017-07-13] MEDS: SERTRALINE HCL 100 MG TAB PO SCH (08:23)
[2017-07-13] MEDS: CALCIUM 600MG + VIT D 400 IU TAB PO SCH (08:24)
[2017-07-13] MEDS: CEFUROXIME AXETIL 500 MG TAB PO SCH (08:24)
--- NOTE | 2017-07-13 08:51 | Hospitalist Progress Note ---
Hospitalist Progress Note Date of Service Jul 13, 2017. Objective Vital Signs Date Time Temp Pulse Resp B/P (MAP) Pulse Ox O2 Delivery O2 Flow Rate FiO2 07/13/17 07:29 36.9 55 18 137/72 (93) 91 Room Air 07/13/17 00:00 Room Air 07/12/17 23:10 37.1 62 18 137/67 (90) 92 Room Air 07/12/17 20:00 Room Air 07/12/17 17:00 Room Air 07/12/17 15:47 37.3 61 20 117/70 (86) 90 Room Air 07/12/17 08:45 Room Air Laboratory Results Last 24 Hours Test 07/13/17 07:01 White Blood Count 8.76 K/uL Red Blood Count 4.14 M/uL Hemoglobin 12.7 g/dL Hematocrit 36.5 % Mean Corpuscular Volume 88.2 fL Mean Corpuscular Hemoglobin 30.7 pg Mean Corpuscular Hemoglobin Concent 34.8 g/dl RDW Standard Deviation 48.9 fL RDW Coefficient of Variation 15.1 % Platelet Count 187 K/uL Mean Platelet Volume 10.4 fL Sodium Level 139 mmol/L Potassium Level 3.3 mmol/L Chloride Level 107 mmol/L Carbon Dioxide Level 25 mmol/L Anion Gap 7.0 mmol/L Blood Urea Nitrogen 20 mg/dl Creatinine 0.89 mg/dl Est Creatinine Clear Calc Drug Dose 89.3 ml/min Estimated GFR () 104.7 Estimated GFR (Non- 90.4 BUN/Creatinine Ratio 22.9 Random Glucose 84 mg/dl Calcium Level 8.1 mg/dl Assessment and Plan 66 y/o male with a history of multiple sclerosis, cognitive disorder, depression , neurogenic bladder and neurogenic bowel admitted on July 10, 2017, because of UTI and pyelonephritis, E. coli UTI pyelonephritis, POA w/ chronic indwelling Cochran, bilateral pyelonephritis: Possible mild sepsis upon admission - Afebrile - continue on ceftin 500 mg BID (day 3 of abx) - Abdominal CT- w/ bilateral pyelo, no obstruction noted, 4 mm calculus of urinary bladder - CXR w/out acute cardiopulmonary process ARACELI upon admission secondary to dehydration/pyelo - IVF given initially - now resolved - Cr trended down from 1.4 to 0.89 today Multiple sclerosis - Stable - Continue Baclofen pump, Cytotec 100 mcg PO BID - Aspiration precautions Mild hypokalemia - K 3.3, replace orally today DVT ppx: Lovenox SQ daily Code status: Full Dispo: From home, lives w/ , possible can be discharged today
[2017-07-13] MEDS ORDERED: POTASSIUM CHLORIDE 20 MEQ TABCR PO ONE (09:00)
[2017-07-13] MEDS ORDERED: CEFU1TAB35 PO (12:33)
--- NOTE | 2017-07-13 12:41 | Discharge Instructions ---
Discharge Instructions Date of Service Jul 13, 2017. Admission Reason for Admission: Pyelonephritis Discharge Discharge Diagnosis / Problem: UTI, bilateral pyelonephritis Discharge Goals Goal(s): Decrease discomfort, Improve function, Increase independence, Improve disease control Activity Recommendations Activity Limitations: resume your previous activity Lifting Limitations: none Exercise/Sports Limitations: none May Resume Sexual Activity: when tolerated Shower/Bathe: no limitations Driving or Machine Use: no limitations . Instructions / Follow-Up Instructions / Follow-Up You were admitted to [facility] with Urinary tract infection and diagnosed with bilateral pyelonephritis secondary to urinary tract infection. During your stay here you were treated with supportive care, antibiotics, fluids. The indwelling salazar catheter remained in place. Your symptoms improved and you were stable for discharge to home with home health services. Medications: Continue taking your medications as prescribed. Continue taking ceftin 500 mg twice daily x 7 more days to complete a 10 day course. Appointments: Follow up with PCP within 1 week. An appointment has been requested for you. Follow up with urology at [place] within 2-4 weeks. Please call to make an appointment. Current Hospital Diet Patient's current hospital diet: AHA Diet (Heart Healthy) Discharge Diet Recommended Diet: AHA Diet (Heart Healthy) Pending Studies Studies pending at discharge: no Medical Emergencies . Who to Call and When: Medical Emergencies: If at any time you feel your situation is an emergency, please call 911 immediately. . Non-Emergent Contact Non-Emergency issues call your: Primary Care Provider Call Non-Emergent contact if: you have a fever, temperature is above 100.5, your pain is not controlled, your pain is worsening, your pain is unusual for you, your pain is concerning you, you have any medication questions other concerns with your health. Call 911 or go directly to the Emergency Department if you experience any of the following: Chest pain, chest tightness, shortness of breath, abdominal pain , lightheadedness, dizziness, gastrointestinal bleeding, or have any other concerns regarding your health. . Past History Medical & Surgical History: (1) Pyelonephritis (2) Sepsis (3) UTI (urinary tract infection) (4) MS (multiple sclerosis) . "Provider Documentation" section prepared by Ellen Fuentes. . [place] Drug Monitoring Program Search Results: no issues identified
--- NOTE | 2017-07-13 12:57 | Discharge Summary ---
Discharge Summary Date of Service Jul 13, 2017. Discharge Summary Admission Date: Jul 10, 2017 at 15:06 Discharge Date: Jul 13, 2017 Principal Diagnosis: Bilateral pyelonephritis, E.coli urinary tract infection Problems/Secondary Diagnoses: Medical Problems: (1) MS (multiple sclerosis) (2) Pyelonephritis (3) UTI,MULTIPLE SCLEROSIS,VOMITING cognitive disorder depression neurogenic bladder and neurogenic bowel Immunizations: Have You Had Influenza Vaccine: Yes Influenza Vaccine Date: May 02, 2010 History of Tetanus Vaccine?: Unknown History of Pneumococcal: No History of Hepatitis B Vaccine: Unknown Procedures: SINGLE VIEW CHEST 07/10/17 IMPRESSION: Cardiomegaly with no acute cardiopulmonary abnormality. ABDOMEN AND PELVIS CT WITH IV CONTRAST 07/10/17 IMPRESSION: 1. Bilateral perinephric stranding with patchy enhancement of the bilateral kidneys and bilateral urothelial enhancement of the ureters suggest pyelonephritis with ascending infectious ureteritis. 2. Wall thickening of the bladder with perivesicular inflammatory stranding suggests cystitis. 4 mm calculus of the dependent urinary bladder. 3. Punctate calculus of the interpolar left kidney with previously noted nonobstructing 3 mm left renal calculus no longer identified, likely passed in the interval 4. Cholelithiasis. 5. Additional findings as above. Consultations: None Medication Reconciliation New Medications: Cefuroxime Axetil (Cefuroxime Axetil) 500 Mg Tab 500 MG PO BID for 7 Days, #14 TAB Continued Medications: Acetaminophen (Tylenol) 500 Mg Tab 500 MG PO Q4H PRN for Pain or Fever Ascorbic Acid (Ascorbic Acid) 1,000 Mg Tab 1000 MG PO QAM B-Complex W/ Folic Acid (Super B Complex Maxi) 1 Tab Tab 1 TAB PO QAM Baclofen (Lioresal) 10 Mg Tab 0.5 TAB PO DAILY PRN for Muscle Spasms Calcium/Vitamin D (Os-Wild 500 Plus D) Tab 1 TAB PO Q2D Cholecalciferol (Vitamin D3) 1,000 Unit Tab 5000 UNITS PO QAM Docusate Sodium (Stool Softener) 100 Mg Cap 200 MG PO BID Fish Oil ([place]-3) 1 Ea Cap 1 CAP PO BID Misoprostol (Cytotec) 200 Mcg Tab 100 MCG PO BID Naproxen (Aleve) 220 Mg Tab 220 MG PO UD Ocrelizumab (Ocrevus) 300 Mg/10 Ml Inj 1 DOSE IV Q6MO Saccharomyces Boulardii (Probiotic) 250 Mg Cap 1 CAP PO QAM Sertraline (Zoloft) 100 Mg Tab 100 MG PO QAM Sodium Phosphates (Fleet Enema Six Pack) 1 Bisi Bisi 1 RE THREE TIMES WEEKLY THURSDAY, Thursday, Thursday [Baclofen Pump] () SQ CONTINOUS Discharge Exam The patient was seen and examined this morning. Pt reports doing well today and states that he feels back to his personal baseline. He denies any fever, chills or sweats. No issues with abdominal pain or cramping. Salazar catheter is chronic. He follows with urology in [place] but is unable to remember the name of the provider. He does have regular follow up per his report. ROS: Constitutional: No fever, sweats or chills Eyes: No diplopia, no worsening or blurred vision ENT: normal hearing, no trouble swallowing, needs assistance with feeds Respiratory: No cough, sputum, dyspnea at rest or on exertion Cardiovascular: No chest pain, tightness or palpitations Abdomen: No pain, nausea, vomiting, diarrhea or constipation : indwelling salazar cath Musculoskeletal: No joint pain, calf pain, swelling Neurologic: + MS, bedbound at baseline, no paresthesias PE: General: awake, alert, no apparent distress, slowed but clear responses Head: Normocephalic, atraumatic ENT: PERRL, EOMI, no pharyngeal exudate, mucous membranes moist Chest: Clear to auscultation, on room air, no adventitious breath sounds Cardiac: Regular rate and rhythm, few extra beats, no murmur, no JVD, normal peripheral pulses, good capillary refill Abdominal: NABS x 4 quadrants, soft, nontender to palpation, + baclofen pump palpable in LLQ, no rebound, guarding or tenderness Extremities: Normal inspection,faint peripheral edema, BLE in waffle boots, no erythema, calfs nontender to palpation Psych: Normal mood and affect Neuro: AAO x 3, strength is decreased throughout d/t MS, speech is clear but slow, answers are appropriate Hospital Course 66 y/o male with a history of multiple sclerosis, cognitive disorder, depression , neurogenic bladder and neurogenic bowel admitted on July 10, 2017, because of UTI and pyelonephritis, E. coli UTI pyelonephritis, POA w/ chronic indwelling Salazar, bilateral pyelonephritis: Possible mild sepsis upon admission - Afebrile - continue on ceftin 500 mg BID (day 3 of abx) - will continue for total 10 day course. - Abdominal CT- w/ bilateral pyelo, no obstruction noted, 4 mm calculus of urinary bladder - pt follows with urology in [place] - will ask to see within 2-4 weeks for routine follow up. - CXR w/out acute cardiopulmonary process ARACELI upon admission secondary to dehydration/pyelo - IVF given initially - now resolved - Cr trended down from 1.4 to 0.89 today Multiple sclerosis - Stable - Continue internal Baclofen pump, Cytotec 100 mcg PO BID - Aspiration precautions Mild hypokalemia - K 3.3, replace orally today DVT ppx: Lovenox SQ daily Code status: Full Dispo: From home, lives w/ , discharge home [place] Physician Supervision Note: I interviewed and examined the patient. Discussed with Lizzy Fuentes PAC and agree with findings and plan as documented in the note. Any exceptions or clarifications are listed here: None Patient is in stable condition according to himself and his I did discuss at his bedside whether she can stay for another day he is going to be transitioned home on oral self your oxime due to sensitivities for an E. coli UTI present on admission he is chronically catheterized and this is a catheter associated UTI At time of discharge he did have some limitations based upon his multiple sclerosis however his temperature was 36 9 pulse 55 respiration rate 18 BP 137/ 72 his heart exam is regular lungs were clear his and himself both state he is at his baseline he will be discharged home with outpatient follow-up with urology for the noted mild bilateral hydronephrosis on 15 July Documented By: Tristan De Dios Total Time Spent: Greater than 30 minutes This includes examination of the patient, discharge planning, medication reconciliation, and communication with other providers. Discharge Instructions Please refer to the electronic Patient Visit Report (Discharge Instructions) for additional information. Follow-Up Follow up with your Primary Care Provider within 1 week. Follow up with urology within 2-4 weeks. Additional Copies To Gato Robbins M.D.
[2017-07-13 13:03] VITALS: BP 137/72; PULSE 55; TEMP 36.9; O2SAT 91
== END 2017-07-13 15:45 | disposition home health service (06) | DRG 698 ==
LOC: EDBD 10:13 → C.EDA 10:15 → C.MS2W 15:06 → ENRESERV 15:28
PROVIDERS: ADMIT Family Medicine; ATTEND Internal Medicine
DX: T83.511A Infection and inflammatory reaction due to indwelling urethral catheter, initial encounter (principal); A41.9 Sepsis, unspecified organism; N10 Acute pyelonephritis; N39.0 Urinary tract infection, site not specified; B96.20 Unspecified Escherichia coli [E. coli] as the cause of diseases classified elsewhere; E87.6 Hypokalemia; E86.0 Dehydration; N31.9 Neuromuscular dysfunction of bladder, unspecified; G35 Multiple sclerosis; F32.9 Major depressive disorder, single episode, unspecified; F09 Unspecified mental disorder due to known physiological condition; Z51.81 Encounter for therapeutic drug level monitoring; Z79.899 Other long term (current) drug therapy; Z87.440 Personal history of urinary (tract) infections; Z80.0 Family history of malignant neoplasm of digestive organs; Z80.1 Family history of malignant neoplasm of trachea, bronchus and lung; Y84.6 Urinary catheterization as the cause of abnormal reaction of the patient, or of later complication, without mention of misadventure at the time of the procedure

== ENCOUNTER → 2017-10-16 | Outpatient (CLI) | payer BC ==
[~2017-10-16] MED LIST changes: -CPR500 PO; -SACC250C11 PO
--- NOTE | 2017-10-28 14:10 | CODING QUERY MEDICAL NECESSITY ---
Valid Physician Order Needed A valid physician order must be submitted in order to properly bill for the service(s) provided, including date of service(s), valid diagnosis, and physician signature. If these tests are done on a recurring basis the original physician order must be submitted in order to code and bill for the service(s) provided. Please fax us the original, signed physician order so that we may expedite billing to [phone] DOS 10/16/2017 * URINE CULTURE * URINE M.I.C. SENSITIVITY * ID, URINE CULTURE ISOLATE * URINALYSIS W/ MICROSCOPY Thank you [facility]
== END | disposition home or self-care (01) ==
LOC: C.LABSPEC 16:04
PROVIDERS: ATTEND Urology
DX: N39.0 Urinary tract infection, site not specified (principal)

== ENCOUNTER → 2017-10-29 | Outpatient (CLI) | payer BC ==
--- NOTE | 2017-11-11 05:31 | CODING QUERY NO DIAGNOSIS ---
Valid Physician Order Needed A valid physician order must be submitted in order to properly bill for the service(s) provided, including date of service(s), valid diagnosis, and physician signature. If these tests are done on a recurring basis the original physician order must be submitted in order to code and bill for the service(s) provided. Please fax us the original, signed physician order so that we may expedite billing to [phone] DOS 10/29 * Urine Culture, ordered by Vaughn Thank you! Tanisha Roberson [facility] Information Management
== END | disposition home or self-care (01) ==
LOC: C.LABSPEC 15:29
PROVIDERS: ATTEND Urology
DX: Z01.89 Encounter for other specified special examinations (principal)